=== PATIENT | female | born 1945 | race Caucasian/White ===

== ENCOUNTER → 2017-09-07 15:25 | Outpatient (CLI) | payer MEDICARE, OTHER, SELFPAY ==
[2017-09-07 17:42] LABS: Hematocrit 37.6 % (37-47); Hemoglobin 12.5 g/dl (12.0-15.0); Mean Corp Hgb Conc 33.2 g/gl (32-36); Mean Corpuscular Hgb 29.2 pg (27.0-32.0); Mean Corpuscular Volume 87.9 fL (81-99); Mean Platelet Vol. 9.9 fl (6.2-12.0); Platelet Count 280 K/mm3 (150-450); RBC Distribution Width CV 12.7 % (11.6-14.6); RBC Distribution Width SD 39.9 fl (35.1-43.9); Red Blood Count 4.28 M/mm3 (4.2-5.4); White Blood Count 5.9 K/mm3 (4.4-11.0)
[2017-09-07 17:51] LABS: Scan Indicated on CBC? Y/N NO
[2017-09-07 18:05] LABS: Erythrocyte Sedimentation Rate 20 mm/hr (0-30)
[2017-09-07 18:13] LABS: CRP 6.06 mg/L (0.0-3.0)
== END ==
PROVIDERS: Family Provider Preventive Medicine Occupational Medicine; PCP Preventive Medicine Occupational Medicine; Visit Provider Internal Medicine Gastroenterology
DX: K50.90 Crohn's disease, unspecified, without complications (principal)
CPT/HCPCS: 36415; 85027; 85652; 86140

== ENCOUNTER → 2017-10-15 09:56 | Outpatient (CLI) | payer MEDICARE, OTHER, SELFPAY ==
[2017-10-15 12:20] LABS: Microalbumin,Random Urine 32.4 mg/L (NO RANGE EST.)
[2017-10-15 12:30] LABS: Vitamin B12 741 pg/mL (211-911)
[2017-10-15 12:34] LABS: Hemoglobin A1c 7.4 % (4.2-6.3)
[2017-10-15 13:15] LABS: AST(SGOT) 18 U/L (15-37); Alanine Aminotransfer ALT/SGPT 24 U/L (13-56); Albumin, Serum 3.9 g/dL (3.2-5.0); Alkaline Phosphatase 57 U/L (45-117); Anion Gap 7 (5-15); BUN 16 mg/dL (7-18); BUN/Creat Ratio 20.7 RATIO (10-20); Calcium,Total 8.6 mg/dL (8.5-10.1); Chloride 110 mmol/L (98-107); Cholesterol 133 mg/dL (200); Creatinine, Serum 0.77 mg/dL (0.55-1.02); EST Glomerular Filtration Rate 78 mL/min (>60); Est Glom Filt Rate - Afr Amer 94 mL/min (>60); Globulin 3.9 g/dL (2.2-4.2); Glucose 129 mg/dL (74-106); High Density Lipoprotein 36 mg/dL; Potassium 3.7 mmol/L (3.5-5.1); Protein, Total 7.8 g/dL (6.4-8.2); Sodium Level 144 mmol/L (136-145); Triglycerides 138 mg/dL; Very Low Density Lipoprotein 28 mg/dL (5-40)
== END ==
PROVIDERS: Family Provider Preventive Medicine Occupational Medicine; PCP Preventive Medicine Occupational Medicine; Visit Provider Preventive Medicine Occupational Medicine
DX: E11.9 Type 2 diabetes mellitus without complications (principal); E78.5 Hyperlipidemia, unspecified; E53.8 Deficiency of other specified B group vitamins
CPT/HCPCS: 36415; 80053; 80061; 82043; 82570; 82607; 82746; 83036

== ENCOUNTER → 2018-03-22 15:16 | Outpatient (CLI) | payer MEDICARE, OTHER, SELFPAY ==
--- NOTE | 2018-03-22 15:19 | BI_ITS ---
MAMMOGRAPHY - BILATERAL SCREENING REASON FOR EXAM: Female, 72 years old. Routine annual screening examination. PERTINENT HISTORY: Sister with breast cancer. TECHNIQUE: Digital bilateral breast titus (3D mammographic acquisition) in the CC and MLO projections. 2-D mediolateral oblique (MLO) and craniocaudad (CC) views of both breasts were obtained. CAD: Full Field Digital Mammography with Computer Added Detection was performed. COMPARISON: Comparison is made with prior examination dated February 09, 2017 and February 09, 2016. FINDINGS: Breast Composition: There are scattered areas of fibroglandular density. There are no dominant masses or suspicious calcifications. Stable appearance of the bilateral axillary lymph nodes. No other significant abnormalities are identified. There has been no significant change since the prior study. BI/SCREENING MAMM (CAD), BILAT IMPRESSION: Stable bilateral screening mammogram. Yearly follow-up mammogram recommended. (A) ASSESSMENT CATEGORY: BIRADS Category 2: Benign. A letter regarding these results will be sent to the patient by the facility within 30 days. Approximately 10% of breast cancers are not detected by mammography. A normal mammogram should not delay biopsy of a clinically suspicious abnormality. [id number] Electronically Signed: Marcelino Gomes MD at 8:21 EDT Tel [phone], Service support ,
== END ==
PROVIDERS: Family Provider Preventive Medicine Occupational Medicine; PCP Preventive Medicine Occupational Medicine; Visit Provider Preventive Medicine Occupational Medicine
DX: Z12.31 Encounter for screening mammogram for malignant neoplasm of breast (principal)
CPT/HCPCS: 77063; 77067

== ENCOUNTER 2018-06-10 06:00 | Emergency (ER) | payer MEDICARE, OTHER, SELFPAY ==
[2018-06-10 06:02] VITALS: BP 159/76; PULSE 71; RESP 16; TEMP 36.7; O2SAT 96; BMI 36.1
--- NOTE | 2018-06-10 06:40 | ED.VIS.GEN ---
History of Present Illness Chief Complaint: Dizziness Informant: Patient, Family Onset: Today, Hours - 4 Context: Sudden Onset - woke me up around 2-3AM Timing: Continuous Quality: spinning/vertigo, and off balance when walking Location: head Current Severity: Moderate Maximum Severity: Severe Worsened by: certain movements or positions Relieved by: remaining still, or walking with assistance Associated Symptoms: nausea. mild headache bifrontal. Narrative: Patient states she has had vertigo off and on for years but never this bad. No recent head injury or illness, including upper respiratory infections over the past month. She states she has been in contact with a family member with a cold lately but she has had no symptoms of 1. No ringing in her ears or earache. No focal neurologic symptoms or confusion or neck stiffness/pain. She has been able to manage vertigo in the past with Claritin, and has never taken other medicines or been seen for her vertigo although her doctor is aware of it, she states. Prior similar symptoms: Yes - Past Medical History (1) Crohn's disease Status: Chronic (2) Diabetes mellitus Status: Chronic (3) Hypertension Status: Chronic Past Medical History - Allergies and Home Meds Allergies/Adverse Reactions: Allergies ciprofloxacin [From Cipro] Allergy (Verified 10/30/14 21:37) Anaphylaxis ciprofloxacin HCl [From Cipro] Allergy (Verified 10/30/14 21:37) Anaphylaxis aspirin Adverse Reaction (Verified 05/27/15 16:01) Other cetirizine HCl [From Zyrtec] Adverse Reaction (Verified 10/30/14 21:37) Rash nitroglycerin Adverse Reaction (Verified 05/27/15 15:59) Anaphylaxis propoxyphene HCl [From Darvon] Adverse Reaction (Verified 10/30/14 21:37) Other sitagliptin phosphate [From Januvia] Adverse Reaction (Verified 10/30/14 21:37) Rash tioconazole [From Monistat 1 (tioconazole)] Adverse Reaction (Verified 10/30/14 21:37) Rash tramadol Adverse Reaction (Verified 06/10/18 06:06) Unknown Primary Care Physician: Ortega Sebastian DO [Primary Care Provider] - Surgical History: hysterectomy, total knee arthroplasty Lives: Spouse/ Significant Other Smoking Status: Former smoker - Family History Maternal Family History: Reports: Hypertension, Stroke - age 94 Paternal Family History: Reports: Diabetes, Heart Disease - age 59 Sibling Family History: Reports: Diabetes Offspring Family History: Reports: - - 2 children, 3 grandchildren Review of Systems General: Denies: Chills, Fever, Sweats Eyes: Reports: Visual changes - bilaterally - only when vertiginous - difficult to see. Denies: Diplopia ENT: Denies: Bilateral ear pain, Rhinorrhea, Sore throat Cardiovascular: Denies: Chest pain, Palpitations Respiratory: Denies: Dyspnea, Cough, Dyspnea on exertion Gastrointestinal: Reports: Nausea, Diarrhea - x 3d, improving. Denies: Abdominal pain, Vomiting, Melena, Hematochezia Genitourinary: Denies: Dysuria, Hematuria, Frequency Musculoskeletal: Denies: Neck pain, Back pain Skin: Denies: Rash Neurological: Denies: Headache, Weakness, Numbness Physical Exam Vital Signs/Narrative: Vital Signs Temp Pulse Resp BP Pulse Ox 06/10/18 06:02 98.0 F 71 16 159/76 H 96 Inital Vital Signs reviewed: Yes General: Well nourished, Well developed Head: Normocephalic, Atraumatic Eyes: Perrl, EOMI ENT: Moist mucous membranes, No rhinorrhea, TM's clear - and nml EAC bilat Neck: Supple, Nontender Back: Nontender, Normal Inspection Extremities: Nontender, No edema Skin: Normal color, No rash Neurological: Alert, Oriented x3, Cranial nerves II-XII grossly intact, Normal Strength, Normal Sensation, - - With Interior-Hallpike maneuver, significant symptoms going to the left, mild to the right. Both sides reproduce her vertigo.. Negative for: Normal Gait - walks well w/ assistant housekeeping manager holding her hand. normal FTN and HTS bilat. Psychological: Normal affect Diagnostic/Tx/Re-eval - Medical Decision Making Vital signs are stable, suspect peripheral vertigo here, I am not concerned about her having an acute stroke. Given Zofran and meclizine and will reevaluate. If improved, I will give her prescriptions for both and she can follow-up with her PCP or ENT if she has continuous significant symptoms. ED Disposition - Plan for ED Patient: Disposition: Home or Assisted Living Chief Complaint: Dizziness Diagnosis: Peripheral vertigo, unspecified Instructions: ED BPV Vertigo, ED Vertigo Unspecified Prescriptions: Ondansetron [Zofran Odt] 8 mg PO Q8H PRN PRN #12 tab PRN Reason: Nausea Meclizine HCl 25 mg PO Q8H PRN #16 tab PRN Reason: Vertigo Referrals: Ortega Sebastian DO [Primary Care Provider] - 3-5 Days if not improving Franki Jurado MD [STAFF PHYSICIAN] - (may call for follow up appt or see your primary doctor first)
--- NOTE | 2018-06-10 06:47 | ED.DCSUM_ITS ---
History of Present Illness Chief Complaint: Dizziness Informant: Patient, Family Onset: Today, Hours - 4 Context: Sudden Onset - woke me up around 2-3AM Timing: Continuous Quality: spinning/vertigo, and off balance when walking Location: head Current Severity: Moderate Maximum Severity: Severe Worsened by: certain movements or positions Relieved by: remaining still, or walking with assistance Associated Symptoms: nausea. mild headache bifrontal. Narrative: Patient states she has had vertigo off and on for years but never this bad. No recent head injury or illness, including upper respiratory infections over the past month. She states she has been in contact with a family member with a cold lately but she has had no symptoms of 1. No ringing in her ears or earache. No focal neurologic symptoms or confusion or neck stiffness/pain. She has been able to manage vertigo in the past with Claritin, and has never taken other medicines or been seen for her vertigo although her doctor is aware of it, she states. Prior similar symptoms: Yes - Past Medical History (1) Crohn's disease Status: Chronic (2) Diabetes mellitus Status: Chronic (3) Hypertension Status: Chronic Past Medical History - Allergies and Home Meds Allergies/Adverse Reactions: Allergies ciprofloxacin [From Cipro] Allergy (Verified 10/30/14 21:37) Anaphylaxis ciprofloxacin HCl [From Cipro] Allergy (Verified 10/30/14 21:37) Anaphylaxis aspirin Adverse Reaction (Verified 05/27/15 16:01) Other cetirizine HCl [From Zyrtec] Adverse Reaction (Verified 10/30/14 21:37) Rash nitroglycerin Adverse Reaction (Verified 05/27/15 15:59) Anaphylaxis propoxyphene HCl [From Darvon] Adverse Reaction (Verified 10/30/14 21:37) Other sitagliptin phosphate [From Januvia] Adverse Reaction (Verified 10/30/14 21:37) Rash tioconazole [From Monistat 1 (tioconazole)] Adverse Reaction (Verified 10/30/14 21:37) Rash tramadol Adverse Reaction (Verified 06/10/18 06:06) Unknown Primary Care Physician: Ortega Sebastian DO [Primary Care Provider] - Surgical History: hysterectomy, total knee arthroplasty Lives: Spouse/ Significant Other Smoking Status: Former smoker - Family History Maternal Family History: Reports: Hypertension, Stroke - age 94 Paternal Family History: Reports: Diabetes, Heart Disease - age 59 Sibling Family History: Reports: Diabetes Offspring Family History: Reports: - - 2 children, 3 grandchildren Review of Systems General: Denies: Chills, Fever, Sweats Eyes: Reports: Visual changes - bilaterally - only when vertiginous - difficult to see. Denies: Diplopia ENT: Denies: Bilateral ear pain, Rhinorrhea, Sore throat Cardiovascular: Denies: Chest pain, Palpitations Respiratory: Denies: Dyspnea, Cough, Dyspnea on exertion Gastrointestinal: Reports: Nausea, Diarrhea - x 3d, improving. Denies: Abdominal pain, Vomiting, Melena, Hematochezia Genitourinary: Denies: Dysuria, Hematuria, Frequency Musculoskeletal: Denies: Neck pain, Back pain Skin: Denies: Rash Neurological: Denies: Headache, Weakness, Numbness Physical Exam Vital Signs/Narrative: Vital Signs Temp Pulse Resp BP Pulse Ox 06/10/18 06:02 98.0 F 71 16 159/76 H 96 Inital Vital Signs reviewed: Yes General: Well nourished, Well developed Head: Normocephalic, Atraumatic Eyes: Perrl, EOMI ENT: Moist mucous membranes, No rhinorrhea, TM's clear - and nml EAC bilat Neck: Supple, Nontender Back: Nontender, Normal Inspection Extremities: Nontender, No edema Skin: Normal color, No rash Neurological: Alert, Oriented x3, Cranial nerves II-XII grossly intact, Normal Strength, Normal Sensation, - - With John Day-Hallpike maneuver, significant symptoms going to the left, mild to the right. Both sides reproduce her vertigo.. Negative for: Normal Gait - walks well w/ operations administrative assistant holding her hand. normal FTN and HTS bilat. Psychological: Normal affect Diagnostic/Tx/Re-eval - Medical Decision Making Vital signs are stable, suspect peripheral vertigo here, I am not concerned about her having an acute stroke. Given Zofran and meclizine and will reevaluate. If improved, I will give her prescriptions for both and she can f ollow-up with her PCP or ENT if she has continuous significant symptoms. ED Disposition - Plan for ED Patient: Disposition: Home or Assisted Living Chief Complaint: Dizziness Diagnosis: Peripheral vertigo, unspecified Instructions: ED BPV Vertigo, ED Vertigo Unspecified Prescriptions: Ondansetron [Zofran Odt] 8 mg PO Q8H PRN PRN #12 tab PRN Reason: Nausea Meclizine HCl 25 mg PO Q8H PRN #16 tab PRN Reason: Vertigo Referrals: Ortega Sebastian DO [Primary Care Provider] - 3-5 Days if not improving Franki Jurado MD [STAFF PHYSICIAN] - (may call for follow up appt or see your primary doctor first)
[2018-06-10] MEDS: Meclizine HCl 25 MG Tablet PO (06:51)
[2018-06-10] MEDS: Ondansetron ODT 4 MG Tablet 8 MG PO (06:51)
== END 2018-06-10 07:54 | disposition home or self-care (01) ==
PROVIDERS: Emergency Provider Emergency Medicine; Family Provider Preventive Medicine Occupational Medicine; PCP Preventive Medicine Occupational Medicine
DX: H81.399 Other peripheral vertigo, unspecified ear (principal); K50.90 Crohn's disease, unspecified, without complications; E11.9 Type 2 diabetes mellitus without complications; I10 Essential (primary) hypertension; Z79.899 Other long term (current) drug therapy; Z87.891 Personal history of nicotine dependence; Z96.659 Presence of unspecified artificial knee joint; Z90.710 Acquired absence of both cervix and uterus
CPT/HCPCS: 99283

== ENCOUNTER → 2018-09-26 12:28 | Outpatient (CLI) | payer MEDICARE, OTHER, SELFPAY ==
--- NOTE | 2018-09-26 12:34 | BD_ITS ---
STUDY: DUAL ENERGY X-RAY ABSORPTIOMETRY / DXA REASON FOR EXAM: Female, 73 years old. The patient is postmenopausal. Loss of height. TECHNIQUE: Bone Mineral Density (BMD) measurements of lumbar spine and bilateral hips were obtained. COMPARISON: Comparison is made with prior study dated August 18, 2010. FINDINGS: Lumbar Spine (L1-L4): g/cm2 (1.118) / T-score (-0.7) / Z-score (1.0) Findings are suggestive of normal bone density with a low fracture risk. Left Femur Total: g/cm2 (0.941) / T-score (-0.5) / Z-score (1.0) Left Femoral Neck: g/cm2 (0.901) / T-score (-1.0) / Z-score (0.8) Right Femur Total: g/cm2 (0.927) / T-score (0.6) / Z-score (0.9) Right Femoral Neck: g/cm2 (0.951) / T-score (-0.6) / Z-score (1.2) The T-Scores on the most recent prior examination were: Lumbar Spine (L1-L4): There has been improvement of bone density since the previous examination. Left Femur Total: which represents a worsening of 8.7%. Right Femur Total: which represents a worsening of 6.5%. BD/Dexa Bone Density Study IMPRESSION: The patient is considered normal as outlined below according to World Dmitri Organization (WHO) criteria with a low fracture risk. There has been worsening of bone density since the previous examination. Reference Information: The T-score is the number of standard deviations above or below the standard which is normal for young adults at their peak bone mineral density. The World Health Organization (WHO) interprets the T-scores as follows: Above -1 Normal bone density Between -1 and -2.5 Osteopenia Equal to / or below -2.5 Osteoporosis As a practical clinical guideline, osteopenia may be graded as follows: Mild -1 through -1.5 Moderate -1.6 through -2.0 Severe -2.1 through -2.4 The Z-score is the number of standard deviations above or below age-matched controls. A Z-score of less than -1.5 would be considered abnormal. References: 1. NIH Osteoporosis and Related Bone Diseases http://www.osteo.org 2. International Society for Clinical Densitometry http://www.iscd.org 3. National Osteoporosis Foundation http://www.nof.org Electronically Signed: Marcelino Gomes, at 13:14 EDT , Service support ,
== END ==
PROVIDERS: Family Provider Preventive Medicine Occupational Medicine; PCP Preventive Medicine Occupational Medicine; Referring Provider Preventive Medicine Occupational Medicine; Visit Provider Preventive Medicine Occupational Medicine
DX: Z78.0 Asymptomatic menopausal state (principal)
CPT/HCPCS: 77080

== ENCOUNTER → 2019-02-06 10:25 | Outpatient (CLI) | payer MEDICARE, OTHER, SELFPAY ==
[2019-02-06 13:04] LABS: Vitamin B12 484 pg/mL (211-911)
[2019-02-06 13:11] LABS: ALB/GLOB Ratio 0.9 RATIO (0.9-2.4); AST(SGOT) 11 U/L (15-37); Alanine Aminotransfer ALT/SGPT 19 U/L (13-56); Albumin, Serum 3.7 g/dL (3.2-5.0); Alkaline Phosphatase 49 U/L (45-117); Anion Gap 5 (5-15); BUN 17 mg/dL (7-18); BUN/Creat Ratio 21.4 RATIO (10-20); Calcium,Total 8.9 mg/dL (8.5-10.1); Chloride 108 mmol/L (98-107); Cholesterol 139 mg/dL (200); EST Glomerular Filtration Rate 75 mL/min (>60); Est Glom Filt Rate - Afr Amer 91 mL/min (>60); Globulin 3.9 g/dL (2.2-4.2); Glucose 134 mg/dL (74-106); High Density Lipoprotein 37 mg/dL; Potassium 3.8 mmol/L (3.5-5.1); Protein, Total 7.6 g/dL (6.4-8.2); Sodium Level 140 mmol/L (136-145); Triglycerides 141 mg/dL; Very Low Density Lipoprotein 28 mg/dL (5-40)
[2019-02-06 13:21] LABS: Hemoglobin A1c 6.4 % (4.2-6.3)
== END ==
PROVIDERS: Family Provider Preventive Medicine Occupational Medicine; PCP Preventive Medicine Occupational Medicine; Referring Provider Preventive Medicine Occupational Medicine; Visit Provider Preventive Medicine Occupational Medicine
DX: E11.9 Type 2 diabetes mellitus without complications (principal); E78.5 Hyperlipidemia, unspecified; I10 Essential (primary) hypertension; E53.8 Deficiency of other specified B group vitamins
CPT/HCPCS: 36415; 80053; 80061; 82607; 83036

== ENCOUNTER 2019-02-13 13:00 | Outpatient (RCR) | payer MEDICARE, OTHER, SELFPAY ==
--- NOTE | 2019-01-08 14:34 | HP.PTEVAL ---
Patient's Visit Information WHITNEY HILLS is a 73 year old F referred to Physical Therapy by Murali Dean DO with a diagnosis of . Date of Evaluation: Physical Therapist: Danuta Atkinson PT, Cert MDT - Anticipated Interventions Thank you for the opportunity to evaluate your patient. For Medicare and Medicare HMO plans, please review the plan of care and approve it. It will need to be FAXED BACK to us at [phone] for Medicare purposes. For Medicare only, by signing this I certify the plan of care. Please let me know if there are questions or concerns regarding this plan of care. Physician Signature: Date:
--- NOTE | 2019-02-13 13:58 | HP.PTREVAL ---
Murali Dean, DO, It has been my pleasure to treat WHITNEY HILLS over the last 9 visits for LUMBAR DDD AND NECK PAIN.. Please see the progress note below for an update on the physical therapy plan of care! Subjective: I THINK ITS BETTER THAN WHAT IT WAS. PATIENT REPORTS SHE LOVE'S THE WATER BUT THE DOCTOR THAT MADE HER BRACE RECOMMENDED TRANSITIONING TO LAND AND PATIENT AGREES. SHE REPORTS THE WATER WAS HELPING IN SOME WAYS BUT CAUSING OTHER PROBLEMS. WANTS TO TRY LAND PT WITH LEFT BRACE AND RIGHT ORTHOTIC IN PLACE. CORTES'T WITH ARTHRITIS TOMORROW. ONLY HAVING LOW BACK DISCOMFORT RIGHT NOW. NO PAIN. PAIN IN RIGHT LEG THIS MORNING BUT STRETCHED HER AND THAT HELPS. FLEETING PAINS RIGHT PROX LATERAL LEG PAIN. PATIENT REPORTS SHE CAN'T RECOGNIZE WHAT IS CAUSING THIS PAIN OR SHE WOULD STOP IT. HAD SOME GROIN PAIN TOO BUT IT IS GONE. Objective/Function: UPON EXAM TODAY THERE ARE NO SIGNIFICANT CHANGES SINCE INITAL EVAL EXCEPT LEFT KNEE ROM HAS IMPROVED TO -20 DEG EXT TO 113 DEG FLEX AND CAROLE LUMBAR SG ROM IMPROVED FROM MICHAELA LOSS TO MODERATE. LEFT ANKLE BRACE NOT REMOVED DURING TESTING TODAY. SHE IS A GOOD CANDIDATE TO TRY LAND BASED THERAPY. Plan Plan: POSTURE CORRECTION/STRENGTHENING, INSTRUCTION IN APPROPRIATE BODY MECHANICS AND ACTIVITY MODIFICATIONS. DLS STARTING WITH A NEUTRAL SPINE PROGRESSING ROM TOLERATED. CAROLE LE ROM, STRETCHING AND STRENGTHENING. HEP INSTRUCTION. Goals Goal 1:: DECREASE C/O CAROLE LEG PAIN Goal Time Frame: 4-6 Weeks Goal Progress: Progressing Goal 2:: IMPROVE LIFTING, WALKING, STANDING, SOCIAL LIFE AND HOMEMAKING FUNCTION Goal Time Frame: 4-6 Weeks Goal Progress: Progressing Goal 3:: INSTRUCT IN PROPHYLAXIS Goal Time Frame: 4-6 Weeks Goal Progress: Progressing Anticipated Interventions Patient/Client Instruction: Educate patient on: Condition, Plan of Care, Risk Factors, Benefits of Fitness Program For the Purpose of:: To improve self management Therapeutic Exercise to Include: Strength training, Body mechanics, Postural training, In an aquatic setting, Dynamic Lumbar Stabilization, Scapular Strength/Stabilization For the Purpose of:: To decrease pain, To increase ROM, To improve muscle performance and motor function, To increase tolerance to activity/condition/position, To improve ability of physical actions for home/community/work/leisure, To improve gait and locomotor functions Please do not hesitate to contact me at [phone] by phone or if you have questions or concerns regarding this new plan of care! Sincerely, Danuta Atkinson, PT, Cert MDT
--- NOTE | 2019-03-04 12:44 | HP.PTDCNRP_ITS ---
HP - Discharge Summary (1) - Patient Information WHITNEY HILLS was seen in my office for initial evaluation on 01/08/19. The following Plan of Care was established for this patient: Initial Frequency: 2-3x /Week Initial Duration: 4-6 Weeks - Anticipated Interventions Patient/Client Instruction: Educate patient on: Condition, Plan of Care, Risk Factors, Benefits of Fitness Program For the Purpose of:: To improve self management Therapeutic Exercise to Include: Strength training, Body mechanics, Postural training, In an aquatic setting, Dynamic Lumbar Stabilization, Scapular Strength/Stabilization For the Purpose of:: To decrease pain, To increase ROM, To improve muscle performance and motor function, To increase tolerance to activity/condition/position, To improve ability of physical actions for home/community/work/leisure, To improve gait and locomotor functions This patient was last seen in our office 02/13/19. Pertinent comments regarding their Physical therapy will appear below: PATIENT CALLED TO REPORT THAT SHE IS GOING TO TRY A MEDICATION FOR HER ARTHRITIS AND HAS NOT BEEN RELEASED BY HER DOCTOR TO RESUME PT AT THIS TIME. I AM GOING TO GO AHEAD AND DISCHARGE HER CHART AT THIS TIME. WE WOULD BE HAPPY TO RE- EVALUATE HER WHEN APPROPRIATE. SHE IS TO CONTACT US WHEN/IF FURTHER PT IS ORDERED. At this point I will be discontinuing this patient from physical therapy. I would be happy to see this patient again in the future if found appropriate by the physician. Thank you! Danuta Atkinson, PT, Cert MDT
== END 2019-02-13 19:00 | disposition home or self-care (01) ==
LOC: PT 13:00
PROVIDERS: Family Provider Preventive Medicine Occupational Medicine; PCP Preventive Medicine Occupational Medicine; Referring Provider Orthopaedic Surgery; Visit Provider Orthopaedic Surgery
DX: M51.36 Other intervertebral disc degeneration, lumbar region (principal); M54.2 Cervicalgia
CPT/HCPCS: 97113; 97162; 97530

== ENCOUNTER → 2019-02-19 11:52 | Outpatient (CLI) | payer MEDICARE, OTHER, SELFPAY ==
[2019-02-19 14:13] LABS: Erythrocyte Sedimentation Rate 43 mm/hr (0-30)
[2019-02-19 14:16] LABS: Absolute Lymphocyte Count 1.29 X10^3/uL (0.83-4.51); Absolute Neutrophil Count 4.8 X10^3/uL (2.0-7.7); Basophil# 0.03 X10^3/uL; Basophil% 0.5 % (0-1); Eosinophil# 0.09 X10^3/uL; Eosinophils% 1.4 % (0-5); Hematocrit 38.5 % (37-47); Hemoglobin 12.8 g/dL (12.0-15.0); Lymphocyte # 1.29 X10^3/ul (4.0); Lymphocyte % 19.5 % (19-41); Mean Corp Hgb Conc 33.2 g/dL (32-36); Mean Corpuscular Hgb 28.9 pg (27.0-32.0); Mean Corpuscular Volume 86.9 fL (81-99); Mean Platelet Vol. 10.4 fl (6.2-12.0); Monocyte% 6.1 % (0-10); NRBC Flagged by Analyzer 0 % (0-5); Neutrophil # 4.76 X10^3/uL (2.7-7.7); Platelet Count 292 K/mm3 (150-450); RBC Distribution Width CV 13.1 % (11.6-14.6); RBC Distribution Width SD 41.3 fl (35.1-43.9); Red Blood Count 4.43 M/mm3 (4.2-5.4); White Blood Count 6.6 K/mm3 (4.4-11.0)
[2019-02-19 14:18] LABS: CRP 4.82 mg/L (0.0-3.0); Rheumatoid Factor < 10.0 IU/mL (<15)
[2019-02-19 15:07] LABS: Hepatitis B Surface Antibody Non-Reactive; Hepatitis B Surface Antigen Non-Reactive (Nonreactive); Hepatitis C Antibody Non-Reactive (Nonreactive)
[2019-02-21 12:34] LABS: ANTINUCLEAR ANTIBODIES DIRECT Negative (Negative)
[2019-02-25 08:42] LABS: CCP IgG Antibodies 4 units (0-19); HLA B27 Negative (.); Hepatitis B Core AB IgM Negative (Negative)
== END ==
PROVIDERS: Family Provider Preventive Medicine Occupational Medicine; PCP Preventive Medicine Occupational Medicine; Referring Provider Internal Medicine Rheumatology; Visit Provider Internal Medicine Rheumatology
DX: M06.4 Inflammatory polyarthropathy (principal); M17.0 Bilateral primary osteoarthritis of knee; K50.90 Crohn's disease, unspecified, without complications
CPT/HCPCS: 36415; 81374; 85025; 85652; 86038; 86140; 86200; 86431; 86705; 86706; 86803; 87340

== ENCOUNTER → 2019-05-09 15:17 | Outpatient (CLI) | payer MEDICARE, OTHER, SELFPAY ==
--- NOTE | 2019-05-09 15:19 | BI_ITS ---
MAMMOGRAPHY - BILATERAL SCREENING REASON FOR EXAM: Female, 73 years old. Routine annual screening examination. PERTINENT HISTORY: Sister with breast cancer. TECHNIQUE: Digital bilateral breast apoorva (3D mammographic acquisition) in the CC and MLO projections. 2-D mediolateral oblique (MLO) and craniocaudad (CC) views of both breasts were obtained. CAD: Full Field Digital Mammography with Computer Added Detection was performed. COMPARISON: Comparison is made with prior study dated March 22, 2018 and February 09, 2017. FINDINGS: Breast Composition: There are scattered areas of fibroglandular density. There are no dominant masses or suspicious calcifications. Stable benign-appearing bilateral axillary lymph nodes. No other significant abnormalities are identified. There has been no significant change since the prior study. BI/SCREEN MAMM (CAD) W/APOORVA BILAT IMPRESSION: Stable bilateral screening mammogram. Yearly follow-up mammogram recommended. (A) ASSESSMENT CATEGORY: BIRADS Category 2: Benign. A letter regarding these results will be sent to the patient by the facility within 30 days. Approximately 10% of breast cancers are not detected by mammography. A normal mammogram should not delay biopsy of a clinically suspicious abnormality. [id number] Electronically Signed: Marcelino Gomes, at 8:42 EST , Service support ,
== END ==
PROVIDERS: Family Provider Preventive Medicine Occupational Medicine; PCP Preventive Medicine Occupational Medicine; Referring Provider Preventive Medicine Occupational Medicine; Visit Provider Preventive Medicine Occupational Medicine
DX: Z12.31 Encounter for screening mammogram for malignant neoplasm of breast (principal); Z80.3 Family history of malignant neoplasm of breast
CPT/HCPCS: 77063; 77067

== ENCOUNTER → 2019-05-26 10:43 | Outpatient (CLI) | payer MEDICARE, OTHER, SELFPAY ==
[2019-05-26 12:49] LABS: Absolute Lymphocyte Count 1.36 X10^3/uL (0.83-4.51); Basophil# 0.03 X10^3/uL; Basophil% 0.5 % (0-1); Eosinophil# 0.09 X10^3/uL; Eosinophils% 1.5 % (0-5); Hematocrit 38.2 % (37-47); Hemoglobin 12.3 g/dL (12.0-15.0); Lymphocyte # 1.36 X10^3/ul (4.0); Mean Corp Hgb Conc 32.2 g/dL (32-36); Mean Corpuscular Hgb 28.3 pg (27.0-32.0); Mean Platelet Vol. 9.9 fl (6.2-12.0); Monocyte% 6.8 % (0-10); NRBC Flagged by Analyzer 0 % (0-5); Neutrophil # 4.02 X10^3/uL (2.7-7.7); Neutrophil % 67.9 % (47-70); Platelet Count 282 K/mm3 (150-450); RBC Distribution Width CV 12.9 % (11.6-14.6); RBC Distribution Width SD 41.1 fl (35.1-43.9); Red Blood Count 4.34 M/mm3 (4.2-5.4); White Blood Count 5.9 K/mm3 (4.4-11.0)
[2019-05-26 13:02] LABS: AST(SGOT) 13 U/L (15-37); Alanine Aminotransfer ALT/SGPT 19 U/L (13-56); Albumin, Serum 3.8 g/dL (3.2-5.0); Alkaline Phosphatase 45 U/L (45-117); Anion Gap 6 (5-15); BUN 12 mg/dL (7-18); BUN/Creat Ratio 15.3 RATIO (10-20); Calcium,Total 8.9 mg/dL (8.5-10.1); Chloride 109 mmol/L (98-107); Creatinine, Serum 0.78 mg/dL (0.55-1.02); EST Glomerular Filtration Rate 76 mL/min (>60); Est Glom Filt Rate - Afr Amer 93 mL/min (>60); Globulin 3.9 g/dL (2.2-4.2); Glucose 144 mg/dL (74-106); Potassium 3.8 mmol/L (3.5-5.1); Protein, Total 7.7 g/dL (6.4-8.2); Sodium Level 140 mmol/L (136-145)
== END ==
PROVIDERS: Family Provider Preventive Medicine Occupational Medicine; PCP Preventive Medicine Occupational Medicine; Referring Provider Internal Medicine Rheumatology; Visit Provider Internal Medicine Rheumatology
DX: M06.4 Inflammatory polyarthropathy (principal); M17.0 Bilateral primary osteoarthritis of knee; Z79.899 Other long term (current) drug therapy
CPT/HCPCS: 36415; 80053; 85025

== ENCOUNTER → 2020-03-19 09:35 | Outpatient (CLI) | payer MEDICARE, OTHER, SELFPAY ==
[2020-03-19 13:26] LABS: Hemoglobin A1c 6.8 % (3.8-5.6)
[2020-03-19 13:41] LABS: ALB/GLOB Ratio 0.9 RATIO (0.9-2.4); AST(SGOT) 12 U/L (15-37); Alanine Aminotransfer ALT/SGPT 17 U/L (13-56); Albumin, Serum 3.6 g/dL (3.2-5.0); Alkaline Phosphatase 46 U/L (45-117); Anion Gap 5 (5-15); BUN 12 mg/dL (7-18); BUN/Creat Ratio 14.6 RATIO (10-20); Calcium,Total 8.8 mg/dL (8.5-10.1); Chloride 107 mmol/L (98-107); Cholesterol 146 mg/dL (200); Creatinine, Serum 0.82 mg/dL (0.55-1.02); EST Glomerular Filtration Rate 72 mL/min (>60); Est Glom Filt Rate - Afr Amer 88 mL/min (>60); Glucose 131 mg/dL (74-106); High Density Lipoprotein 34 mg/dL; Potassium 3.7 mmol/L (3.5-5.1); Protein, Total 7.6 g/dL (6.4-8.2); Sodium Level 141 mmol/L (136-145); Triglycerides 121 mg/dL; Very Low Density Lipoprotein 24 mg/dL (5-40)
== END ==
PROVIDERS: PCP Preventive Medicine Occupational Medicine; Referring Provider Preventive Medicine Occupational Medicine; Visit Provider Preventive Medicine Occupational Medicine
DX: E11.9 Type 2 diabetes mellitus without complications (principal); E78.5 Hyperlipidemia, unspecified; E53.8 Deficiency of other specified B group vitamins; Z79.899 Other long term (current) drug therapy
CPT/HCPCS: 36415; 80053; 80061; 83036

== ENCOUNTER → 2021-02-02 10:25 | Outpatient (CLI) | payer MEDICARE, OTHER, SELFPAY ==
[2021-02-02 12:27] LABS: AST(SGOT) 11 U/L (15-37); Alanine Aminotransfer ALT/SGPT 21 U/L (13-56); Albumin, Serum 3.8 g/dL (3.2-5.0); Alkaline Phosphatase 44 U/L (45-117); Anion Gap 6 (5-15); BUN 12 mg/dL (7-18); BUN/Creat Ratio 13.9 RATIO (10-20); Calcium,Total 8.5 mg/dL (8.5-10.1); Chloride 106 mmol/L (98-107); Cholesterol 144 mg/dL (200); Creatinine, Serum 0.87 mg/dL (0.55-1.02); EST Glomerular Filtration Rate 68 mL/min (>60); Est Glom Filt Rate - Afr Amer 82 mL/min (>60); Globulin 3.9 g/dL (2.2-4.2); Glucose 150 mg/dL (74-106); High Density Lipoprotein 41 mg/dL; Potassium 3.9 mmol/L (3.5-5.1); Protein, Total 7.7 g/dL (6.4-8.2); Sodium Level 139 mmol/L (136-145); Triglycerides 105 mg/dL; Very Low Density Lipoprotein 21 mg/dL (5-40)
[2021-02-02 12:32] LABS: Vitamin B12 586 pg/mL (211-911)
[2021-02-02 12:35] LABS: Microalbumin,Random Urine 17.1 mg/L (NO RANGE EST.)
== END ==
PROVIDERS: PCP Preventive Medicine Occupational Medicine; Referring Provider Preventive Medicine Occupational Medicine; Visit Provider Preventive Medicine Occupational Medicine
DX: E11.9 Type 2 diabetes mellitus without complications (principal); E78.5 Hyperlipidemia, unspecified; E53.8 Deficiency of other specified B group vitamins
CPT/HCPCS: 36415; 80053; 80061; 82043; 82607; 83036

== ENCOUNTER → 2021-02-17 16:40 | Outpatient (CLI) | payer MEDICARE, OTHER, SELFPAY ==
--- NOTE | 2021-02-17 16:32 | BI_ITS ---
MAMMOGRAPHY - BILATERAL SCREENING REASON FOR EXAM: Female, 75 years old. Routine annual screening examination. PERTINENT HISTORY: Sister with breast cancer. TECHNIQUE: Digital bilateral breast apoorva (3D mammographic acquisition) in the CC and MLO projections. 2-D mediolateral oblique (MLO) and craniocaudad (CC) views of both breasts were obtained. CAD: Full Field Digital Mammography with Computer Added Detection was performed. COMPARISON: Comparison is made with prior study dated 05/09/2019 and 03/22/2018. FINDINGS: Breast Composition: There are scattered areas of fibroglandular density. There are no dominant masses or suspicious calcifications. Stable small benign-appearing bilateral axillary lymph nodes. No other significant abnormalities are identified. There has been no significant change since the prior study. BI/SCRN MAMM (CAD)W/APOORVA BILAT IMPRESSION: Stable bilateral screening mammogram. Yearly follow-up mammogram recommended. (A) ASSESSMENT CATEGORY: BIRADS Category 2: Benign. A letter regarding these results will be sent to the patient by the facility within 30 days. Approximately 10% of breast cancers are not detected by mammography. A normal mammogram should not delay biopsy of a clinically suspicious abnormality. [id number] Electronically Signed: Marcelino Gomes MD at 9:09 EDT , Service support ,
== END ==
PROVIDERS: PCP Preventive Medicine Occupational Medicine; Referring Provider Preventive Medicine Occupational Medicine; Visit Provider Preventive Medicine Occupational Medicine
DX: Z12.31 Encounter for screening mammogram for malignant neoplasm of breast (principal); Z80.3 Family history of malignant neoplasm of breast
CPT/HCPCS: 77063; 77067

== ENCOUNTER → 2021-05-10 15:00 | Outpatient (CLI) | payer MEDICARE, OTHER, SELFPAY ==
[2021-05-10 17:48] LABS: Hematocrit 39.4 % (37-47); Hemoglobin 12.5 g/dL (12.0-15.0); Mean Corp Hgb Conc 31.7 g/dL (32-36); Mean Corpuscular Hgb 28.2 pg (27.0-32.0); Mean Corpuscular Volume 88.9 fL (81-99); Mean Platelet Vol. 9.9 fl (6.2-12.0); Platelet Count 313 K/mm3 (150-450); RBC Distribution Width SD 45.6 fl (35.1-43.9); Red Blood Count 4.43 M/mm3 (4.2-5.4); White Blood Count 7.1 K/mm3 (4.4-11.0)
[2021-05-10 17:59] LABS: Erythrocyte Sedimentation Rate 32 mm/hr (0-30)
[2021-05-10 18:03] LABS: CRP 6.04 mg/L (0.0-3.0)
== END ==
PROVIDERS: PCP Preventive Medicine Occupational Medicine; Referring Provider Internal Medicine Gastroenterology; Visit Provider Internal Medicine Gastroenterology
DX: K50.90 Crohn's disease, unspecified, without complications (principal)
CPT/HCPCS: 36415; 85027; 85652; 86140

== ENCOUNTER 2022-01-18 14:00 | Outpatient (RCR) | payer MEDICARE, OTHER, SELFPAY ==
--- NOTE | 2021-12-20 11:45 | HP.PTEVAL_ITS ---
Patient's Visit Information WHITNEY HILLS is a 76 year old F referred to Physical Therapy by [facility] with a diagnosis of ACUTE MIDELINE LOW BACK PAIN ,UNSCPECIFIED SCIATICA. Date of Evaluation: 12/19/21 Physical Therapist: Jeffrey Nair, PT, Cert MDT, OCS - Visit Plan Frequency: 2x /Week Duration: 4 Weeks Plan: PT INTERVETIONS DLS ,POSTURAL EX'S, LE FLEXABILITY ,AND FUNCTIONAL STRENGTHENING - Subjective This 76 y/o female presents to physical therapy to physical therapy with lumbar pain with radicular right leg. Patient has had symptoms ~ 2months .Patient has had intermittent lumbar pain and occasionally symptoms. Seen biological science aide initially. Patient seen neurologist and recommended PT. Also ,in past patient uses orthotics in past . Patient also seen Orthopedic back specialist thought in was pain from back. Location of pain LS groin to thigh to lateral tibia to foot. No MEDS ,just teylonal . Denies paresthesia/tingling. Occasional sharp pain otherwise throbbing ache. Aggravating sitting, standing , bending ,lifting ,driving. Alleviating factors walking. Patient symptoms affects sleeping. Coughing/sneezing-. Bowel/bladder-. Patient symptoms affects QOL and housework tasks. SOCAIL: . VOCATION: retired - Pain Bilateral Back Pain Intensity (Out of 10): 6 Right Lower Extremity Pain Intensity (Out of 10): 5 Pain Intensity Range: 10 - Objective POSTURE: mild forward posture knees /hips flexed. SYMMETRIES: right leg is shorter. NEURO: denies paresthesia/tingling ,reflexes L3-4,L4-5,L5-S1 1/3. MMT: quads/hams/4/5,hip 4/5 ankle 4/5. AROM: knee flexion 10 -130 degrees. FLEXABLITY : HAMSTRINGS WFL. LUMBAR ROM: flexion min loss extension ,mod/severe loss, side glides min loss - Special Tests L/S Slump test left side: Negative L/S Slump test right side: Negative L/S Left Straight Leg Raise: Negative L/S Right Straight Leg Raise: Negative - Balance/Special Test Scores Oswestry Low Back Score: 16 - Goals Goal 1:: Patient to be I with HEP for back Goal Time Frame: 4-6 Weeks Goal 2:: Patient improve posture/body mechanics 80% of the time Goal Time Frame: 4-6 Weeks Goal 3:: Patient to demonstrate 50% improvement with improved function and decrease pain. Goal Time Frame: 4-6 Weeks Goal 4:: Patient improve lumbar ROM for function of recovery Goal Time Frame: 4-6 Weeks Goal 5:: Patient to improve back oswestry by 5 points to improve QOL Goal Time Frame: 4-6 Weeks - Rehabilitation Potential Physical Therapy Diagnosis: This patient has lumbar pain with symptoms in leg worse with positioning and movement testing thus benefit cont skilled PT thus benefit from skilled PT Rehabilitation Potential: Good - Anticipated Interventions Patient/Client Instruction: Educate patient on: Condition, Plan of Care For the Purpose of:: To decrease pain, To increase ROM, To improve muscle performance and motor function, To improve ability to perform ADL's, To improve ability of physical actions for home/community/work/leisure, To improve health of tissue, To decrease soft tissue restriction, To increase flexibility/ROM, To prevent re-injury Therapeutic Exercise to Include: Strength training, Endurance training, Balance training, Postural training, Flexibilty training, Dynamic Lumbar Stabilization For the Purpose of:: To decrease pain, To increase ROM, To improve muscle performance and motor function, To improve ability to perform ADL's, To increase tolerance to activity/condition/position, To decrease level of supervision to perform tasks, To decrease soft tissue restriction, To increase flexibility/ROM, To prevent re-injury Thank you for the opportunity to evaluate your patient. For Medicare and Medicare HMO plans, please review the plan of care and approve it. It will need to be FAXED BACK to us at [phone] for Medicare purposes. For Medicare only, by signing this I certify the plan of care. Please let me know if there are questions or concerns regarding this plan of care. Physician Signature: Date:
== END 2022-01-18 19:00 | disposition home or self-care (01) ==
LOC: PT 14:00
PROVIDERS: PCP Preventive Medicine Occupational Medicine
DX: M54.50 Low back pain, unspecified (principal)
CPT/HCPCS: 97110; 97162; 97530

== ENCOUNTER → 2022-09-08 | Outpatient (CLI) | payer MEDICARE, OTHER, SELFPAY ==
[2022-09-08 15:03] LABS: Hematocrit 41.4 % (37-47); Hemoglobin 13.7 g/dL (12.0-15.0); Mean Corp Hgb Conc 33.1 g/dL (32-36); Mean Corpuscular Hgb 29.3 pg (27.0-32.0); Mean Corpuscular Volume 88.7 fL (81-99); Mean Platelet Vol. 9.9 fl (6.2-12.0); Platelet Count 274 K/mm3 (150-450); RBC Distribution Width CV 12.6 % (11.6-14.6); RBC Distribution Width SD 40.6 fl (35.1-43.9); Red Blood Count 4.67 M/mm3 (4.2-5.4); White Blood Count 6.6 K/mm3 (4.4-11.0)
[2022-09-08 15:37] LABS: Microalbumin,Random Urine 17.1 mg/L (NO RANGE EST.)
[2022-09-08 15:51] LABS: Hemoglobin A1c 6.5 % (3.8-5.6); Progesterone Level < 0.21 ng/mL (See Comment)
[2022-09-08 16:03] LABS: ALB/GLOB Ratio 0.9 RATIO (0.9-2.4); AST(SGOT) 14 U/L (15-37); Alanine Aminotransfer ALT/SGPT 19 U/L (13-56); Albumin, Serum 3.6 g/dL (3.2-5.0); Alkaline Phosphatase 38 U/L (45-117); Anion Gap 5 (5-15); BUN 14 mg/dL (7-18); BUN/Creat Ratio 16.4 RATIO (10-20); Calcium,Total 9.3 mg/dL (8.5-10.1); Chloride 104 mmol/L (98-107); Cholesterol 132 mg/dL (200); Creatinine, Serum 0.86 mg/dL (0.55-1.02); EST Glomerular Filtration Rate 69 mL/min (>60); Est Glom Filt Rate - Afr Amer 83 mL/min (>60); Globulin 3.9 g/dL (2.2-4.2); Glucose 117 mg/dL (74-106); High Density Lipoprotein 35 mg/dL; Potassium 4.2 mmol/L (3.5-5.1); Protein, Total 7.5 g/dL (6.4-8.2); Sodium Level 138 mmol/L (136-145); Thyroid Stim Hormone (TSH) 1.77 uIU/mL (0.358-3.74); Triglycerides 187 mg/dL; Very Low Density Lipoprotein 37 mg/dL (5-40)
== END | disposition home or self-care (01) ==
LOC: MTLAB 13:30
PROVIDERS: PCP Preventive Medicine Occupational Medicine; Referring Provider Preventive Medicine Occupational Medicine; Visit Provider Preventive Medicine Occupational Medicine
DX: E78.5 Hyperlipidemia, unspecified (principal); E11.9 Type 2 diabetes mellitus without complications; L68.0 Hirsutism
CPT/HCPCS: 36415; 80053; 80061; 82043; 83036; 84144; 84403; 84443; 85027

== ENCOUNTER → 2022-09-21 | Outpatient (CLI) | payer MEDICARE, OTHER, SELFPAY ==
--- NOTE | 2022-09-21 12:44 | BI_ITS ---
MAMMOGRAPHY - BILATERAL SCREENING 3-D TOMOSYNTHESIS REASON FOR EXAM: Female, 77 years old. SCREENING PERTINENT HISTORY: Sister with breast cancer.. TECHNIQUE: 2-D mammograms and 3-D Tomosynthesis of the breast (s) were performed. CAD was performed. COMPARISON: None. FINDINGS: The breast composition is composed of scattered fibroglandular density. Scattered benign calcifications are seen. No dense spiculated masses or suspicious microcalcifications are identified. No architectural distortion is identified. There is no skin thickening or retraction. There has been no significant change since the prior study. BI/SCRN MAMM (CAD)W/APOORVA BILAT IMPRESSION: No mammographic signs of malignancy. Routine yearly mammograms recommended. ASSESSMENT CATEGORY: BIRADS Category 1: Negative. A letter regarding these results will be sent to the patient by the facility within 30 days. FOLLOW UP RECOMMENDATION: Yearly follow up mammogram recommended. (A) Approximately 10% of breast cancers are not detected by mammography. A normal mammogram should not delay biopsy of a clinically suspicious abnormality. Electronically Signed: Jaime Petersen MD at 14:16 EDT ,
--- NOTE | 2022-09-21 12:55 | BD_ITS ---
STUDY: DUAL ENERGY X-RAY ABSORPTIOMETRY / DXA REASON FOR EXAM: Female, 77 years old. [id number] TECHNIQUE: Bone Mineral Density (BMD) measurements of lumbar spine and bilateral hips were obtained. COMPARISON: Comparison is made with prior study September 26, 2018. FINDINGS: Lumbar Spine (L1-L4): g/cm2 (1.048) / T-score (0.0) / Z-score (2.5) Findings are suggestive of normal bone density with a low fracture risk. Left Femur Total: g/cm2 (0.870) / T-score (-0.6) / Z-score (1.3) Left Femoral Neck: g/cm2 (0.750) / T-score (-0.9) / Z-score (1.2) Right Femur Total: g/cm2 (0.883) / T-score (-0.5) / Z-score (1.4) Right Femoral Neck: g/cm2 (0.850) / T-score (0.0) / Z-score (2.1) The T-Scores on the most recent prior examination were: Lumbar Spine (L1-L4): There has been improvement of bone density since the previous examination. Left Femur Total: which represents a worsening of 0.8%. Right Femur Total: which represents an improvement of 0.3%. BD/Dexa Bone Density Study IMPRESSION: The patient is considered normal as outlined below according to World Dmitri Organization (WHO) criteria with a low fracture risk. There has been improvement of bone density since the previous examination. Reference Information: The T-score is the number of standard deviations above or below the standard which is normal for young adults at their peak bone mineral density. The World Health Organization (WHO) interprets the T-scores as follows: Above -1 Normal bone density Between -1 and -2.5 Osteopenia Equal to / or below -2.5 Osteoporosis As a practical clinical guideline, osteopenia may be graded as follows: Mild -1 through -1.5 Moderate -1.6 through -2.0 Severe -2.1 through -2.4 The Z-score is the number of standard deviations above or below age-matched controls. A Z-score of less than -1.5 would be considered abnormal. References: 1. NIH Osteoporosis and Related Bone Diseases www osteo.org 2. International Society for Clinical Densitometry www iscd.org 3. National Osteoporosis Foundation www nof.org Electronically Signed: Marcelino Gomes MD at 9:28 EDT ,
== END | disposition home or self-care (01) ==
LOC: OPBD 12:42
PROVIDERS: PCP Preventive Medicine Occupational Medicine; Visit Provider Preventive Medicine Occupational Medicine
DX: Z12.31 Encounter for screening mammogram for malignant neoplasm of breast (principal); Z78.0 Asymptomatic menopausal state
CPT/HCPCS: 77063; 77067; 77080

== ENCOUNTER → 2023-01-08 | Outpatient (CLI) | payer MEDICARE, OTHER, SELFPAY ==
[2023-01-08 18:49] LABS: Follicle Stimulating Hormone 39.8 mIU/mL; Luteinizing Hormone 16.6 mIU/mL
[2023-01-12 05:07] LABS: 17-Hydroxyprogesterone 25 ng/dL (.)
[2023-01-12 11:08] LABS: Androstenedione 90 ng/dL (17-99); DHEA Sulfate 22.4 ug/dL (13.9-142.8); Testosterone, % Free 2.01 % (0.50-2.80); Testosterone, Total 373 ng/dL (3-67)
== END | disposition home or self-care (01) ==
LOC: MTLAB 14:14
PROVIDERS: PCP Preventive Medicine Occupational Medicine; Referring Provider Internal Medicine Endocrinology, Diabetes & Metabolism; Visit Provider Internal Medicine Endocrinology, Diabetes & Metabolism
DX: E28.1 Androgen excess (principal)
CPT/HCPCS: 36415; 82024; 82157; 82533; 82627; 83001; 83002; 83498; 84402; 84403; 82626

== ENCOUNTER → 2023-01-24 | Outpatient (CLI) | payer MEDICARE, OTHER, SELFPAY ==
--- NOTE | 2023-01-24 16:48 | CT_ITS ---
EXAM: CT ABDOMEN AND PELVIS WITHOUT AND WITH INTRAVENOUS CONTRAST CLINICAL INDICATION: Testosterone level 373, ATTN adrenal and ovaries, HYPERANDROGENISM. PRIOR HYSTERECTOMY BUT STILL HAS OVARIES, APPENDECTOMY. ADRENAL PROTOCOL TECHNIQUE: Helically acquired images were obtained of the abdomen and pelvis without and with intravenous contrast. This CT exam was performed using one or more of the following dose reduction techniques: automated exposure control, adjustment of the mA and/or kV according to patient size, and/or use of iterative reconstruction technique. CONTRAST: Oral and amp; IV Readi-CAT and amp; 100mL Isovue-300 COMPARISON: No relevant prior studies available. FINDINGS: LOWER THORAX: Unremarkable. Lung bases are clear. No cardiomegaly. No significant pericardial effusion. ABDOMEN: LIVER: Unremarkable. Homogeneous. No focal mass. GALLBLADDER AND BILE DUCTS: Unremarkable. No calcified gallstones. No gallbladder distention or wall edema. No intra- or extrahepatic biliary ductal dilation. PANCREAS: Unremarkable. No focal cystic or solid mass. SPLEEN: Unremarkable. Normal size without focal cystic or solid mass. ADRENALS: Unremarkable. No nodules. KIDNEYS AND URETERS: There are low-density masses in both kidneys compatible with simple cysts. No follow-up imaging is necessary. Delayed images show normal excretion of contrast from both kidneys. No hydronephrosis. STOMACH AND BOWEL: There is sigmoid diverticulosis with no evidence diverticulitis. No stomach or bowel distention. PELVIS: APPENDIX: No evidence of acute appendicitis. BLADDER: Unremarkable. REPRODUCTIVE: Patient is status post hysterectomy. ABDOMEN and PELVIS: INTRAPERITONEAL SPACE: Unremarkable. No ascites or other fluid collection. No free air. BONES/JOINTS: Unremarkable. No suspicious lytic or blastic abnormality. SOFT TISSUES: Unremarkable. No discrete abdominal or pelvic wall hernia. VASCULATURE: Unremarkable. Abdominal aorta is non-dilated. LYMPH NODES: Unremarkable. No enlarged lymph nodes. CT/CT Abd/Pelvis W/WO Contrast IMPRESSION: No acute findings in the abdomen or pelvis. Electronically Signed: Keith Cruz MD at 23:02 EDT ,
== END | disposition home or self-care (01) ==
LOC: CT 16:47
PROVIDERS: PCP Preventive Medicine Occupational Medicine; Referring Provider Internal Medicine Endocrinology, Diabetes & Metabolism; Visit Provider Internal Medicine Endocrinology, Diabetes & Metabolism
DX: E28.1 Androgen excess (principal); E28.8 Other ovarian dysfunction
CPT/HCPCS: 74178; Q9967

== ENCOUNTER → 2023-02-01 | Outpatient (CLI) | payer MEDICARE, OTHER, SELFPAY ==
--- NOTE | 2023-02-01 13:18 | US_ITS ---
STUDY: ULTRASOUND OF THE FEMALE PELVIS - COMPLETE REASON FOR EXAM: Female, 77 years old. Need visualization of ovaries bilaterally . Androgen excess. LMP: Patient is status post hysterectomy. TECHNIQUE: Transabdominal and Transvaginal TECHNICAL QUALITY: Adequate. COMPARISON: None. FINDINGS: The patient is status post hysterectomy. The right ovary is non-visualized. The left ovary is non-visualized. There is no fluid in the cul-de-sac. The pre void volume of the bladder was 210 ml. US/Pelvic w/ Transvaginal IMPRESSION: Status post hysterectomy. The ovaries were not visualized. Electronically Signed: Marcelino Gomes MD at 15:37 EDT ,
== END | disposition home or self-care (01) ==
LOC: OPUS 13:17
PROVIDERS: PCP Preventive Medicine Occupational Medicine; Referring Provider Internal Medicine Endocrinology, Diabetes & Metabolism; Visit Provider Internal Medicine Endocrinology, Diabetes & Metabolism
DX: E28.1 Androgen excess (principal)
CPT/HCPCS: 76830; 76856

== ENCOUNTER 2023-05-07 23:02 | Emergency (ER) | payer MEDICARE, OTHER, SELFPAY ==
[2023-05-07 23:02] VITALS: BP 170/76; BP 182/78; PULSE 61; PULSE 66; RESP 15; RESP 18; TEMP 36.3; O2SAT 94; O2SAT 95; BMI 36.1
--- NOTE | 2023-05-07 23:16 | EKG12_ITS ---
Test Reason : VERTIGO Blood Pressure : / mmHG Vent. Rate : 059 BPM Atrial Rate : 059 BPM P-R Int : 218 ms QRS Dur : 088 ms QT Int : 410 ms P-R-T Axes : 059 007 064 degrees QTc Int : 405 ms Sinus bradycardia with 1st degree A-V block Otherwise normal ECG Confirmed by LISETH LOYOLA, LAURO ([id number]), editor city HERI CARLSON ([id number]) on 05/09/2023 6:53:53 AM Referred By: Confirmed By:LAURO CHILDERS MD
--- NOTE | 2023-05-07 23:16 | CT_ITS ---
EXAMINATION: CT BRAIN WITHOUT CONTRAST, CTA HEAD, AND CTA NECK INDICATION: Vertigo TECHNIQUE: Noncontrast axial images were obtained of the brain. Subsequently, routine carotid CT angiogram protocol was performed without and with IV contrast. In addition, images were obtained of the [place] of [place]. NASCET criteria using the distal ICAs for comparison were used for evaluation of stenoses. 3D reconstructions were reviewed. A radiation dose optimization technique was used for this scan. IV Contrast dosage and agent: COMPARISON: FINDINGS: CT BRAIN WITHOUT CONTRAST: BRAIN PARENCHYMA: Normal soft tissue structures. Normal calvarium. There is mild cerebral atrophy with widening of the extra-axial spaces and ventricular dilatation. There is mild bilateral periventricular and subcortical white matter hypoattenuation which is symmetric in distribution. Calcified extra-axial mass in the left vertex. Normal basal ganglia and thalami. Normal brainstem. Normal cerebellum. There is no intracranial hemorrhage. There are no findings of an acute ischemic infarction. Normal visualized paranasal sinuses CTA NECK: AORTIC ARCH AND BRANCHES: Normal anatomy, patent. RIGHT CCA: No occlusion, significant stenosis or dissection. RIGHT ICA: No occlusion, significant stenosis or dissection. LEFT CCA: No occlusion, significant stenosis or dissection. LEFT ICA: No occlusion, significant stenosis or dissection. RIGHT VERTEBRAL ARTERY: No occlusion, significant stenosis or dissection. Dominant. LEFT VERTEBRAL ARTERY: No occlusion, significant stenosis or dissection. NECK SOFT TISSUES: Unremarkable. CTA HEAD: Anterior circulation: ICAs: No significant stenosis at the intracranial/visualized segments. ACAs: No significant stenosis at the visualized segments. ACOM: Present. MCAs: No significant stenosis at the visualized segments. Posterior circulation: PCOMs: Present pulp screen operator: No significant stenosis at the visualized segments. BASILAR ARTERY: No significant stenosis. VERTEBRAL ARTERIES: No significant stenosis at the intradural/visualized segments. No evidence of intracranial aneurysm or vascular malformation. CT/CTA Head AND Neck W/ Contrast IMPRESSION: 1. No acute intracranial abnormality. 2. Mild bilateral periventricular and subcortical white matter chronic small vessel disease with age appropriate cerebral atrophy. 3. Extra-axial calcified mass at the left vertex, most consistent with a meningioma. 4. Normal CTA of the neck and head Electronically Signed: Saurabh Desai MD at 0:38 EDT ,
--- NOTE | 2023-05-07 23:17 | EX.ED.DYSGE1 ---
HPI History of Present Illness Chief Complaint: Dizziness Narrative Narrative: With vertigo. This started just a few hours ago. She has paroxysms of vertigo that last a few seconds every time she turns her head a certain way after which she seems to improve as long as she does not move. She has a history of ago, she has been seen by Dr. Lynne in the past. She has no vision changes, no weakness or paresthesias she has no gait abnormalities. No chest pain or shortness of breath. [facility] Medical History (Updated 05/08/23 @ 00:[address] Jay Hood MD) Diabetes mellitus Hyperandrogenemia Hyperlipidemia Hypertension Home Medications esomeprazole magnesium 40 mg capsule,delayed release (Nexium) 44.6 mg PO QHS 06/18/14 [History Last Taken 10/03/14] simvastatin 20 mg tablet 20 mg PO QHS 06/18/14 [History Last Taken 10/02/14] lisinopril 5 mg tablet 5 mg PO DAILY ##30 10/08/14 [Rx Last Taken Unknown] cholecalciferol (vitamin D3) 25 mcg (1,000 unit) tablet (Vitamin D3) 2,000 unit PO DAILY 05/26/15 [History Last Taken Unknown] coenzyme Q10 200 mg capsule (Co Q-10) 200 mg PO DAILY 06/10/18 [History Last Taken Unknown] Lactobacillus paracasei and rhamnosus 11 billion cell capsule (Culturelle Advanced Regularity) cap PO DAILY 01/02/23 [History Last Taken Unknown] sitagliptin phosphate 50 mg tablet (Januvia) 50 mg PO DAILY 01/02/23 [History Last Taken Unknown] meclizine 50 mg tablet 50 mg PO BID #10 tabs 05/08/23 [Rx Last Taken Unknown] Allergy/AdvReac Type Severity Reaction Status Date / Time bee venom protein (honey bee) Allergy Severe Anaphylaxis Verified 02/22/23 14:34 ciprofloxacin [From Cipro] Allergy Anaphylaxis Verified 01/02/23 15:01 ciprofloxacin HCl Allergy Anaphylaxis Verified 01/02/23 15:01 [From Cipro] aspirin AdvReac Other Verified 01/02/23 15:01 cetirizine HCl [From Zyrtec] AdvReac Rash Verified 01/02/23 15:01 nitroglycerin AdvReac Anaphylaxis Verified 01/02/23 15:01 propoxyphene HCl AdvReac Other Verified 01/02/23 15:01 [From Darvon] sitagliptin phosphate AdvReac Rash Verified 01/02/23 15:01 [From Januvia] tioconazole AdvReac Rash Verified 01/02/23 15:01 [From Monistat 1 (tioconazole)] tramadol AdvReac Unknown Verified 01/02/23 15:01 Social History Smoking Status: Former smoker ROS ROS ED ROS Narrative General: No fever Eyes: No visual changes ENT: No upper airway congestion, normal voice Neck: No neck pain Cardiovascular: No chest pain Respiratory: No shortness of breath or cough Gastrointestinal: No abdominal pain, some nausea is present. Genitourinary: No dysuria Musculoskeletal: Denies myalgias no difficulty with ambulation Skin: No rash Neurological: No memory loss, confusion or any focal weakness. Vertigo as in HPI Psych: No recent behavioral changes Hematologic: No easy bleeding or easy bruising EXAM Physical Exam Narrative Exam Narrative: Physical exam General: Well nourished, Well developed, No Acute Distress Head: Normocephalic, Atraumatic Eyes: Conjunctiva not pale. Pupils are 3 mm equal and reactive. No nystagmus is present. There is some slight rightward saccade. ENT: Moist mucous membranes Neck: Supple, Nontender, No lymphadenopathy Cardiovascular: Regular rate, Regular rhythm Respiratory: No distress, CTA bilaterally Abdomen: Soft, Nontender, Nondistended Back: Nontender, Normal Inspection. Negative for: CVA tenderness Extremities: Nontender, No edema Skin: Normal color, No rash Neurological: Alert, Normal Strength, Normal Sensation. Normal cerebellar. Const Vital Signs: 05/07/23 23:02 05/07/23 23:02 05/07/23 23:27 Temperature 97.3 F L Temperature Source Temporal Pulse Rate 66 61 Respiratory Rate 18 15 Respiratory Effort Normal Respiratory Pattern Normal Blood Pressure 182/78 H 170/76 H Blood Pressure Mean 112 107 Pulse Ox 95 94 Oxygen Delivery Method Room Air Room Air 05/08/23 00:36 Temperature Temperature Source Pulse Rate 80 Respiratory Rate 12 Respiratory Effort Respiratory Pattern Blood Pressure 142/73 H Blood Pressure Mean 96 Pulse Ox 99 Oxygen Delivery Method Room Air MDM MDM MDM Narrative Medical decision making narrative: Is an unremarkable work-up. She is given meclizine and Ativan her symptoms are significantly improved she is now able to ambulate with only minimal vertigo. I do believe she likely has peripheral vertigo, she has had this in the past and has seen ENT for it. CT angiograms normal I do not believe she needs to be admitted for an MRI I do not believe this is central. There is no evidence of infection, there is no evidence of stroke. I talked to her and also given the history and they are okay with the plan of discharge. Lab Data Labs: Laboratory Results - last 24 hr 05/07/23 23:25 WBC 8.9 RBC 4.84 Hgb 14.0 Hct 42.5 MCV 87.8 MCH 28.9 MCHC 32.9 RDW Std Deviation 41.3 RDW Coeff of Ho 12.9 Plt Count 280 MPV 9.7 Immature Gran % (Auto) 0.300 Neut % (Auto) 67.1 Lymph % (Auto) 22.9 Rich % (Auto) 7.8 Eos % (Auto) 1.4 Baso % (Auto) 0.5 Absolute Neuts (auto) 6.0 Absolute Lymphs (auto) 2.03 Nucleated RBC % 0 Sodium 140 Potassium 3.8 Chloride 110 H Carbon Dioxide 27.0 Anion Gap 3 L BUN 15 Creatinine 0.86 Estim Creat Clear Calc 48.06 Est GFR (MDRD) Af Amer 82 Est GFR (MDRD) Non-Af 68 BUN/Creatinine Ratio 17.4 Glucose 113 H Calcium 9.2 Total Bilirubin 0.20 AST 10 L ALT 21 Alkaline Phosphatase 39 L Total Protein 7.7 Albumin 3.7 Globulin 4.0 Albumin/Globulin Ratio 0.9 Radiography Diagnostic Testing: Clinical Impression(s) from Imaging Studies Head/Neck CTA 05/07/23 23:16 IMPRESSION: 1. No acute intracranial abnormality. 2. Mild bilateral periventricular and subcortical white matter chronic small vessel disease with age appropriate cerebral atrophy. 3. Extra-axial calcified mass at the left vertex, most consistent with a meningioma. 4. Normal CTA of the neck and head Electronically Signed: Saurabh Desai MD at 0:38 EDT , EKG shows sinus rhythm with a rate of 59. Normal SC and QTc intervals. No ischemic changes interpreted by emergency doctor Discharge Plan Triage Chief Complaint: Dizziness ED Provider: Jay Hood Dx/Rx/DC Orders Clinical Impression: Vertigo, Nausea Instructions: Vertigo Inner Ear Problems, ED Vertigo, Unspecified Prescriptions: New meclizine 50 mg tablet 50 mg PO BID Qty: 10 0RF No Action Januvia 50 mg tablet 50 mg PO DAILY Culturelle Advanced Regularity 11 billion cell capsule PO DAILY simvastatin 20 MG tablet 20 mg PO QHS Patient Comments: lowers cholesterol esomeprazole magnesium [Nexium] 40 MG capsule 44.6 mg PO QHS Patient Comments: GERD lisinopril 5 MG tablet 5 mg PO DAILY Qty: 30 0RF Patient Comments: blood pressure cholecalciferol (vitamin D3) [Vitamin D3] 1,000 UNIT tablet 2,000 unit PO DAILY Patient Comments: Vitamin -supplement coenzyme Q10 [Co Q-10] 200 MG capsule 200 mg PO DAILY Primary Care Provider: Ortega Sebastian Referrals: Ortega Sebastian DO [Primary Care Provider] - 3-5 Days Disposition Disposition: Home, Self Care
[2023-05-07] MEDS: Meclizine HCl 25 MG Tablet PO (23:24)
[2023-05-07] MEDS: LORazepam 2 MG/ML Syringe 1 MG IV (23:25)
[2023-05-07 23:29] LABS: Absolute Lymphocyte Count 2.03 X10^3/uL (0.83-4.51); Basophil# 0.04 X10^3/uL; Basophil% 0.5 % (0-1); Eosinophil# 0.12 X10^3/uL; Eosinophils% 1.4 % (0-5); Hematocrit 42.5 % (37-47); Lymphocyte # 2.03 X10^3/ul (0.83-4.51); Lymphocyte % 22.9 % (19-41); Mean Corp Hgb Conc 32.9 g/dL (32-36); Mean Corpuscular Hgb 28.9 pg (27.0-32.0); Mean Corpuscular Volume 87.8 fL (81-99); Mean Platelet Vol. 9.7 fl (6.2-12.0); Monocyte# 0.69 X10^3/uL; Monocyte% 7.8 % (0-10); NRBC Flagged by Analyzer 0 % (0-5); Neutrophil # 5.96 X10^3/uL (2.7-7.7); Neutrophil % 67.1 % (47-70); Platelet Count 280 K/mm3 (150-450); RBC Distribution Width CV 12.9 % (11.6-14.6); RBC Distribution Width SD 41.3 fl (35.1-43.9); Red Blood Count 4.84 M/mm3 (4.2-5.4); White Blood Count 8.9 K/mm3 (4.4-11.0)
[2023-05-07 23:53] LABS: ALB/GLOB Ratio 0.9 RATIO (0.9-2.4); AST(SGOT) 10 U/L (15-37); Alanine Aminotransfer ALT/SGPT 21 U/L (13-56); Albumin, Serum 3.7 g/dL (3.2-5.0); Alkaline Phosphatase 39 U/L (45-117); Anion Gap 3 (5-15); BUN 15 mg/dL (7-18); BUN/Creat Ratio 17.4 RATIO (10-20); Calcium,Total 9.2 mg/dL (8.5-10.1); Chloride 110 mmol/L (98-107); Creatinine, Serum 0.86 mg/dL (0.55-1.02); EST Glomerular Filtration Rate 68 mL/min (>60); Est Glom Filt Rate - Afr Amer 82 mL/min (>60); Estimated Creatinine Clearance 48.06 ml/min; Glucose 113 mg/dL (74-106); Potassium 3.8 mmol/L (3.5-5.1); Protein, Total 7.7 g/dL (6.4-8.2); Sodium Level 140 mmol/L (136-145)
[2023-05-08 00:36] VITALS: BP 142/73; PULSE 80; RESP 12; O2SAT 99
[2023-05-08 01:06] VITALS: BP 142/87; PULSE 65; RESP 15; O2SAT 99
== END 2023-05-08 01:07 | disposition home or self-care (01) ==
PROVIDERS: Emergency Provider Emergency Medicine; PCP Preventive Medicine Occupational Medicine; Visit Provider Emergency Medicine
DX: R42 Dizziness and giddiness (principal); R11.0 Nausea; Z87.891 Personal history of nicotine dependence
CPT/HCPCS: 70496; 70498; 80053; 85025; 93005; 96374; 99284; Q9967; A4216

== ENCOUNTER → 2023-05-23 | Outpatient (CLI) | payer MEDICARE, OTHER, SELFPAY ==
[2023-05-27 09:07] LABS: Testosterone, % Free 2.53 % (0.50-2.80); Testosterone, Free 11.26 ng/dL (0.10-0.85); Testosterone, Total 445 ng/dL (3-67)
== END | disposition home or self-care (01) ==
LOC: MTLAB 10:21
PROVIDERS: PCP Preventive Medicine Occupational Medicine; Referring Provider Preventive Medicine Occupational Medicine; Visit Provider Preventive Medicine Occupational Medicine
DX: L68.0 Hirsutism (principal)
CPT/HCPCS: 36415; 84402; 84403

== ENCOUNTER → 2023-09-10 | Outpatient (CLI) | payer MEDICARE, OTHER, SELFPAY ==
--- OUTSIDE RECORDS SUMMARY | 2023-09-10 09:00 | XMS RPT_ITS | CCD ---
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 Name Role Phone LYSSA SEBASTIAN DO Primary Care Physician [phone] Lyssa Sebastian Primary Care Provider [id number] LYSSA SEBASTIAN DO Primary Care Physician [phone] Lyssa Sebastian DO Primary Care Provider [phone] HENRY MILLAN Referring Unavailable JAZ, LYSSA F Primary Care Unavailable RL, RAYMOND F Attending Unavailable JAZ, LYSSA F Primary Care Unavailable PARVEEN ROCHA Attending Unavailable RL, RAYMOND F Referring Unavailable JAZ, LYSSA F Primary Care Unavailable PARVEEN ROCHA Referring Unavailable JAZ, LYSSA F Primary Care Unavailable PARVEEN ROCHA Attending Unavailable JAZ, LYSSA F Primary Care Unavailable JAZ DAVIS LYSSA Primary Care Unavailable LISA IZQUIERDO Attending JAY Mckee Referring Unavailable JAZ, LYSSA F Primary Care Unavailable JAY ROMERO Attending Unavailable JAZ, LYSSA F Primary Care Unavailable JAZ, LYSSA F Primary Care Unavailable JAZ, LYSSA F Primary Care Unavailable JAZ, LYSSA F Primary Care Unavailable VIOLETTA GONZALEZN Referring Unavailable JAZ, LYSSA F Primary Care Unavailable KAUSHIK, MARNIE Referring Unavailable JAZ, LYSSA F Primary Care Unavailable KAUSHIK, MARNIE Referring Unavailable JAZ, LYSSA F Primary Care Unavailable MARNIE GONZALEZ Attending Unavailable Allergies Allergy Classification Reported Allergen(s) Allergy Type Date of Onset Reaction(s) Facility (18 sources) Aspirin; Translations: [aspirin] Drug Allergy 0 Rash [facility] (6 sources) Cetirizine; Translations: [cetirizine] Drug Allergy Unknown [facility] (18 sources) Ciprofloxacin; Translations: [ciprofloxacin] Drug Allergy 8 Anaphylaxis [facility] (9 sources) metFORMIN / sAXagliptin; Translations: [metformin-saxa gliptin] Drug Allergy 3 Itching [facility] (6 sources) Miconazole; Translations: [miconazole topical] Drug Allergy Unknown [facility] (18 sources) Nitroglycerin; Translations: [nitroglycerin] Drug Allergy 3 Anaphylaxis [facility] (10 sources) Promethazine; Translations: [promethazine] Drug Allergy 3 Itching [facility] (6 sources) Propoxyphene; Translations: [propoxyphene] Drug Allergy Unknown [facility] (10 sources) traMADol; Translations: [tramadol] Drug Allergy 8 Itching [facility] (14 sources) valACYclovir; Translations: [valacyclovir] Drug Allergy 3 Mental Status Change, Rash [facility] (6 sources) Insect stings Allergy to substance 1 Anaphylactic shock [facility] (12 sources) Cetirizine; Translations: [CETIRIZINE HCL] Drug Allergy 9 Intolerance [facility] Work Phone: (13 sources) Lemon extract; Translations: [LEMON] Drug Allergy 0 Dyspnea (finding) [facility] Work Phone: (12 sources) metroNIDAZOLE; Translations: [METRONIDAZOLE] Drug Allergy 7 Anaphylaxis [facility] (4 sources) Penicillins; Translations: [PENICILLINS] Propensity to adverse reactions 8 Rash [facility] Work Phone: (12 sources) Propoxyphene; Translations: [PROPOXYPHENE HCL] Drug Allergy 8 Intolerance [facility] Work Phone: [phone] (5 sources) Salicylic Acid; Translations: [SALICYLATES] Drug Allergy 8 [facility] Work Phone: (12 sources) SITagliptin; Translations: [SITAGLIPTIN] Drug Allergy 0 Other: See Comments [facility] (12 sources) tioconazole; Translations: [TIOCONAZOLE] Drug Allergy 8 [facility] Work Phone: (12 sources) Bees; Translations: [BEES] Propensity to adverse reactions 8 Anaphylaxis [facility] Work Phone: (8 sources) Penicillins Propensity to adverse reactions 8 Rash [facility] Work Phone: [phone] (8 sources) Salicylate product Propensity to adverse reactions 8 [facility] Work Phone: (3 sources) Salicylic Acid Drug Allergy 3 Itching [facility] (4 sources) Seasonal allergy; Translations: [SEASONAL ALLERGIES] Allergy to substance 3 Rash [facility] (4 sources) Bee Venom Protein (Honey Bee); Translations: [BEE VENOM PROTEIN (HONEY BEE)] Drug Allergy 3 Anaphylaxis [facility] (1 source) SAXAGLIPTIN-MET FORMIN; Translations: [SAXAGLIPTIN-ME TFORMIN] Propensity to adverse reactions to drug (disorder) 3 [facility] [place] Rep[facility] Medications Current Medications Medication Drug Class(es) Dates Sig (Normalized) Sig (Original) Tylenol (11 sources) Start: 07-05-2022 Tylenol Oral, as needed, 0 Refill(s) Start Date: 07/05/22 Status: Ordered Completed/Discontinued Medications Medication Drug Class(es) Dates Sig (Normalized) Sig (Original) azelastine hydrochloride 0.137 mg/actuat metered dose nasal spray (1 source) Histamine-1 Receptor Antagonist Start: 09-12-2022 End: 10-11-2022 take 2 spray(s) nasal route twice daily azelastine 0.1% nasal spray Use 2 Sprays in each nostril twice daily. 0 09/12/2022 10/11/2022 Discontinued Problems Active Problems Problem Classification Problem Date Documented Date Episodic/Chronic Allergic reactions (6 sources) Allergy to insect venom 08-02-2020 Episodic Anxiety disorders (9 sources) Anxiety; Translations: [Anxiety disorder, unspecified] Onset: 06-12-2023 01-24-2019 Chronic Calculus of urinary tract (3 sources) Kidney stone; Translations: [Calculus of kidney] Onset: 06-12-2023 06-12-2023 Episodic Chronic kidney disease (3 sources) Chronic kidney disease stage 2; Translations: [Chronic kidney disease, stage 2 (mild)] Onset: 06-12-2023 06-12-2023 Chronic Conditions associated with dizziness or vertigo (1 source) Dizziness and giddiness; Translations: [Dizziness and giddiness] Episodic Diabetes mellitus without complication (13 sources) Diabetes mellitus; Translations: [Type 2 diabetes mellitus without complication] Onset: 06-12-2023 01-30-2020 Chronic Disorders of lipid metabolism (9 sources) Hyperlipidemia; Translations: [Hyperlipidemia, unspecified] Onset: 06-12-2023 08-01-2019 Chronic Esophageal disorders (9 sources) Gastroesophageal reflux disease; Translations: [Gastro-esophageal reflux disease without esophagitis] Onset: 06-12-2023 01-24-2019 Chronic Essential hypertension (1 source) Essential hypertension 03-08-2023 Chronic Infective arthritis and osteomyelitis (except that caused by tuberculosis or sexually transmitted disease) (6 sources) 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 Neoplasms of unspecified nature or uncertain behavior (12 sources) Immunosecretory disorder; Translations: [Monoclonal gammopathy] Onset: 06-11-2008 06-11-2008 Chronic Nutritional deficiencies (9 sources) Cobalamin deficiency; Translations: [Deficiency of other specified B group vitamins] Onset: 06-12-2023 01-30-2020 Episodic Osteoarthritis (6 sources) Osteoarthritis 01-24-2019 Chronic Other and unspecified benign neoplasm (6 sources) Benign neoplasm of brain 01-30-2020 Chronic Other and unspecified benign neoplasm (12 sources) Benign neoplasm of meninges; Translations: [Benign neoplasm of meninges, unspecified] Onset: 09-11-2019 09-11-2019 Chronic Other and unspecified benign neoplasm (11 sources) Intracranial meningioma; Translations: [Benign neoplasm of cerebral meninges] Onset: 07-12-2021 07-12-2021 Chronic Other and unspecified benign neoplasm (1 source) Benign neoplasm of cerebral meninges; Translations: [Intracranial meningioma (HCC)] Onset: 07-12-2021 Chronic Other and unspecified benign neoplasm (1 source) Benign neoplasm of meninges, unspecified; Translations: [Benign neoplasm of meninges (HCC)] Onset: 09-11-2019 Chronic Other connective tissue disease (3 sources) History of total knee arthroplasty; Translations: [Presence of unspecified artificial knee joint] Onset: 06-12-2023 06-12-2023 Chronic Other endocrine disorders (4 sources) Increased androgen level; Translations: [Androgen excess] Onset: 01-13-2023 06-12-2023 Chronic Other endocrine disorders (1 source) Increased testosterone level 09-12-2022 Chronic Other endocrine disorders (1 source) Androgen excess; Translations: [Elevated androgen levels] Onset: 06-12-2023 Chronic Other nervous system disorders (1 source) Other chronic pain; Translations: [Chronic midline low back pain, unspecified whether sciatica present] Onset: 01-23-2022 Chronic Other nervous system disorders (9 sources) Abnormal gait; Translations: [Unspecified abnormalities of gait and mobility] Onset: 06-12-2023 01-30-2020 Episodic Other nervous system disorders (1 source) Paresthesia of foot ; Translations: [Anesthesia of skin] Episodic Other nutritional; endocrine; and metabolic disorders (1 source) Obese class II; Translations: [Obesity, unspecified] 06-13-2023 Chronic Other nutritional; endocrine; and metabolic disorders (1 source) Obesity, unspecified; Translations: [Class 2 obesity] Onset: 06-12-2023 Chronic Other skin disorders (1 source) Hirsutism 09-07-2022 Episodic Other upper respiratory disease (1 source) Vasomotor rhinitis 09-07-2022 Chronic Regional enteritis and ulcerative colitis (9 sources) Crohn's disease of small intestine; Translations: [Crohn's disease of small intestine without complications] Onset: 06-12-2023 01-30-2020 Chronic Residual codes; unclassified (1 source) Postmenopausal state 09-07-2022 Episodic Spondylosis; intervertebral disc disorders; other back problems (2 sources) Lumbar spondylosis; Translations: [Spondylosis without myelopathy or radiculopathy, lumbar region] Onset: 01-23-2022 Chronic Spondylosis; intervertebral disc disorders; other back problems (3 sources) Acute low back pain; Translations: [Acute midline low back pain, unspecified whether sciatica present] Episodic Systemic lupus erythematosus and connective tissue disorders (10 sources) Dermatomyositis; 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, unspecified, organ involvement unspecified] Onset: 12-30-2013 12-30-2013 Chronic Unclassified (6 sources) Patient encounter status 01-31-2021 Unclassified (10 sources) Reflux; Translations: [Reflux] Onset: 12-30-2013 12-30-2013 Unclassified (1 source) Chronic midline low back pain, unspecified whether sciatica present; Translations: [Chronic midline low back pain, unspecified whether sciatica present] Onset: 01-23-2022 Unclassified (1 source) Acute midline low back pain, unspecified whether sciatica present; Translations: [Acute midline low back pain, unspecified whether sciatica present] Onset: 12-12-2021 Unclassified (1 source) Adverse reaction to COVID-19 vaccine 06-08-2023 Past or Other Problems Problem Classification Problem Date Documented Da te Episodic/Chronic Other nervous system disorders (1 source) Anesthesia of skin; Translations: [Numbness and tingling of foot] Onset: 01-23-2022 Episodic Other nervous system disorders (1 source) Paresthesia of skin; Translations: [Numbness and tingling of foot] Onset: 01-23-2022 Episodic Sprains and strains (10 sources) Tendon injury - lower limb; Translations: [Strain of unspecified muscle and tendon at ankle and foot level, left foot, initial encounter] Onset: 07-12-2021 07-12-2021 Episodic Results Test Name Value Interpretation Reference Range Facil ity Vital Signs Date Time Vital Sign Value Performing Clinician Gauri perez 06-12-2023 15:24-0500 Body weight 94.94 kg Marnie Gonzalez MD Work Phone: [facility] 06-12-2023 15:24-0500 Diastolic blood pressure 64 mm[Hg] Marnie Gonzalez MD Work Phone: [facility] 06-12-2023 15:24-0500 Heart rate 59 /min Marnie Gonzalez MD Work Phone: [facility] 06-12-2023 15:24-0500 Systolic blood pressure 146 mm[Hg] Marnie Gonzalez MD Work Phone: [facility] 10-11-2022 10:59-0400 Body height 162.6 cm Raymond Chin MD Work Phone: [facility] 10-11-2022 10:59-0400 Body weight 96.3 kg Raymond Chin MD Work Phone: [facility] 10-11-2022 10:59-0400 Diastolic blood pressure 74 mm[Hg] Raymond Chin MD Work Phone: [facility] 10-11-2022 10:59-0400 Heart rate 58 /min Raymond Chin MD Work Phone: [facility] 10-11-2022 10:59-0400 Respiratory rate 18 /min Raymond Chin MD Work Phone: [facility] 10-11-2022 10:59-0400 SaO2% (BldA) [Mass fraction] 95 % Raymond Chin MD Work Phone: [facility] 10-11-2022 10:59-0400 Systolic blood pressure 134 mm[Hg] Raymond Chin MD Work Phone: [facility] 01-23-2022 13:05-0400 Body height 162.6 cm Parveen Rocha PA-C Work Phone: [facility] 01-23-2022 13:05-0400 Body temperature 98.1 [degF] Parveen Rocha PA-C Work Phone: [facility] 01-23-2022 13:05-0400 Body weight 91.1 kg Parveen Rocha PA-C Work Phone: [facility] 01-23-2022 13:05-0400 Diastolic blood pressure 71 mm[Hg] Parveen Rocha PA-C Work Phone: [facility] 01-23-2022 13:05-0400 Heart rate 59 /min Parveen Rocha PA-C Work Phone: [facility] 01-23-2022 13:05-0400 SaO2% (BldA) [Mass fraction] 98 % Parveen Rocha PA-C Work Phone: [facility] 01-23-2022 13:05-0400 Systolic blood pressure 142 mm[Hg] Parveen Rocha PA-C Work Phone: [facility] 12-12-2021 10:11-0400 Body height 162.6 cm Parveen Rocha PA-C Work Phone: [facility] 12-12-2021 10:11-0400 Body weight 87.54 kg Parveen Rocha PA-C Work Phone: [facility] 12-12-2021 10:11-0400 Diastolic blood pressure 84 mm[Hg] Parveen Rocha PA-C Work Phone: [facility] 12-12-2021 10:11-0400 Heart rate 74 /min Parveen Rocha PA-C Work Phone: [facility] 12-12-2021 10:11-0400 SaO2% (BldA) [Mass fraction] 97 % Parveen Rocha PA-C Work Phone: [facility] 12-12-2021 10:11-0400 Systolic blood pressure 150 mm[Hg] Parveen Rocha PA-C Work Phone: [facility] Encounters Encounter Date Encounter Type Care Provider Facility Start: 07-30-2023 Telephone encounter Marnie coreas MD Work Phone: Endocrinology Procedures Date Procedure Procedure Detail Performing Clinician Start: 12-12-2021 Radex spine lumbosac ral minimum 4 views Parveen Rocha PA-C Work Phone: Start: 09-03-2019 Adult depression scr eening assessment Parveen Rocha PA-C Work Phone: Start: 09-06-2014 Arthroplasty of knee 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 Plan of Treatment Date Care Activity Detail Author Start: 01-11-2026 DIABETES SCREEN DIABETES SCREEN [facility] Start: 10-14-2025 Urine microalbumin profile [facility] Start: 07-11-2024 Creatinine measurement Serum Creatinine [facility] Start: 01-12-2024 Serum Creatinine Serum Creatinine [facility] Start: 07-09-2023 Advance Directive Discussion Advance Directive Discussion [facility] Start: 07-09-2023 Depression Assessment Depression Assessment [facility] Start: 03-09-2023 Influenza vaccination [facility] Start: 01-21-2023 End: 03-23-2023 [id number] [Mass/volume] in Serum or Plasma B2 MICROGLOBULIN B Lab Routine Monoclonal paraproteinemia Expected: 01/21/2023, Expires: 03/23/2023 [facility] Work Phone: Immunizations Immunization Date Immunization Notes Care Provider Ike lama 06-06-2023 COVID-19 vaccine, ag e 12+ yr, 2022- season (MODERNA) Marnie Gonzalez MD Work Phone: [facility] Work Phone: 04-27-2022 COVID-19 booster vaccine, age 12+ yr, bivalent (MODERNA) Raymond Chin MD Work Phone: [facility] 04-27-2022 SARS-CoV-2 (CV19)mRNA-[id number] bivalent vac 1 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 [facility] Payers Date Payer Category Payer Private Health Insurance [facility] AARP SUPPLEMENT [id number] 2013-Present [phone] [address] [place] [address] Indemnity [id number] 2013 Private Health Insurance [facility] AARP SUPPLEMENT [id number] 2013-Present [phone] [address] [place] [address] Indemnity [id number] 2013 Unknown [id number] 2011 Medicare MEDICARE MEDICAR E A AND B [id number] 2011-Present [phone] [place] [address] Medicare [id number] 2011 Medicare MEDICARE MEDICAR E A AND B [id number] 2011-Present [phone] [place] [address] Medicare [id number] 2011 Medicare [id number] 1945 Unknown [id number] Social History Date Type Detail Facility Start: 01-31-2021 End: 10-11-2022 Ex-smoker (finding) [facility] Start: 1945 Sex Assigned At Female A [facility] End: 06-08-2014 History of tobacco use Current smoker [facility] End: 06-08-2014 History of tobacco use Cigarette Smoker [facility] Start: 12-30-2014 End: 01-18-2023 Cigarettes smoked current (pack per day) - Reported 1 [facility] Work Phone: Start: 12-30-2014 End: 10-11-2022 Tobacco use and exposure Smokeless tobacco non-user [facility] Start: 12-12-2021 End: 06-12-2023 Alcohol intake Current non-drinker of alcohol (finding) [facility] Start: 1945 Sex Assigned At Not on file [facility] Start: 12-02-2021 End: 01-23-2022 Exposure to SARS-CoV-2 (event) Not sure [facility] Start: 10-11-2022 End: 01-18-2023 Tobacco use panel [facility] Work Phone: Adult Depression Screening Assessment 0 [facility] Work Phone: Start: 07-19-2023 Gender identity Identifies as female gender (finding) [facility] Start: 07-19-2023 Sexual orientation Heterosexual (amanda licea) [facility] Medical Equipment Procedure Code Equipment Code Equipment Origin al Text Equipment Identifier Dates See Instructions , Dispense glucose test strips, #100, use 1 strip as directed daily to test blood sugar. Diagnosis: E 11.9, # 100 EA, 3 Refill(s), Pharmacy: [id number], Diabetes, 163, cm, 06/29/21 13:47:00 EST, Height, 88.4, kg, 06/29/21 1... Start: 09-05-2021 See Instructions , Dispense UltraFine lancets, #100, use 1 lancet as directed daily to test blood sugar. Diagnosis: E 11.9, # 100 EA, 3 Refill(s), Pharmacy: [facility], Diabetes, 163, cm, 06/29/21 13:47:00 EST, Height, 88.4, kg, 06/29/21 13... Start: 09-05-2021 See Instructions , Dispense glucose test strips, #100, use 1 strip as directed daily to test blood sugar. Diagnosis: E 11.9, # 100 EA, 3 Refill(s), Pharmacy: [facility], Diabetes, 163, cm, 06/29/21 13:47:00 EST, Height, 88.4, kg, 06/29/21 1... Start: 09-05-2021 See Instructions , Dispense UltraFine lancets, #100, use 1 lancet as directed daily to test blood sugar. Diagnosis: E 11.9, # 100 EA, 3 Refill(s), Pharmacy: [facility], Diabetes, 163, cm, 06/29/21 13:47:00 EST, Height, 88.4, kg, 06/29/21 13... Start: 09-05-2021 See Instructions , Dispense glucose test strips, #100, use 1 strip as directed daily to test blood sugar. Diagnosis: E 11.9, # 100 EA, 3 Refill(s), Pharmacy: [facility], Diabetes, 164, cm, 03/08/23 14:10:00 EDT, Height, 94.1, kg, 03/08/23 14:10:00 EDT, Dosing Weight Start: 03-21-2023 See Instructions , Dispense UltraFine lancets, #100, use 1 lancet as directed daily to test blood sugar. Diagnosis: E 11.9, # 100 EA, 3 Refill(s), Pharmacy: [place] [id number], Diabetes, 163, cm, 06/29/21 13:47:00 EST, Height, 88.4, kg, 06/29/21 13:47:00 EST, Dosing Weight Start: 09-05-2021 Clinical Notes 12-12-2021 to 07-30-2023 Telephone Encounter - Bell Murrell MA - 07/30/2023 11:03 AM ESTTelephone Encounter - Mary Correa - 06/13/2023 2:12 PM Marnie Del Castillo MD - 06/12/2023 3:32 PM EST Note Date & Type Note Facility 07-30-2023 Miscellaneous Notes Patient would like to know if you could give her the names of the OBGYN that lived closer to her. Bell Murrell Countersinker [employer] [place] [place] [facility] Met[facility] [place] [id number]-X documented in this encounter [facility] 07-11-2023 Note HNO ID: [id number] Author: Tiera Deshpande RT(R) Service: ? Author Type: Right Of Way Clearer Type: Progress Notes Filed: 07/11/2023 3:51 PM Note Text: Radiology Service Progress Note DATE OF SERVICE: July 11, 2023 TIME: 3:51 PM PATIENT IDENTITY VERIFICATION COMPLETED USING TWO (2) STANDARD IDENTIFIERS: Name and Date of confirmed by patient verbally. FALL SCREENING: Has the patient had 2 falls in the last year or 1 fall with injury or currently using an Ambulatory Assistive Device (Walker, Cane, Wheelchair, Crutches, etc.)? No PATIENT GENDER DATA: Female. status: : No status: NO. PATIENT RELEVANT IMPLANT DATA REVIEWED: Yes ALLERGIES: Reviewed and unchanged CONTRAST ALLERGY: NO. EXAM: CT -CONTRAST INDUCED NEPHROPATHY RISK FACTORS: Patient age > 60 years CREATININE: Creatinine Date Value Ref Range Status 07/11/2023 0.84 0.58 - 0.96 mg/dL Final 01/11/2023 0.82 0.58 - 0.96 mg/dL Final 01/22/2020 0.79 0.58 - 0.96 mg/dL Final Estimated Glomerular Filtration Rate Date Value Ref Range Status 07/11/2023 72 >=60 mL/min/1.73m? Final Comment: Estimated Glomerular Filtration Rate (eGFR) is calculated using the 2020 CKD-EPI creatinine equation. This equation utilizes serum creatinine, sex, and age as parameters. The creatinine assay has traceable calibration to isotope dilution-mass spectrometry. Refer to KDIGO guidelines for clinical interpretation. In patients with unstable renal function, e.g. those with acute kidney injury, the eGFR may not accurately reflect actual GFR. eGFR- Date Value Ref Range Status 01/22/2020 >60 Final P.O.C.T. RESULTS: POC done: Yes, See Lab Tab July 11, 2023 TREATMENT: N/A PERIPHERAL IV DATA: Ambulatory: A peripheral IV was started in the Left antecubital site with a Angio cath: 22 gauge. RADIOLOGY DEPARTMENT: CT; Exam(s) Completed: Abdomen/Pelvis SIGNATURE: RT Shabnam(R) PATIENT NAME: [place] DATE: July 11, 2023 TIME: 3:51 PM [facility] 06-13-2023 Miscellaneous Notes Faxed most recent office notes to Dr. Lyssa Sebastian. Successfully transmitted to [phone] Mary Anaya [employer] [place] [id number] documented in this encounter [facility] 06-12-2023 Note HNO ID: [id number] Author: Marnie Gonzalez MD Service: ? Author Type: Physician Type: Progress Notes Filed: 06/13/2023 5:46 AM Note Text: Initial Endocrine Patient Assessment Form Whitney Hills is a 77 year old female here today for an initial endocrine assessment Referred by: Name: Lyssa Sebastian DO Current Outpatient Medications Medication Sig meclizine (ANTIVERT) 25 mg tab pyridoxine, vitamin B6, (VITAMIN B6) 100 mg tablet Take 1 tablet by mouth once daily. Coenzyme Q10 200 mg cap Take 200 mg by mouth once daily. loratadine (CLARITIN) 10 mg tablet Take 10 mg by mouth once daily. iv contrast (will be provided with radiology test) MRI Brain Inject, intravenously, once for 1 dose.No IV access, insert saline lock prior to beginning of sedation, infusion, injection of imaging exam.Discontinue saline lock post exam. If Pt. has a central line or IVAD, may access for administration according to line specific nursing protocol.Once exam is complete flush line and de-access according to line specific nursing protocol in the MR contrast administration guidelines link JANUVIA 100 mg tablet Take 100 mg by mouth once daily. acetaminophen (TYLENOL) 500 mg tablet Take 1,000 mg by mouth as needed. lisinopril 5 mg tablet Take 5 mg by mouth once daily. NEXIUM 40 mg capsule Take 40 mg by mouth once daily. Chromium Picolinate 500 mcg Cap Take 1 capsule by mouth once daily. simvastatin 20 mg ORAL tablet Take 20 mg by mouth daily at bedtime. cholecalciferol (VITAMIN D3) 50 mcg (2,000 unit) tablet Take 1 tablet by mouth as needed. No current facility-administered medications for this visit. PAST MEDICAL HISTORY Diagnosis Date Crohn's DM (diabetes mellitus) (HCC) Hiatal hernia Kidney stone Monoclonal paraproteinemia PAST SURGICAL HISTORY Procedure Laterality Date ARTHROSCOPY KNEE DIAGNOSTIC W/WO SYNOVIAL BX SPX Arthroscopy, knee ARTHRP KNE CONDYLEANDPLATU MEDIALANDLAT COMPARTMENTS 10/01/2014 Left knee TONSILLECTOMY PRIMARY/SECONDARY Tonsillectomy TOTAL ABDOMINAL HYSTERECT W/WO RMVL TUBE OVARY Hysterectomy, PHONG FAMILY HISTORY Problem Relation Age of Onset other (chf) Mother Ischemic Heart Disease Father Excess unwanted body/facial hair Sister Excess unwanted body/facial hair Sister Excess unwanted body/facial hair Maternal Aunt Excess unwanted body/facial hair Daughter Crohn's Disease Daughter History of Present Illness: Noted facial and body hair in the past 5-8 years Review of Systems: GENERAL: Fatigue yes since this summer Weight gained 50 Lb in past 2 years HEAD AND NECK: Headaches No, Visual Complaints No, and Dizziness Yes, vertigo CVS: Negative PULMONARY: Cough first thing in am GI: Diarrhea, Constipation, and Crohn's system: Nocturia Yes. 1-2 times per night Sex / Menstruation / OB Hx: Menstrual History S/P hysterectomy MUSCULOSKEL: arthritis OTHER: Mood changes: yes, Depressed and Anxiety Diaphoresis: Yes, night, Heat intolerance Easy Bruising No FAMILY HISTORY Problem Relation Age of Onset other (chf) Mother Ischemic Heart Disease Father Excess unwanted body/facial hair Sister Excess unwanted body/facial hair Sister Excess unwanted body/facial hair Maternal Aunt Excess unwanted body/facial hair Daughter Crohn's Disease Daughter Social History: Social History Tobacco Use Smoking status: Former Packs/day: 1.00 Years: 50.00 Additional pack years: 0.00 Total pack years: 50.00 Types: Cigarettes Quit date: 06/08/2014 Years since quittin.0 Smokeless tobacco: Never Vaping Use Vaping Use: Never used Substance Use Topics Alcohol use: No Drug use: No Lab Value Units Date High Low TSH No results within date range. T4 No results within date range. FTI No results within date range. T3 No results within date range. FREET3 No results within date range. FREET4 No results within date range. FSH No results within date range. LH No results within date range. TESTFREE No results within date range. TESTOST No results within date range. PROL No results within date range. ALPSUB No results within date range. ILGF1 No results within date range. GH No results within date range. DHEAS No results within date range. ACTH No results within date range. COR0 No results within date range. COR30 No results within date range. COR60 No results within date range. Lab Value Units Date High Low ALT 11 U/L 01/11/2023 38 7 PHYSICAL EXAM BP 146/64 Pulse 59 Wt 209 lb 4.8 oz (94.9kg) Ht 5'4 , BMI 36.42 APPEARANCE: Fairly well appearing, alert, in no acute distress, Obese EYES RONALD, extra occular movements normal NECK Supple, no adenopathy; thyroid symmetric, normal size, no bruits HEART RRR with normal S1 and S2, no murmurs, no gallops, no JVD appreciated LUNGS clear to auscultation ABD bowel sounds normoactive, no bruits, soft, non-tender, non-distended, without or (more content not included)... [facility] 06-12-2023 History of Presen t illness Narrative Initial Endocrine Patient Assessment Form Whitney Hills is a 77 year old female here today for an initial endocrine assessment Referred by: Name: Lyssa CamposDO john Current Outpatient Medications Medication Sig meclizine (ANTIVERT) 25 mg tab pyridoxine, vitamin B6, (VITAMIN B6) 100 mg tablet Take 1 tablet by mouth once daily. Coenzyme Q10 200 mg cap Take 200 mg by mouth once daily. loratadine (CLARITIN) 10 mg tablet Take 10 mg by mouth once daily. iv contrast (will be provided with radiology test) MRI Brain Inject, intravenously, once for 1 dose.No IV access, insert saline lock prior to beginning of sedation, infusion, injection of imaging exam.Discontinue saline lock post exam. If Pt. has a central line or IVAD, may access for administration according to line specific nursing protocol.Once exam is complete flush line and de-access according to line specific nursing protocol in the MR contrast administration guidelines link JANUVIA 100 mg tablet Take 100 mg by mouth once daily. acetaminophen (TYLENOL) 500 mg tablet Take 1,000 mg by mouth as needed. lisinopril 5 mg tablet Take 5 mg by mouth once daily. NEXIUM 40 mg capsule Take 40 mg by mouth once daily. Chromium Picolinate 500 mcg Cap Take 1 capsule by mouth once daily. simvastatin 20 mg ORAL tablet Take 20 mg by mouth daily at bedtime. cholecalciferol (VITAMIN D3) 50 mcg (2,000 unit) tablet Take 1 tablet by mouth as needed. No current facility-administered medications for this visit. PAST MEDICAL HISTORY Diagnosis Date Crohn's DM (diabetes mellitus) (HCC) Hiatal hernia Kidney stone Monoclonal paraproteinemia PAST SURGICAL HISTORY Procedure Laterality Date ARTHROSCOPY KNEE DIAGNOSTIC W/WO SYNOVIAL BX SPX Arthroscopy, knee ARTHRP KNE CONDYLE&PLATU MEDIAL&LAT COMPARTMENTS 10/01/2014 Left knee TONSILLECTOMY PRIMARY/SECONDARY <AGE 13 Tonsillectomy TOTAL ABDOMINAL HYSTERECT W/WO RMVL TUBE OVARY Hysterectomy, PHONG FAMILY HISTORY Problem Relation Age of Onset other (chf) Mother Ischemic Heart Disease Father Excess unwanted body/facial hair Sister Excess unwanted body/facial hair Sister Excess unwanted body/facial hair Maternal Aunt Excess unwanted body/facial hair Daughter Crohn's Disease Daughter History of Present Illness: Noted facial and body hair in the past 5-8 years Review of Systems: GENERAL: Fatigue yes since this summer Weight gained 50 Lb in past 2 years HEAD & NECK: Headaches No, Visual Complaints No, and Dizziness Yes, vertigo CVS: Negative PULMONARY: Cough first thing in am GI: Diarrhea, Constipation, and Crohn's system: Nocturia Yes. 1-2 times per night Sex / Menstruation / OB Hx: Menstrual History S/P hysterectomy MUSCULOSKEL: arthritis OTHER: Mood changes: yes, Depressed and Anxiety Diaphoresis: Yes, night, Heat intolerance Easy Bruising No FAMILY HISTORY Problem Relation Age of Onset other (chf) Mother Ischemic Heart Disease Father Excess unwanted body/facial hair Sister Excess unwanted body/facial hair Sister Excess unwanted body/facial hair Maternal Aunt Excess unwanted body/facial hair Daughter Crohn's Disease Daughter Social History: Social History Tobacco Use Smoking status: Former Packs/day: 1.00 Years: 50.00 Additional pack years: 0.00 Total pack years: 50.00 Types: Cigarettes Quit date: 06/08/2014 Years since quittin.0 Smokeless tobacco: Never Vaping Use Vaping Use: Never used Substance Use Topics Alcohol use: No Drug use: No Lab Value Units Date High Low TSH No results within date range. T4 No results within date range. FTI No results within date range. T3 No results within date range. FREET3 No results within date range. FREET4 No results within date range. FSH No results within date range. LH No results within date range. TESTFREE No results within date range. TESTOST No results within date range. PROL No results within date range. ALPSUB No results within date range. ILGF1 No results within date range. GH No results within date range. DHEAS No results within date range. ACTH No results within date range. COR0 No results within date range. COR30 No results within date range. COR60 No results within date range. Lab Value Units Date High Low ALT 11 U/L 01/11/2023 38 7 PHYSICAL EXAM BP 146/64 Pulse 59 Wt 209 lb 4.8 oz (94.9kg) Ht 5'4 , BMI 36.42 APPEARANCE: Fairly well appearing, alert, in no acute distress, Obese EYES RONALD, extra occular movements normal NECK Supple, no adenopathy; thyroid symmetric, normal size, no bruits HEART RRR with normal S1 and S2, no murmurs, no gallops, no JVD appreciated LUNGS clear to auscultation ABD bowel sounds normoactive, no bruits, soft, non-tender, non-distended, without organomegaly or palpable masses, central adiposity, no tenderness to palpation EXTREMITIES DJD deformities, No skin discoloration, Trace to 1+ edema NEURO Awake, alert and oriented x 3, Reflexes unable to elicit Cranial nerves II-XII grossly intact SKIN Skin color, texture, turgor normal, no suspicious rashes or lesions. Hirsutism male- like on face- celeste white area, chest and abdomen. RELEVENT OUTSIDE LABS: Testosterone 373 (ref 3-67 ng/dL) 01-08-2023 445 05/23/2023 Consult Patient is sent at the request of Lyssa Sebastian DO for my opinion regarding elevated testosterone in a postmenopausal woman. My final recommendations will be communicated back to the requesting physician by way of a copy of today's office notes. ASSESSMENT/PLAN: This 77 yo woman reports a 5-8 year history of hirsutism. She reports having a transvaginal US that was unrevealing but also reports a hysterectomy without oophorectomy at about age 41. Most likely testosterone is of ovarian origin but could be of adrenal origin. This is best addressed with abdominal and pelvic imaging. Recommend Abdominal and Pelvic CT. If no mass identified, pelvic exploration vs selective ovarian and adrenal venous craterization to localize the source of testosterone production. Referral letter for imaging given to the patient which she will get locally. RTN based on findings. Marnie Gonzalez MD Endocrinology Staff CC: Lyssa Sebastian DO documented in this encounter [facility] 01-23-2023 Miscellaneous Notes Left detailed message on identified VM. Leidy Mitchell LPN Can let her know her bone survey was good. No evidence of lytic lesions. Follow-up next year as scheduled. Jay Romero DO documented in this encounter [facility] 01-18-2023 Note HNO ID: [id number] Author: RT Paul(Emeli) Service: ? Author Type: Technologist Type: Progress Notes Filed: 01/18/2023 1:19 PM Note Text: Radiology Service Progress Note PATIENT NAME: Whitney Hills DATE OF SERVICE: January 18, 2023 TIME: 1:18 PM PATIENT IDENTITY VERIFICATION COMPLETED USING TWO (2) IDENTIFIERS: Name and Date of confirmed by patient verbally. FALL SCREENING: Has the patient had 2 falls in the last year or 1 fall with injury or currently using an Ambulatory Assistive Device (Walker, Cane, Wheelchair, Crutches, etc.)? No PATIENT GENDER DATA: Female. status: : No status: NO. PATIENT RELEVANT IMPLANT DATA REVIEWED: Not Applicable RADIOLOGY DEPARTMENT: General X-ray: Exam(s) Completed: Bone Survey PERIPHERAL IV DATA: Not applicable SIGNED BY: RT Paul(R) January 18, 2023 1:18 PM [facility] 01-18-2023 Note HNO ID: [id number] Author: Jay Romero, DO Service: ? Author Type: Physician Type: Progress Notes Filed: 01/18/2023 12:10 PM Note Text: Diagnosis: 1) IgG kappa MGUS. HPI: The patient is a 77 year-old female who has a past medical history significant for Crohn's disease and kidney stones. Her urologist obtained a protein of her urine in order to work up her kidney stones. Because there was a small amount of protein in the urine, a serum protein electrophoresis was performed and it revealed an IgG kappa monoclonal protein. The quantitative immunoglobulins G, A, and M were all within the normal range. The monoclonal protein itself was not quantified. Protein urine electrophoresis showed a total urine protein at 6.2 mg/dl. This was within the normal range of 0 to 15 mg/dl. There was no M-spike noticed in the urine. Did not have bone marrow biopsy. Has had stable low level MP. Presents for annual follow up. Interim history: Endorses today arthritis pain limited to the hands only. Was told from Crohn's. Occasional Crohn's flare. Not on any specific therapy. Denies symptoms of sensory neuropathy. PMH, medications and allergies as below personally reviewed by me today. Any changes documented in appropriate section. ROS: Constitutional: Denies episodes of fever and night sweats. Not significantly fatigued. Normal appetite. Neuro: Denies PHELAN, vertigo and imbalance. HEENT: No recent change in voice, vision or hearing. Resp: Denies cough, wheeze and hemoptysis. No shortness of breath at rest. No JUNIOR. CVS: Denies exertional chest pain and LE edema. GI: No heartburn (takes PPI regularly). : No dysuria or gross hematuria. Endo: No hot flashes. Musculoskeletal: See above. Derm: No rash. Heme: No unusual bleeding or bruising. Psych: Normal mood. PHYSICAL EXAM: Vitals: Blood pressure 153/67, pulse 96, temperature 36.7 ?C (98 ?F), weight 93.9 kg (207 lb). Well-appearing and in no acute distress. EYES: Sclerae are anicteric bilaterally. NECK: Supple. LYMPHATIC: There is no palpable cervical, supraclavicular or axillary adenopathy. RESPIRATORY: Inspiratory breath sounds are of normal intensity in all diaz. No rales, wheezes or rhonchi. CARDIOVASCULAR: Rhythm is regular. Normal intensity S1/S2. There is no gallop or murmur. ABDOMEN: The abdomen is nondistended. Extremities: Free of edema. SKIN: No jaundice or rash. No petechiae. NEUROLOGIC: process chemist II-XII are grossly intact. No focal motor weakness. LABS: Component Latest Ref Rng AND Units 01/11/2023 WBC 3.70 - 11.00 k/uL 7.43 RBC 3.90 - 5.20 m/uL 4.72 Hemoglobin 11.5 - 15.5 g/dL 13.5 Hematocrit 36.0 - 46.0 % 40.5 MCV 80.0 - 100.0 fL 85.8 MCH 26.0 - 34.0 pg 28.6 MCHC 30.5 - 36.0 g/dL 33.3 RDW-CV 11.5 - 15.0 % 12.7 Platelet Count 150 - 400 k/uL 277 MPV 9.0 - 12.7 fL 9.6 Neut% % 76.3 Abs Neut (ANC) 1.45 - 7.50 k/uL 5.67 Lymph% % 14.5 Abs Lymph 1.00 - 4.00 k/uL 1.08 [place]% % 7.3 Abs [place] <0.87 k/uL 0.54 Eosin% % 1.1 Abs Eosin <0.46 k/uL 0.08 Baso% % 0.5 Abs Baso <0.11 k/uL 0.04 Immature Gran % % 0.3 IMMATURE GRANS (ABS) <0.10 k/uL <0.03 NRBC /100 WBC 0.0 Absolute nRBC <0.01 k/uL <0.01 DTYPE Auto Protein, Total 6.3 - 8.0 g/dL 7.4 Albumin 3.9 - 4.9 g/dL 4.3 Calcium 8.5 - 10.2 mg/dL 9.5 Bilirubin, Total 0.2 - 1.3 mg/dL 0.4 Alkaline Phosphatase 34 - 123 U/L 43 AST 13 - 35 U/L 11 (L) ALT 7 - 38 U/L 11 Glucose 74 - 99 mg/dL 133 (H) BUN 7 - 21 mg/dL 11 Creatinine 0.58 - 0.96 mg/dL 0.82 Sodium 136 - 144 mmol/L 138 Potassium 3.7 - 5.1 mmol/L 4.1 Chloride 97 - 105 mmol/L 104 CO2 22 - 30 mmol/L 23 Anion Gap 9 - 18 mmol/L 11 eGFR >=60 mL/min/1.73mA? 74 B2 Microglobulin <3.1 mg/L 2.3 LD 135 - 214 U/L 166 Component Latest Ref Rng AND Units 01/11/2023 Albumin 3.43 - 5.41 g/dL 3.89 Alpha 1 Globulin 0.18 - 0.43 g/dL 0.30 Alpha 2 Globulin 0.42 - 0.98 g/dL 0.77 Beta Globulin 0.61 - 1.17 g/dL 0.78 Gamma Globulin 0.53 - 1.51 g/dL 1.06 Interpretation (Prot Electro) No definitive M protein is identified on protein electrophoresis. An M protein is identified on protein electrophoresis. (A) M-Protein Location Gamma Fraction 1 M-Protein Concentration <=0.00 g/dL 0.39 (H) SPE Staff Review Reviewed by Elliott Wagner MD, Ph.D ([id number]) [place] Free, Serum 3.3 - 19.4 mg/L 40.3 (H) Lambda Free, Serum 5.7 - 26.3 mg/L 28.1 (H) K/L Ratio, Serum 0.26 - 1.65 1.43 IgG 700 - 1,600 mg/dL 1,179 IgA 70 - 400 mg/dL 319 IgM 40 - 230 mg/dL 89 Component Latest Ref Rng AND Units 01/11/2023 MPA Result No M protein is identified. M protein is present. (A) Interpretation (MPA) Atypical restricted bands are present in the IgG and kappa regions. Consistent with IgG kappa monoclonal gammopathy. . . . Staff Review (MPA) Reviewed by Elliott Wagner MD, Ph.D ([id number]) Component Latest Ref Rng AND Units 01/15/2023 Albumin %, 24 Hr Urine % 33.09 Alpha 1 Globulin %, 24 Hr Ur % 3.54 Alpha 2 Gl (more content not included)... [facility] 12-22-2022 Miscellaneous Notes Bone Survey scheduled as patient requested Orders filed. Jay Romero DO Please note appt desk labs 01/11 OV 01/18 Awaiting order for xray for scheduling. Message did not specify type of xray. Please schedule xray right after labs on 01/11 when order entered per patient request. Dr. Romero please sign pending orders. PSS please schedule labs 1 week prior to OV. And can be scheduled anytime in the future. Brittney Pillai LPN Patient called and scheduled appts Please schedule Xray right after lab appt on 01/11 once orders have been entered. Patient aware. 1st attempt. Message left for patient to contact office to schedule - -lab -CBC/CMP/Myeloma labs/24 hr urine M-spike -x-rays -OV w/Dr. Romero 1 week later Please enter xray and lab orders According to last OV AVS CBC/CMP/Myeloma labs/24 hr urine M-spike/x-rays and OV in 1 year. Please schedule. Brittney Pillai LPN Patient called stating she has not been in the office since 01/28/20 due to pandemic. She is asking if a follow up is needed. She states she is not having any issues/concerns at this time. documented in this encounter [facility] 10-11-2022 Note HNO ID: [id number] Author: Raymond Chin MD Service: ? Author Type: Physician Type: Progress Notes Filed: 10/11/2022 11:24 AM Note Text: NEUROSURGERY FOLLOW UP OFFICE NOTE Dr. Raymond Chin MD, FACS Date of visit: October 11, 2022 Patient Name: Ms.Jeanette Hills Date of : 1945 Current Age: [age] year old Sex: female MRN/E# [id number] Last Office Visit: September 06, 2021 Chief Complaint: Patient presents with: Established Patient SUBJECTIVE: The patient presents as a follow-up with imaging (MRI B) for evaluation. This is a 77-year-old female with a PMHx of Crohn's disease, DM, hiatal hernia, monoclonal paraproteinemia and intracranial meningioma. History includes the diagnosis of a left frontoparietal meningioma in the early . This has been nonsurgical in nature since diagnosis. Over the years she has been seen and evaluated with imaging and has overall done well. She was last seen in September 2021 and denied any concerning issues or complaints since her prior visit. Neurologically she was intact on exam without focal deficit. MRI was reviewed and showed no change in the configuration or size of the high parietal parasagittal meningioma. Recommendation was to follow-up in 1 year with repeat imaging prompting her visit today. Since last visit she states she is overall doing well. She denies any new or concerning issues since last visit. She presents for image review, evaluation and plan of care. Symptoms: None PREVIOUS CONSERVATIVE TREATMENTS: None PREVIOUS SURGERY: None PAIN EVALUATION No data found in the last 1 encounters. PAST MEDICAL HISTORY Diagnosis Date Crohn's DM (diabetes mellitus) (HCC) Hiatal hernia Kidney stone Monoclonal paraproteinemia PAST SURGICAL HISTORY Procedure Laterality Date ARTHROSCOPY KNEE DIAGNOSTIC W/WO SYNOVIAL BX SPX Arthroscopy, knee ARTHRP KNE CONDYLEANDPLATU MEDIALANDLAT COMPARTMENTS 10/01/2014 Left knee TONSILLECTOMY PRIMARY/SECONDARY Tonsillectomy TOTAL ABDOMINAL HYSTERECT W/WO RMVL TUBE OVARY Hysterectomy, PHONG No family history on file. ALLERGIES Allergen Reactions Bees Anaphylaxis Ciprofloxacin Anaphylaxis Flagyl [Metronidazo* Anaphylaxis Nitroglycerin Anaphylaxis Salicylates causes her to hyper Zyrtec [Cetirizine * Intolerance unable to sleep,,jittery,felt like would crawl out of skin Aspirin Rash Difficulty sleeping(Reaction happened as a child) Januvia [Sitaglipti* Other: See Comments Taking currently with no problem Lemon Penicillins Rash Propoxyphene Hcl Intolerance Tioconazole Valacyclovir Mental Status Change, Rash Current Outpatient Medications Medication Sig Dispense Refill pyridoxine, vitamin B6, (VITAMIN B6) 100 mg tablet Take 1 tablet by mouth once daily. Coenzyme Q10 200 mg cap Take 200 mg by mouth once daily. loratadine (CLARITIN) 10 mg tablet Take 10 mg by mouth once daily. JANUVIA 100 mg tablet Take 100 mg by mouth once daily. 3 acetaminophen (TYLENOL) 500 mg tablet Take 1,000 mg by mouth as needed. lisinopril 5 mg tablet Take 5 mg by mouth once daily. NEXIUM 40 mg capsule Take 40 mg by mouth once daily. Chromium Picolinate 500 mcg Cap Take 1 capsule by mouth once daily. simvastatin 20 mg ORAL tablet Take 20 mg by mouth daily at bedtime. cholecalciferol (VITAMIN D3) 50 mcg (2,000 unit) tablet Take 1 tablet by mouth as needed. iv contrast (will be provided with radiology test) MRI Brain Inject, intravenously, once for 1 dose.No IV access, insert saline lock prior to beginning of sedation, infusion, injection of imaging exam.Discontinue saline lock post exam. If Pt. has a central line or IVAD, may access for administration according to line specific nursing protocol.Once exam is complete flush line and de-access according to line specific nursing protocol in the MR contrast administration guidelines link 1 Each 0 No current facility-administered medications for this visit. REVIEW OF SYSTEMS Review of Systems Constitutional: Negative for chills, diaphoresis (Negative for night sweats.) and fever. HENT: Negative for ear discharge and rhinorrhea. Eyes: Negative for discharge. Respiratory: Negative for cough, shortness of breath and wheezing. Cardiovascular: Negative for chest pain, palpitations and leg swelling. Gastrointestinal: Negative for constipation, diarrhea, nausea and vomiting. Endocrine: Negative for cold intolerance and heat intolerance. Genitourinary: Negative for frequency. Negative for urinary incontinence and urinary retention. Musculoskeletal: Negative for back pain, joint swelling, myalgias and neck pain. Skin: Negative for rash (Negative for hives and skin lesions.). Allergic/Immunologic: Negative for environmental allergies and food allergies. Negative for contact allergy, seasonal allergies. Neurological: Negative for dizziness, seizures, syncope, weakness, light-headedness, numbness (Negative for n (more content not included)... [facility] 10-11-2022 History of Presen t illness Narrative NEUROSURGERY FOLLOW UP OFFICE NOTE Dr. Raymond Chin MD, FACS Date of visit: October 11, 2022 Patient Name: Ms.Jeanette Hills Date of : 1945 Current Age: [age] year old Sex: female MRN/E# [id number] Last Office Visit: September 06, 2021 Chief Complaint: Patient presents with: Established Patient SUBJECTIVE: The patient presents as a follow-up with imaging (MRI B) for evaluation. This is a 77-year-old female with a PMHx of Crohn's disease, DM, hiatal hernia, monoclonal paraproteinemia and intracranial meningioma. History includes the diagnosis of a left frontoparietal meningioma in the early . This has been nonsurgical in nature since diagnosis. Over the years she has been seen and evaluated with imaging and has overall done well. She was last seen in September 2021 and denied any concerning issues or complaints since her prior visit. Neurologically she was intact on exam without focal deficit. MRI was reviewed and showed no change in the configuration or size of the high parietal parasagittal meningioma. Recommendation was to follow-up in 1 year with repeat imaging prompting her visit today. Since last visit she states she is overall doing well. She denies any new or concerning issues since last visit. She presents for image review, evaluation and plan of care. Symptoms: None PREVIOUS CONSERVATIVE TREATMENTS: None PREVIOUS SURGERY: None PAIN EVALUATION No data found in the last 1 encounters. PAST MEDICAL HISTORY Diagnosis Date Crohn's DM (diabetes mellitus) (HCC) Hiatal hernia Kidney stone Monoclonal paraproteinemia PAST SURGICAL HISTORY Procedure Laterality Date ARTHROSCOPY KNEE DIAGNOSTIC W/WO SYNOVIAL BX SPX Arthroscopy, knee ARTHRP KNE CONDYLE&PLATU MEDIAL&LAT COMPARTMENTS 10/01/2014 Left knee TONSILLECTOMY PRIMARY/SECONDARY <AGE 13 Tonsillectomy TOTAL ABDOMINAL HYSTERECT W/WO RMVL TUBE OVARY Hysterectomy, PHONG No family history on file. ALLERGIES Allergen Reactions Bees Anaphylaxis Ciprofloxacin Anaphylaxis Flagyl [Metronidazo* Anaphylaxis Nitroglycerin Anaphylaxis Salicylates causes her to hyper Zyrtec [Cetirizine * Intolerance unable to sleep,,jittery,felt like would crawl out of skin Aspirin Rash Difficulty sleeping(Reaction happened as a child) Januvia [Sitaglipti* Other: See Comments Taking currently with no problem Lemon Penicillins Rash Propoxyphene Hcl Intolerance Tioconazole Valacyclovir Mental Status Change, Rash Current Outpatient Medications Medication Sig Dispense Refill pyridoxine, vitamin B6, (VITAMIN B6) 100 mg tablet Take 1 tablet by mouth once daily. Coenzyme Q10 200 mg cap Take 200 mg by mouth once daily. loratadine (CLARITIN) 10 mg tablet Take 10 mg by mouth once daily. JANUVIA 100 mg tablet Take 100 mg by mouth once daily. 3 acetaminophen (TYLENOL) 500 mg tablet Take 1,000 mg by mouth as needed. lisinopril 5 mg tablet Take 5 mg by mouth once daily. NEXIUM 40 mg capsule Take 40 mg by mouth once daily. Chromium Picolinate 500 mcg Cap Take 1 capsule by mouth once daily. simvastatin 20 mg ORAL tablet Take 20 mg by mouth daily at bedtime. cholecalciferol (VITAMIN D3) 50 mcg (2,000 unit) tablet Take 1 tablet by mouth as needed. iv contrast (will be provided with radiology test) MRI Brain Inject, intravenously, once for 1 dose.No IV access, insert saline lock prior to beginning of sedation, infusion, injection of imaging exam.Discontinue saline lock post exam. If Pt. has a central line or IVAD, may access for administration according to line specific nursing protocol.Once exam is complete flush line and de-access according to line specific nursing protocol in the MR contrast administration guidelines link 1 Each 0 No current facility-administered medications for this visit. REVIEW OF SYSTEMS Review of Systems Constitutional: Negative for chills, diaphoresis (Negative for night sweats.) and fever. HENT: Negative for ear discharge and rhinorrhea. Eyes: Negative for discharge. Respiratory: Negative for cough, shortness of breath and wheezing. Cardiovascular: Negative for chest pain, palpitations and leg swelling. Gastrointestinal: Negative for constipation, diarrhea, nausea and vomiting. Endocrine: Negative for cold intolerance and heat intolerance. Genitourinary: Negative for frequency. Negative for urinary incontinence and urinary retention. Musculoskeletal: Negative for back pain, joint swelling, myalgias and neck pain. Skin: Negative for rash (Negative for hives and skin lesions.). Allergic/Immunologic: Negative for environmental allergies and food allergies. Negative for contact allergy, seasonal allergies. Neurological: Negative for dizziness, seizures, syncope, weakness, light-headedness, numbness (Negative for numbness in extremities.) and headaches. Hematological: Does not bruise/bleed easily. Psychiatric/Behavioral: The patient is not nervous/anxious. Negative for depression. OBJECTIVE: BP 134/74 Pulse 58 Resp 18 Ht 5' 4 (1.63m) Wt 212 lb 4.9 oz (96.3kg) SpO2 95% BMI 36.42 kg/(m^2). PHYSICAL EXAM: Mental State : Alert, memory function unremarkable. Attention span and concentration normal for patient's age. Speech normal, no receptive or expressive speech deficit. Recent and remote memory normal. Orientation : Oriented to person, place and time. Higher Cortical Function : Intact speech and language. Spontaneous speech and comprehension normal. Fund of knowledge intact for pt level of education. Cranial Nerves : II: No visual field cut no blurring, Makes and sustains eye contact III, IV, : Normal, no double vision or drooping. Pupils equal and reactive to light. Extraocular muscles intact. No nystagmus V: Normal sensation on the face, normal jaw movements VII: No paresis on either side VIII: No gross hearing deficit IX: Good and equal shoulder shrugs XII: Tongue midline, no fasciculations Sensory: Normal Sensation in upper and lower extremities and trunk to touch and noxious stimuli. Motor: Normal muscle tone and bulk. No tremor or uncontrollable movements. No spasticity or tremor. Strength: Upper Extremities : R L Deltoid 5/5 5/5 Biceps 5/5 5/5 Triceps 5/5 5/5 Wrist Ext 5/5 5/5 Wrist Flx 5/5 5/5 Hand Int 5/5 5/5 Lower Extremities : Hip Flexors 5/5 5/5 Hip Extensors 5/5 5/5 Hip Abductors 5/5 5/5 Straight leg Neg Neg Ankle dorsiflex 5/5 5/5 Ankle Plantar 5/5 5/5 Heel Walking intact intact Toe Walking intact intact Reflexes : Biceps 2+ 2+ Triceps 2+ 2+ Wrist 2+ 2+ Patellar 2+ 2+ Achilles 2+ 2+ Marshall's Neg Neg Tinel's Neg Neg Phalen's Neg Neg Cerebellar Function : Normal finger to nose. Normal rapid alternating movements. No ataxia. Negative Romberg. Gait and Station: Normal gait. No assistive device usage. Pulmonary: Lungs without cough, audible wheeze. Respirations unlabored. Cardiac: Regular rate and rhythm. No murmer, gallop or rub. IMAGING: MRI Brain WO/W IVCON performed on 10/02/22 demonstrates: IMPRESSION: Brain MRI shows stability of a 2.1 cm left-sided frontoparietal vertex extra-axial/dural-based enhancing lesion compatible with a meningioma, as well as its mild local mass effect. Mild chronic brain parenchymal changes and other details above. ASSESSMENT/PLAN: 1. Benign neoplasm of meninges (HCC) - ICD9: 225.2, ICD10: D32.9 Patient with a left posterior convexity meningioma that has not changed since the scan of last year. Patient is asymptomatic and has a normal neurological examination. I discussed with the patient and her the fact that there was no change and I did not recommend surgical intervention since we have demonstrated this lesion for several years now without a change so we will see her in 1 year with an MRI scan. Raymond Chin MD Follow Up: Return in about 1 year (around 10/12/2023) for review of MRI. This note was partially generated using [employer] voice recognition system, and there may be some incorrect words, spellings, and punctuation that were not noted in checking the note before saving. documented in this encounter [facility] 10-02-2022 Note HNO ID: [id number] Author: RT Moises(R) Service: ? Author Type: Technologist Type: Progress Notes Filed: 10/02/2022 10:36 AM Note Text: Radiology Service Progress Note DATE OF SERVICE: October 02, 2022 TIME: 10:35 AM PATIENT IDENTITY VERIFICATION COMPLETED USING TWO (2) STANDARD IDENTIFIERS: Name and Date of confirmed by patient verbally. FALL SCREENING: Has the patient had 2 falls in the last year or 1 fall with injury or currently using an Ambulatory Assistive Device (Walker, Cane, Wheelchair, Crutches, etc.)? No PATIENT GENDER DATA: Female. status: : No status: NO. PATIENT RELEVANT IMPLANT DATA REVIEWED: Not Applicable ALLERGIES: Reviewed and unchanged CONTRAST ALLERGY: NO. EXAM: MRI - CONTRAST TYPE: GROUP II PERIPHERAL IV DATA: Ambulatory: A peripheral IV was started in the Right antecubital site with a Butterfly: 25 gauge. RADIOLOGY DEPARTMENT: MR; Exam(s) Completed: Head: Routine Brain SIGNATURE: RT Moises(R) PATIENT NAME: Whitney Hills DATE: October 02, 2022 TIME: 10:35 AM [facility] 10-02-2022 History of Presen t illness Narrative Radiology Service Progress Note DATE OF SERVICE: October 02, 2022 TIME: 10:35 AM PATIENT IDENTITY VERIFICATION COMPLETED USING TWO (2) STANDARD IDENTIFIERS: Name and Date of confirmed by patient verbally. FALL SCREENING: Has the patient had 2 falls in the last year or 1 fall with injury or currently using an Ambulatory Assistive Device (Walker, Cane, Wheelchair, Crutches, etc.)? No PATIENT GENDER DATA: Female. status: : No status: NO. PATIENT RELEVANT IMPLANT DATA REVIEWED: Not Applicable ALLERGIES: Reviewed and unchanged CONTRAST ALLERGY: NO. EXAM: MRI - CONTRAST TYPE: GROUP II PERIPHERAL IV DATA: Ambulatory: A peripheral IV was started in the Right antecubital site with a Butterfly: 25 gauge. RADIOLOGY DEPARTMENT: MR; Exam(s) Completed: Head: Routine Brain SIGNATURE: RT Moises(R) PATIENT NAME: Whitney Hills DATE: October 02, 2022 TIME: 10:35 AM documented in this encounter [facility] 01-23-2022 Note HNO ID: [id number] Author: Parveen Rocha PA-C Service: ? Author Type: Physician [employer] Forming Machine Tender Type: Progress Notes Filed: 01/23/2022 2:01 PM Note Text: NEUROSURGERY FOLLOW UP OFFICE NOTE Parveen Rocha PA-C Date of visit: January 23, 2022 Patient Name: Ms.Jeanette Hills Date of : 1945 Current Age: [age] year old Sex: female MRN/E# [id number] Last Office Visit: 12/12/2021 Chief Complaint: Patient presents with: Established Patient LBP. Rt calf N/T SUBJECTIVE: HPI This is a very pleasant 76-year-old female who presents to the office in follow-up after physical therapy. I saw her in the office 12/12/2021 with main complaint of central low back pain as well as numbness and tingling to the lateral aspect of her right calf. She did therapy in [place] but was a little frustrated as she had a different therapist each time. Some of the exercises that they tried aggravated right hip pain but overall she feels like therapy helped with her right calf numbness and slight improvement of her low back pain. She does tell me that her main issue today is numbness and tingling to the middle 3 toes of her right foot and also feels like she has a ball on the bottom of her foot. She denies any falls or injuries. She does report occasional pain from her foot into her calf but does not have any radicular type pain for me in the office today. Her foot pain does not seem to be any worse with activity. She did get some compression stockings which seem to have helped with her foot pain about 50%. She also feels like rubbing her feet helps with her pain. She denies any numbness and tingling to her left leg or feet.. Symptoms: N/T to rt foot middle 3 toes. PREVIOUS CONSERVATIVE TREATMENTS: Physical therapy Tylenol Ice packs PREVIOUS SURGERY: No prior history of spine surgery PAIN EVALUATION 01/23/2022 1306 Pain Level: 5 Pain Location: Back-Lower Description: Aching;Shooting Duration Units: Months Frequency: Intermittent Intervention/Comfort measure: Medication;Therapeutic techniques-CPRP PAST MEDICAL HISTORY Diagnosis Date - Crohn's - DM (diabetes mellitus) (HCC) - Hiatal hernia - Kidney stone - Monoclonal paraproteinemia PAST SURGICAL HISTORY Procedure Laterality Date - ARTHROSCOPY KNEE DIAGNOSTIC W/WO SYNOVIAL BX SPX Arthroscopy, knee - ARTHRP KNE CONDYLEANDPLATU MEDIALANDLAT COMPARTMENTS 10/01/2014 Left knee - TONSILLECTOMY PRIMARY/SECONDARY Tonsillectomy - TOTAL ABDOMINAL HYSTERECT W/WO RMVL TUBE OVARY Hysterectomy, PHONG Social History Tobacco Use - Smoking status: Former Smoker Packs/day: 1.00 Years: 50.00 Pack years: 50.00 Types: Cigarettes Quit date: 06/08/2014 Years since quittin.6 - Smokeless tobacco: Never Used Vaping Use - Vaping Use: Never used Substance Use Topics - Alcohol use: No - Drug use: No History reviewed. No pertinent family history. ALLERGIES Allergen Reactions - Bees Anaphylaxis - Ciprofloxacin Anaphylaxis - Flagyl [Metronidazo* Anaphylaxis - Nitroglycerin Anaphylaxis - Salicylates causes her to hyper - Zyrtec [Cetirizine * Intolerance unable to sleep,,jittery,felt like would crawl out of skin - Aspirin Rash Difficulty sleeping(Reaction happened as a child) - Januvia [Sitaglipti* Other: See Comments Taking currently with no problem - Lemon - Penicillins Rash - Propoxyphene Hcl Intolerance - Tioconazole Current Outpatient Medications Medication Sig Dispense Refill - JANUVIA 100 mg tablet Take 100 mg by mouth once daily. 3 - acetaminophen (TYLENOL EXTRA STRENGTH) 500 mg tablet Take 1,000 mg by mouth as needed. - lisinopril 5 mg tablet Take 5 mg by mouth once daily. - NEXIUM 40 mg capsule Take 40 mg by mouth once daily. - Chromium Picolinate 500 mcg Cap Take 1 capsule by mouth once daily. - simvastatin 20 mg ORAL tablet Take 20 mg by mouth daily at bedtime. - Cholecalciferol, Vitamin D3, (VITAMIN D-3) 2,000 unit ORAL Tab Take 1 tablet by mouth as needed. - THERAPEUTIC MULTIVITAMIN TAB Take by mouth as needed. 0 - vitamin b complex(B COMPLEX CAP) Take 1 capsule by mouth as needed. 0 - iv contrast (will be provided with radiology test) MRI Brain Inject, intravenously, once for 1 dose.No IV access, insert saline lock prior to beginning of sedation, infusion, injection of imaging exam.Discontinue saline lock post exam. If Pt. has a central line or IVAD, may access for administration according to line specific nursing protocol.Once exam is complete flush line and de-access according to line specific nursing protocol in the MR contrast administration guidelines link (Patient not taking: Reported on 01/23/2022 ) 1 Each 0 No current facility-administered medications for this visit. REVIEW OF SYSTEMS Review of Systems Constitutional: Negative for diaphoresis and fever. Musculoskeletal: Positive for back pain ( Stable chronic central low back pain). Neurological: (more content not included)... [facility] 01-23-2022 History of Presen t illness Narrative NEUROSURGERY FOLLOW UP OFFICE NOTE Parveen Rocha PA-C Date of visit: January 23, 2022 Patient Name: Ms.Jeanette Hills Date of : 1945 Current Age: [age] year old Sex: female MRN/E# [id number] Last Office Visit: 12/12/2021 Chief Complaint: Patient presents with: Established Patient LBP. Rt calf N/T SUBJECTIVE: HPI This is a very pleasant 76-year-old female who presents to the office in follow-up after physical therapy. I saw her in the office 12/12/2021 with main complaint of central low back pain as well as numbness and tingling to the lateral aspect of her right calf. She did therapy in [place] but was a little frustrated as she had a different therapist each time. Some of the exercises that they tried aggravated right hip pain but overall she feels like therapy helped with her right calf numbness and slight improvement of her low back pain. She does tell me that her main issue today is numbness and tingling to the middle 3 toes of her right foot and also feels like she has a ball on the bottom of her foot. She denies any falls or injuries. She does report occasional pain from her foot into her calf but does not have any radicular type pain for me in the office today. Her foot pain does not seem to be any worse with activity. She did get some compression stockings which seem to have helped with her foot pain about 50%. She also feels like rubbing her feet helps with her pain. She denies any numbness and tingling to her left leg or feet.. Symptoms: N/T to rt foot middle 3 toes. PREVIOUS CONSERVATIVE TREATMENTS: Physical therapy Tylenol Ice packs PREVIOUS SURGERY: No prior history of spine surgery PAIN EVALUATION 01/23/2022 1306 Pain Level: 5 Pain Location: Back-Lower Description: Aching;Shooting Duration Units: Months Frequency: Intermittent Intervention/Comfort measure: Medication;Therapeutic techniques-CPRP PAST MEDICAL HISTORY Diagnosis Date Crohn's DM (diabetes mellitus) (HCC) Hiatal hernia Kidney stone Monoclonal paraproteinemia PAST SURGICAL HISTORY Procedure Laterality Date ARTHROSCOPY KNEE DIAGNOSTIC W/WO SYNOVIAL BX SPX Arthroscopy, knee ARTHRP KNE CONDYLE&PLATU MEDIAL&LAT COMPARTMENTS 10/01/2014 Left knee TONSILLECTOMY PRIMARY/SECONDARY <AGE 13 Tonsillectomy TOTAL ABDOMINAL HYSTERECT W/WO RMVL TUBE OVARY Hysterectomy, PHONG Social History Tobacco Use Smoking status: Former Smoker Packs/day: 1.00 Years: 50.00 Pack years: 50.00 Types: Cigarettes Quit date: 06/08/2014 Years since quittin.6 Smokeless tobacco: Never Used Vaping Use Vaping Use: Never used Substance Use Topics Alcohol use: No Drug use: No History reviewed. No pertinent family history. ALLERGIES Allergen Reactions Bees Anaphylaxis Ciprofloxacin Anaphylaxis Flagyl [Metronidazo* Anaphylaxis Nitroglycerin Anaphylaxis Salicylates causes her to hyper Zyrtec [Cetirizine * Intolerance unable to sleep,,jittery,felt like would crawl out of skin Aspirin Rash Difficulty sleeping(Reaction happened as a child) Januvia [Sitaglipti* Other: See Comments Taking currently with no problem Lemon Penicillins Rash Propoxyphene Hcl Intolerance Tioconazole Current Outpatient Medications Medication Sig Dispense Refill JANUVIA 100 mg tablet Take 100 mg by mouth once daily. 3 acetaminophen (TYLENOL EXTRA STRENGTH) 500 mg tablet Take 1,000 mg by mouth as needed. lisinopril 5 mg tablet Take 5 mg by mouth once daily. NEXIUM 40 mg capsule Take 40 mg by mouth once daily. Chromium Picolinate 500 mcg Cap Take 1 capsule by mouth once daily. simvastatin 20 mg ORAL tablet Take 20 mg by mouth daily at bedtime. Cholecalciferol, Vitamin D3, (VITAMIN D-3) 2,000 unit ORAL Tab Take 1 tablet by mouth as needed. THERAPEUTIC MULTIVITAMIN TAB Take by mouth as needed. 0 vitamin b complex(B COMPLEX CAP) Take 1 capsule by mouth as needed. 0 iv contrast (will be provided with radiology test) MRI Brain Inject, intravenously, once for 1 dose.No IV access, insert saline lock prior to beginning of sedation, infusion, injection of imaging exam.Discontinue saline lock post exam. If Pt. has a central line or IVAD, may access for administration according to line specific nursing protocol.Once exam is complete flush line and de-access according to line specific nursing protocol in the MR contrast administration guidelines link (Patient not taking: Reported on 01/23/2022 ) 1 Each 0 No current facility-administered medications for this visit. REVIEW OF SYSTEMS Review of Systems Constitutional: Negative for diaphoresis and fever. Musculoskeletal: Positive for back pain ( Stable chronic central low back pain). Neurological: Positive for numbness ( Numbness and tingling to middle 3 toes to the right foot). Negative for weakness. OBJECTIVE: BP 142/71 Pulse 59 Temp 98.1 Ht 5' 4 (1.63m) Wt 200 lb 13.4 oz (91.1kg) SpO2 98% BMI 34.46 kg/(m^2). Physical Exam Neurological Exam Mental State : Alert, memory function unremarkable. Attention span and concentration Normal for patient's age. Recent and remote memory normal Orientation : Oriented to time place and person Higher Cortical Function : Intact speech and language. Spontaneous speech and comprehension normal. Fund of knowledge intact for pt level of education. Motor : Normal muscle tone and bulk. No tremor or uncontrollable movements No spasticity . Strength: Upper Extremities : R L Deltoid 5 5 Biceps 5 5 Triceps 5 5 Wrist Ext 5 5 Wrist Flx 5 5 Hand Int. 5 5 Lower Extremities : Hip Flexors 5 5 Hip Extensors 5 5 Hip Abductors 5 5 Hip Adductors 5 5 Quads 5 5 Hamstrings 5 5 Ankle dorsiflex 5 5 Ankle plantars 5 5 Heel Walking 5 5 Toe Walking 5 5 Reflexes : Biceps 2 2 Triceps 2 2 Wrist 2 2 Patellar 2 2 Achilles 2 2 Marshall's Neg Neg Plantars Neg Neg Cerebellar Function : Normal finger to nose and rapid alternating movements. No ataxia Gait and Station: Normal Data Review IMAGING STUDIES: X-rays of the lumbar spine from 12/13/2021 show progression of degenerative disc disease at L2-3 and L4-5. No obvious dynamic instability. Personal review of medical records: I reviewed with the patient, history, physical exam, the images and the chart. ASSESSMENT/PLAN: 1. Lumbar spondylosis - ICD9: 721.3, ICD10: M47.816 (primary diagnosis) 2. Numbness and tingling of foot - ICD9: 782.0, ICD10: R20.0, R20.2 3. Chronic midline low back pain, unspecified whether sciatica present - ICD9: 724.2, 338.29, ICD10: M54.50, G89.29 This is a pleasant 76-year-old female comes in with longstanding central low back pain. I previously saw her in the office with central low back pain and numbness and tingling to her right calf. Treated her conservatively with physical therapy. She has noticed improvement in right calf numbness but comes in today with complaint of numbness and tingling to the middle 3 toes of her right foot and a sensation of a ball in the middle of her foot. This has been ongoing for the past couple of months without progression or noticeable weakness. She obtained some compression socks which seems to help and massage seems to help as well. Her symptoms at this point do not sound radicular. She did seem frustrated at lack of answers. I offered her a lumbar spine MRI as well as a right lower extremity EMG study which she was originally agreeable to but then later changed her mind and wanted to hold off for now. I think either approach is reasonable although she does not sound like she requires any surgical intervention. She will follow-up with her family physician to see if they have any input as well. Parveen Rocha PA-C documented in this encounter [facility] 12-12-2021 Note HNO ID: [id number] Author: Parveen Rocha PA-C Service: ? Author Type: Physician [employer] Forming Machine Tender Type: Progress Notes Filed: 12/12/2021 10:52 AM Note Text: NEUROSURGERY FOLLOW UP OFFICE NOTE Parveen Rocha PA-C Date of visit: December 12, 2021 Patient Name: Ms.Jeanette Hills Date of : 1945 Current Age: [age] year old Sex: female MRN/E# [id number] Last Office Visit: 09/06/2021 Chief Complaint: Patient presents with: Established Patient LBP N/T rt leg SUBJECTIVE: HPI This is a very pleasant 76-year-old female with known history of diabetes, Crohn's, GERD, remote tobacco abuse, hammertoe. She has followed in our office by Dr. Chin for ongoing surveillance of high right parietal meningioma without recent change. She comes into the office today with a complaint of central low back pain over the past 2 months and numbness and tingling to the lateral aspect of her right calf into the bottom of her foot. She denies any shooting pain down her legs. She does occasionally have shooting pain from the medial aspect of her right leg into her groin but denies symptoms consistent with this at this time. No sensory changes on the left. She denies any recent fall, injury, fever, chills or weight loss. She has been using ice packs and Tylenol which seemed to help a little. 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 She denies change in bowel or bladder function. She has prior x-rays of the lumbar spine which showed mild degenerative changes without obvious dynamic instability. Symptoms: Central low back pain x2 months Numbness and tingling to lateral right calf and bottom of foot x2 months PREVIOUS CONSERVATIVE TREATMENTS: Tylenol Ice packs PREVIOUS SURGERY: No prior history of spine surgery PAIN EVALUATION 12/12/2021 1009 Pain Level: 8 Pain Location: Back-Lower R leg Description: Tingling;Aching;Dull;Radiating Duration Units: Years Frequency: Intermittent Intervention/Comfort measure: Exercise;Other: See comment stretching PAST MEDICAL HISTORY Diagnosis Date - Crohn's - DM (diabetes mellitus) (HCC) - Hiatal hernia - Kidney stone - Monoclonal paraproteinemia PAST SURGICAL HISTORY Procedure Laterality Date - ARTHROSCOPY KNEE DIAGNOSTIC W/WO SYNOVIAL BX SPX Arthroscopy, knee - ARTHRP KNE CONDYLEANDPLATU MEDIALANDLAT COMPARTMENTS 10/01/2014 Left knee - TONSILLECTOMY PRIMARY/SECONDARY Tonsillectomy - TOTAL ABDOMINAL HYSTERECT W/WO RMVL TUBE OVARY Hysterectomy, PHONG Social History Tobacco Use - Smoking status: Former Smoker Packs/day: 1.00 Years: 50.00 Pack years: 50.00 Types: Cigarettes Quit date: 06/08/2014 Years since quittin.5 - Smokeless tobacco: Never Used Vaping Use - Vaping Use: Never used Substance Use Topics - Alcohol use: No - Drug use: No History reviewed. No pertinent family history. ALLERGIES Allergen Reactions - Bees Anaphylaxis - Ciprofloxacin Anaphylaxis - Flagyl [Metronidazo* Anaphylaxis - Nitroglycerin Anaphylaxis - Salicylates causes her to hyper - Zyrtec [Cetirizine * Intolerance unable to sleep,,jittery,felt like would crawl out of skin - Aspirin Rash Difficulty sleeping(Reaction happened as a child) - Januvia [Sitaglipti* Other: See Comments Taking currently with no problem - Lemon - Penicillins Rash - Propoxyphene Hcl Intolerance - Tioconazole Current Outpatient Medications Medication Sig Dispense Refill - iv contrast (will be provided with radiology test) MRI Brain Inject, intravenously, once for 1 dose.No IV access, insert saline lock prior to beginning of sedation, infusion, injection of imaging exam.Discontinue saline lock post exam. If Pt. has a central line or IVAD, may access for administration according to line specific nursing protocol.Once exam is complete flush line and de-access according to line specific nursing protocol in the MR contrast administration guidelines link 1 Each 0 - JANUVIA 100 mg tablet Take 100 mg by mouth once daily. 3 - acetaminophen (TYLENOL EXTRA STRENGTH) 500 mg tablet Take 1,000 mg by mouth as needed. - lisinopril 5 mg tablet Take 5 mg by mouth once daily. - NEXIUM 40 mg capsule Take 40 mg by mouth once daily. - Chromium Picolinate 500 mcg Cap Take 1 capsule by mouth once daily. - simvastatin 20 mg ORAL tablet Take 20 mg by mouth daily at bedtime. - Cholecalciferol, Vitamin D3, (VITAMIN D-3) 2,000 unit ORAL Tab Take 1 tablet by mouth as needed. - THERAPEUTIC MULTIVITAMIN TAB Take by mouth as needed. 0 - vitamin b complex(B COMPLEX CAP) Take 1 capsule by mouth as needed. 0 No current facility-administered medications for this visit. REVIEW OF SYSTEMS Review of Systems Constitutional: Negative for activity change, chills, diaphoresis, fever and unexpected weight change. HENT: Negative for congestion. Respiratory: Negative for apnea. Cardiovascular: Negative for chest pain (more content not included)... [facility] 12-12-2021 History of Presen t illness Narrative Images from the original note were not included. NEUROSURGERY FOLLOW UP OFFICE NOTE Parveen Rocha PA-C Date of visit: December 12, 2021 Patient Name: Ms.Jeanette Hills Date of : 1945 Current Age: [age] year old Sex: female MRN/E# [id number] Last Office Visit: 09/06/2021 Chief Complaint: Patient presents with: Established Patient LBP N/T rt leg SUBJECTIVE: HPI This is a very pleasant 76-year-old female with known history of diabetes, Crohn's, GERD, remote tobacco abuse, hammertoe. She has followed in our office by Dr. Chin for ongoing surveillance of high right parietal meningioma without recent change. She comes into the office today with a complaint of central low back pain over the past 2 months and numbness and tingling to the lateral aspect of her right calf into the bottom of her foot. She denies any shooting pain down her legs. She does occasionally have shooting pain from the medial aspect of her right leg into her groin but denies symptoms consistent with this at this time. No sensory changes on the left. She denies any recent fall, injury, fever, chills or weight loss. She has been using ice packs and Tylenol which seemed to help a little. 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 She denies change in bowel or bladder function. She has prior x-rays of the lumbar spine which showed mild degenerative changes without obvious dynamic instability. Symptoms: Central low back pain x2 months Numbness and tingling to lateral right calf and bottom of foot x2 months PREVIOUS CONSERVATIVE TREATMENTS: Tylenol Ice packs PREVIOUS SURGERY: No prior history of spine surgery PAIN EVALUATION 12/12/2021 1009 Pain Level: 8 Pain Location: Back-Lower R leg Description: Tingling;Aching;Dull;Radiating Duration Units: Years Frequency: Intermittent Intervention/Comfort measure: Exercise;Other: See comment stretching PAST MEDICAL HISTORY Diagnosis Date Crohn's DM (diabetes mellitus) (HCC) Hiatal hernia Kidney stone Monoclonal paraproteinemia PAST SURGICAL HISTORY Procedure Laterality Date ARTHROSCOPY KNEE DIAGNOSTIC W/WO SYNOVIAL BX SPX Arthroscopy, knee ARTHRP KNE CONDYLE&PLATU MEDIAL&LAT COMPARTMENTS 10/01/2014 Left knee TONSILLECTOMY PRIMARY/SECONDARY <AGE 13 Tonsillectomy TOTAL ABDOMINAL HYSTERECT W/WO RMVL TUBE OVARY Hysterectomy, PHONG Social History Tobacco Use Smoking status: Former Smoker Packs/day: 1.00 Years: 50.00 Pack years: 50.00 Types: Cigarettes Quit date: 06/08/2014 Years since quittin.5 Smokeless tobacco: Never Used Vaping Use Vaping Use: Never used Substance Use Topics Alcohol use: No Drug use: No History reviewed. No pertinent family history. ALLERGIES Allergen Reactions Bees Anaphylaxis Ciprofloxacin Anaphylaxis Flagyl [Metronidazo* Anaphylaxis Nitroglycerin Anaphylaxis Salicylates causes her to hyper Zyrtec [Cetirizine * Intolerance unable to sleep,,jittery,felt like would crawl out of skin Aspirin Rash Difficulty sleeping(Reaction happened as a child) Januvia [Sitaglipti* Other: See Comments Taking currently with no problem Lemon Penicillins Rash Propoxyphene Hcl Intolerance Tioconazole Current Outpatient Medications Medication Sig Dispense Refill iv contrast (will be provided with radiology test) MRI Brain Inject, intravenously, once for 1 dose.No IV access, insert saline lock prior to beginning of sedation, infusion, injection of imaging exam.Discontinue saline lock post exam. If Pt. has a central line or IVAD, may access for administration according to line specific nursing protocol.Once exam is complete flush line and de-access according to line specific nursing protocol in the MR contrast administration guidelines link 1 Each 0 JANUVIA 100 mg tablet Take 100 mg by mouth once daily. 3 acetaminophen (TYLENOL EXTRA STRENGTH) 500 mg tablet Take 1,000 mg by mouth as needed. lisinopril 5 mg tablet Take 5 mg by mouth once daily. NEXIUM 40 mg capsule Take 40 mg by mouth once daily. Chromium Picolinate 500 mcg Cap Take 1 capsule by mouth once daily. simvastatin 20 mg ORAL tablet Take 20 mg by mouth daily at bedtime. Cholecalciferol, Vitamin D3, (VITAMIN D-3) 2,000 unit ORAL Tab Take 1 tablet by mouth as needed. THERAPEUTIC MULTIVITAMIN TAB Take by mouth as needed. 0 vitamin b complex(B COMPLEX CAP) Take 1 capsule by mouth as needed. 0 No current facility-administered medications for this visit. REVIEW OF SYSTEMS Review of Systems Constitutional: Negative for activity change, chills, diaphoresis, fever and unexpected weight change. HENT: Negative for congestion. Respiratory: Negative for apnea. Cardiovascular: Negative for chest pain. Gastrointestinal: Negative for abdominal distention. Genitourinary: Negative for difficulty urinating. Musculoskeletal: Positive for back pain ( Central low back pain x2 months without inciting event). Neurological: Positive for numbness ( Paresthesias to right lateral calf and bottom of foot.). Negative for weakness. OBJECTIVE: BP 150/84 Pulse 74 Ht 5' 4 (1.63m) Wt 193 lb (87.5kg) SpO2 97% BMI 33.11 kg/(m^2). Physical Exam Neurological Exam Mental State : Alert, memory function unremarkable. Attention span and concentration Normal for patient's age. Recent and remote memory normal Orientation : Oriented to time place and person Higher Cortical Function : Intact speech and language. Spontaneous speech and comprehension normal. Fund of knowledge intact for pt level of education. Cranial Nerves : II: No visual field cut no blurring. Makes and sustains eye contact III, IV, normal, no double vision or drooping. Pupils equal and reactive to light. Extraocular muscles intact. No nystagmus V Normal sensation on the face, normal jaw movements VII No paresis on either side. VIII No gross hearing deficit IX Normal palatal movements XI Good and equal shoulder shrus XII Tongue midline, no fasciculation Sensory : Normal Sensation in upper and lower extremities and trunk to touch and Noxious stimuli. Motor : Normal muscle tone and bulk. No tremor or uncontrollable movements No spasticity . Strength: Upper Extremities : R L Deltoid 5 5 Biceps 5 5 Triceps 5 5 Wrist Ext 5 5 Wrist Flx 5 5 Hand Int. 5 5 Lower Extremities : Hip Flexors 5 5 Hip Extensors 5 5 Hip Abductors 5 5 Hip Adductors 5 5 Quads 5 5 Hamstrings 5 5 Ankle dorsiflex 5 5 Ankle plantars 5 5 Reflexes : Biceps 2 2 Triceps 2 2 Wrist 2 2 Patellar 2 2 Achilles 2 2 Marshall's Neg Neg Plantars Neg Neg Gait and Station: Normal Data Review IMAGING STUDIES: X-rays of the lumbar spine with flexion-extension from 09/11/2019 shows mild degenerative changes without dynamic instability. MRI of the lumbar spine from 2013 showed minimal degenerative changes from L4-S1. Personal review of medical records: I reviewed with the patient, history, physical exam, the images and the chart. ASSESSMENT/PLAN: 1. Acute midline low back pain, unspecified whether sciatica present - ICD9: 724.2, ICD10: M54.50 - CONSULT TO PHYSICAL THERAPY (AG) - XR LUMBAR MOTION 4V AP/LAT/ FLEX/EXT This is a very pleasant 76-year-old female comes in with a 2-month history of central low back pain and sensory changes to right lateral calf and bottom of her right foot. On exam she has full motor strength throughout. No sensory deficits on my exam. She has x-rays of the lumbar spine from 2 years ago with flexion-extension views that showed mild degenerative changes without instability. I have recommended repeating a lumbar spine x-rays with flexion-extension views which she is agreeable to. I have also recommended referral to physical therapy which she is in agreement with as well. I will see her back in the office 6 weeks after she starts therapy to evaluate her progress. I have asked her to call us with any new or worsening symptoms. She will continue to use Tylenol [id number] not to exceed 3000 mg daily and continue to use ice which seems to be helpful. Parveen Rocha PA-C documented in this encounter [facility] Evaluation + Plan note Future Appointments Appointment Date:06/01/2021 01:30:00 PM Scheduled Provider: [facility] Appointment Type:PC Nurse Injection Appointment Date:07/13/2021 01:30:00 PM Scheduled Provider:SHERITA TERAN [facility] Appointment Type:PC OV Appointment Date:08/02/2021 01:45:00 PM Scheduled Provider:LYSSA SEBASTIAN DO Location:[facility] Appointment Type:PC OV Follow Up [facility] Evaluation + Plan note Future Appointments Appointment Date:06/29/2021 01:45:00 PM Scheduled Provider:LYSSA SEBASTIAN DO Location:[facility] Appointment Type:PC OV Appointment Date:07/13/2021 01:30:00 PM Scheduled Provider:SHERITA TERAN [facility] Appointment Type:PC OV Appointment Date:07/20/2021 01:30:00 PM Scheduled Provider: [facility] Appointment Type:PC Nurse Injection Appointment Date:08/02/2021 01:45:00 PM Scheduled Provider:LYSSA SEBASTIAN DO Location:[facility] Appointment Type:PC OV Follow Up [facility] Evaluation + Plan note Future Appointments Appointment Date:08/31/2021 01:30:00 PM Scheduled Provider: Location:[facility] Appointment Type:PC Nurse Injection Appointment Date:10/04/2021 02:15:00 PM Scheduled Provider:LYSSA SEBASTIAN DO Location:[facility] Appointment Type:PC OV Follow Up Appointment Date:12/28/2021 01:00:00 PM Scheduled Provider: Location:[facility] Appointment Type:DB Diabetic Individual Visit [facility] Evaluation + Plan note Future Appointments Appointment Date:10/19/2021 01:30:00 PM Scheduled Provider: Location:[facility] Appointment Type:PC Nurse Injection Appointment Date:12/28/2021 01:00:00 PM Scheduled Provider: Location:[facility] Appointment Type:DB Diabetic Individual Visit Appointment Date:04/07/2022 02:15:00 PM Scheduled Provider:LYSSA SEBASTIAN DO Location:[facility] Appointment Type:PC OV Follow Up [facility] Evaluation + Plan note Future Appointments Appointment Date:05/04/2022 02:15:00 PM Scheduled Provider: Location:[facility] Appointment Type:PC Nurse Injection Appointment Date:05/25/2022 02:15:00 PM Scheduled Provider: Location:[facility] Appointment Type:PC Nurse Injection Appointment Date:10/05/2022 02:00:00 PM Scheduled Provider:LYSSA SEBASTIAN DO Location:[facility] Appointment Type:PC OV [facility] Evaluation + Plan note Future Appointments Appointment Date:08/30/2023 02:15:00 PM Scheduled Provider: Location:[facility] Appointment Type:PC Nurse Injection Appointment Date:09/06/2023 02:00:00 PM Scheduled Provider:LYSSA SEBASTIAN DO Location:[facility] Appointment Type:PC OV [facility] documented in this encounter [facility] note* Diagnosis Acute midline low back pain, unspecified whether sciatica present documented in this encounter [facility] note* Diagnosis Lumbar spondylosis- Primary Lumbosacral spondylosis without myelopathy Numbness and tingling of foot Disturbance of skin sensation Chronic midline low back pain, unspecified whether sciatica present [facility] Diagnosis Intracranial meningioma (HCC) Benign neoplasm of cerebral meninges Benign neoplasm of meninges (HCC) Benign neoplasm of cerebral meninges documented in this encounter [facility] note* Diagnosis Benign neoplasm of meninges (HCC)- Primary Benign neoplasm of cerebral meninges documented in this encounter [facility] note* Diagnosis Monoclonal paraproteinemia- Primary documented in this encounter [facility] note* Diagnosis Elevated androgen levels- Primary Other nonspecific finding on examination of urine Class 2 obesity Diabetes mellitus without complication (HCC) Type II or unspecified type diabetes mellitus without mention of complication, not stated as uncontrolled documented in this encounter [facility] course Narrative No data available for this section [facility] Hospital Discharge instructions No data available for this section [facility] Progress note No data available for this section [facility] Reason for referral (narrative)* Diagnostic Procedure Only (Routine) - Closed Specialty Diagnoses / Procedures Referred By Contac t Referred To Contact XR IMAGING Diagnoses Acute midline low back pain, unspecified whether sciatica present Procedures XR LUMBAR MOTION 4V AP/LAT/ FLEX/EXT RADEX SPINE LUMBOSACRAL MINIMUM 4 VIEWS Parveen Rocha PA-C [address] [facility] [address] [address] Xr Imaging Referral ID Status Reason Start Date Expiration Date V isits Requested Visits Authorized [id number] Closed Auto-Generate d Referral 12/12/2021 01/11/2023 1 1 * Transition of Care (Routine) - Ref Not Required Specialty Diagnoses / Procedures Referred By Contac t Referred To Contact Diagnoses Acute midline low back pain, unspecified whether sciatica present Procedures CONSULT TO PHYSICAL THERAPY (AG) Parveen Rocha PA-C [address] [facility] [address] Referral ID Status Reason Start Date Expiration Date Visits Requested Visits Authorized [id number] Ref Not Required PCP Requested Referral 12/12/2021 03/12/2022 1 1 [facility] for referral (narrative)* Diagnostic Procedure Only (Routine) - Closed Specialty Diagnoses / Procedures Referred By Contac t Referred To Contact XR IMAGING Diagnoses Acute midline low back pain, unspecified whether sciatica present Procedures XR LUMBAR MOTION 4V AP/LAT/ FLEX/EXT RADEX SPINE LUMBOSACRAL MINIMUM 4 VIEWS Parveen Rocha PA-C [address] [place] [address] Xr Imaging Referral ID Status Reason Start Date Expiration Date V isits Requested Visits Authorized [id number] Closed Auto-Generate d Referral 12/12/2021 01/11/2023 1 1 [facility] for referral (narrative)* Diagnostic Procedure Only (Routine) - Authorized Specialty Diagnoses / Procedures Referred By Contac t Referred To Contact XR IMAGING Diagnoses Monoclonal paraproteinemia Procedures XR BONE SURVEY ROUTINE RADIOLOGIC EXAMINATION OSSEOUS SURVEY COMPL Jay Romero DO [address] [place] [address] Xr Imaging Referral ID Status Reason Start Date Expiration Date Visits Requested Visits Authorized [id number] Authorized Auto-Generat ed Referral 12/22/2022 01/21/2024 1 1 [facility] for visit Narrative* Diagnostic Procedure Only (Routine) - Closed Specialty Diagnoses / Procedures Referred By Contac t Referred To Contact XR IMAGING Diagnoses Acute midline low back pain, unspecified whether sciatica present Procedures XR LUMBAR MOTION 4V AP/LAT/ FLEX/EXT RADEX SPINE LUMBOSACRAL MINIMUM 4 VIEWS Parveen Rocha PA-C [address] [place] [address] Xr Imaging Referral ID Status Reason Start Date Expiration Date V isits Requested Visits Authorized [id number] Closed Auto-Generate d Referral 12/12/2021 01/11/2023 1 1 [facility] Summary Purpose Family History No Family History Records FoundNo Family History Records Found No data available for this section No Family History Records FoundNo Family History Records Found Advance Directives No Advanced Directives Records FoundNo Advanced Directives Records FoundNo Advanced Directives Records FoundNo Advanced Directives Records Found Reason for Referral Specialty Diagnoses / Procedures Referred By Contac t Referred To Contact MR IMAGING Diagnoses Intracranial meningioma (HCC) Benign neoplasm of meninges (HCC) Procedures MRI BRAIN WO/W IVCON MRI BRAIN BRAIN STEM W/O W/CONTRAST MATERIAL Henry Millan, ULTRASONOGRAPHER.INVESTIGATIVE REPORTER [address] [place] [address] Mr Imaging Referral ID Status Reason Start Date Expiration Date V isits Requested Visits Authorized [id number] Closed Auto-Generate d Referral 09/06/2021 10/06/2022 1 1 Additional Source Comments INFORMATION SOURCE (unrecogn ized section and content) DATE CREATED AUTHOR AUTHOR'S ORGANIZ ATION 10/14/2022 [facility] DATE CREATED AUTHOR AUTHOR'S ORGANIZ ATION 07/20/2023 [facility] ([place]) DATE CREATED AUTHOR AUTHOR'S ORGANIZ ATION 08/17/2023 [facility] Care Team (unrecognized sect ion and content) 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 Relationship Specialty Start Date End Date Lyssa Sebastian PCP - General Family Practice 01/01/12 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 Relationship Specialty Start Date End Date Lyssa Sebastian PCP - General Family Practice 01/01/12 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 Relationship Specialty Start Date End Date Lyssa Sebastian DO PCP - General Family Medicine 01/01/12 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 Relationship Specialty Start Date End Date Lyssa Sebastian DO PCP - General Family Medicine 01/01/12 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 Relationship Specialty Start Date End Date Lyssa Sebastian DO PCP - General Family Medicine 01/01/12 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 Relationship Specialty Start Date End Date Lyssa Sebastian DO PCP - General Family Medicine 01/01/12 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 Relationship Specialty Start Date End Date Lyssa Sebastian DO PCP - General Family Medicine 01/01/12 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 Relationship Specialty Start Date End Date Lyssa Sebastian DO PCP - General Family Medicine 01/01/12 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 Relationship Specialty Start Date End Date Lyssa Sebastian DO PCP - General Family Medicine 01/01/12 Source Comments (unrecognize d section and content) In the event this informatio n is protected by the Federal Confidentiality of Alcohol and Drug Abuse Patient Records regulations: The Federal rules restrict any use of the information to criminally investigate or prosecute any alcohol or drug abuse patient.[facility] the event this information is protected by the Federal Confidentiality of Alcohol and Drug Abuse Patient Records regulations: The Federal rules restrict any use of the information to criminally investigate or prosecute any alcohol or drug abuse patient.[facility] the event this information is protected by the Federal Confidentiality of Alcohol and Drug Abuse Patient Records regulations: The Federal rules restrict any use of the information to criminally investigate or prosecute any alcohol or drug abuse patient.[facility] the event this information is protected by the Federal Confidentiality of Alcohol and Drug Abuse Patient Records regulations: The Federal rules restrict any use of the information to criminally investigate or prosecute any alcohol or drug abuse patient.[facility] the event this information is protected by the Federal Confidentiality of Alcohol and Drug Abuse Patient Records regulations: The Federal rules restrict any use of the information to criminally investigate or prosecute any alcohol or drug abuse patient.[facility] the event this information is protected by the Federal Confidentiality of Alcohol and Drug Abuse Patient Records regulations: The Federal rules restrict any use of the information to criminally investigate or prosecute any alcohol or drug abuse patient.[facility] the event this information is protected by the Federal Confidentiality of Alcohol and Drug Abuse Patient Records regulations: The Federal rules restrict any use of the information to criminally investigate or prosecute any alcohol or drug abuse patient.[facility] the event this information is protected by the Federal Confidentiality of Alcohol and Drug Abuse Patient Records regulations: The Federal rules restrict any use of the information to criminally investigate or prosecute any alcohol or drug abuse patient.[facility] the event this information is protected by the Federal Confidentiality of Alcohol and Drug Abuse Patient Records regulations: The Federal rules restrict any use of the information to criminally investigate or prosecute any alcohol or drug abuse patient.[facility] the event this information is protected by the Federal Confidentiality of Alcohol and Drug Abuse Patient Records regulations: The Federal rules restrict any use of the information to criminally investigate or prosecute any alcohol or drug abuse patient.[facility] Reason for Visit (unrecogniz ed section and content) Reason Comments Established Patient Specialty Diagnoses / Procedures Referred By Contac t Referred To Contact MR IMAGING Diagnoses Intracranial meningioma (HCC) Benign neoplasm of meninges (HCC) Procedures MRI BRAIN WO/W IVCON MRI BRAIN BRAIN STEM W/O W/CONTRAST MATERIAL Henry Millan APRN.INVESTIGATIVE REPORTER [address] [place] [address] Mr Imaging Referral ID Status Reason Start Date Expiration Date V isits Requested Visits Authorized [id number] Closed Auto-Generate d Referral 09/06/2021 10/06/2022 1 1 Reason Comments Patient Question Reason Comments Results Reason Comments Consult Reason Comments Office Notes Reason Comments Patient Update Care Team (unrecognized sect ion and content) Care Team Personnel Name: LYSSA SEBASTIAN DO Position: P4 Physician - Primary Care Med Service: Active Provider Member Role: Primary Care Physician Address: Address: [address] [place] [address] Care Team Related Persons Name: [employer] FOR RECORDS PERTAINING TO PATIENTS WHO ARE OR HAVE BEEN ENROLLED IN A CHEMICAL DEPENDENCY/SUBSTANCEABUSE PROGRAM, SOME INFORMATION MAY BE OMITTED. This clinical summary was aggregated from multiple sources. Caution should be exercised in using it in the provision of clinical care. This summary normalizes information from multiple sources, and as a consequence, information in this document may materially change the coding, format and clinical context of patient data. In addition, data may be omitted in some cases. CLINICAL DECISIONS SHOULD BE BASED ON THE PRIMARY CLINICAL RECORDS. [employer] [facility]. provides no warranty or guarantee of the accuracy or completeness of information in this document.
[2023-09-10 10:36] LABS: Hematocrit 43.5 % (37-47); Hemoglobin 14.2 g/dL (12.0-15.0); Mean Corp Hgb Conc 32.6 g/dL (32-36); Mean Corpuscular Hgb 28.9 pg (27.0-32.0); Mean Corpuscular Volume 88.6 fL (81-99); Mean Platelet Vol. 10.2 fl (6.2-12.0); Platelet Count 292 K/mm3 (150-450); RBC Distribution Width CV 12.8 % (11.6-14.6); RBC Distribution Width SD 41.5 fl (35.1-43.9); Red Blood Count 4.91 M/mm3 (4.2-5.4); White Blood Count 8.2 K/mm3 (4.4-11.0)
[2023-09-10 10:52] LABS: Vitamin B12 569 pg/mL (211-911)
[2023-09-10 10:59] LABS: ALB/GLOB Ratio 0.9 RATIO (0.9-2.4); AST(SGOT) 14 U/L (15-37); Alanine Aminotransfer ALT/SGPT 20 U/L (13-56); Albumin, Serum 3.6 g/dL (3.2-5.0); Alkaline Phosphatase 39 U/L (45-117); Anion Gap 5 (5-15); BUN 13 mg/dL (7-18); BUN/Creat Ratio 15.3 RATIO (10-20); Calcium,Total 9.1 mg/dL (8.5-10.1); Chloride 109 mmol/L (98-107); Cholesterol 121 mg/dL (200); Creatinine, Serum 0.85 mg/dL (0.55-1.02); EST Glomerular Filtration Rate 69 mL/min (>60); Est Glom Filt Rate - Afr Amer 84 mL/min (>60); Globulin 3.8 g/dL (2.2-4.2); Glucose 139 mg/dL (74-106); High Density Lipoprotein 36 mg/dL; Potassium 3.5 mmol/L (3.5-5.1); Protein, Total 7.4 g/dL (6.4-8.2); Sodium Level 141 mmol/L (136-145); Triglycerides 118 mg/dL; Very Low Density Lipoprotein 24 mg/dL (5-40)
[2023-09-10 11:09] LABS: Microalbumin,Random Urine 44.7 mg/L (NO RANGE EST.); Microalbumin:Creatinine Ratio 18.3 mg/g CRE (<30 mg/g CRE)
== END | disposition home or self-care (01) ==
PROVIDERS: PCP Preventive Medicine Occupational Medicine; Referring Provider Preventive Medicine Occupational Medicine; Visit Provider Preventive Medicine Occupational Medicine
DX: E78.5 Hyperlipidemia, unspecified (principal); E11.9 Type 2 diabetes mellitus without complications; I10 Essential (primary) hypertension; E53.8 Deficiency of other specified B group vitamins
CPT/HCPCS: 36415; 80053; 80061; 82043; 82570; 82607; 85027

== ENCOUNTER → 2023-09-24 | Outpatient (CLI) | payer MEDICARE, OTHER, SELFPAY ==
--- NOTE | 2023-09-24 14:18 | BI_ITS ---
MAMMOGRAPHY - BILATERAL SCREENING REASON FOR EXAM: Female, 78 years old. Routine annual screening examination. PERTINENT HISTORY: Sister with breast cancer. TECHNIQUE: Digital bilateral breast apoorva (3D mammographic acquisition) in the CC and MLO projections. 2-D mediolateral oblique (MLO) and craniocaudad (CC) views of both breasts were obtained. CAD: Full Field Digital Mammography with Computer Added Detection was performed. COMPARISON: Comparison is made with prior study September 21, 2022 and February 17, 2021. FINDINGS: Breast Composition: There are scattered areas of fibroglandular density. There are no dominant masses or suspicious calcifications. Stable small benign appearing bilateral axillary lymph nodes No other significant abnormalities are identified. There has been no significant change since the prior study. BI/SCRN MAMM (CAD)W/APOORVA BILAT IMPRESSION: Stable bilateral screening mammogram. Yearly follow-up mammogram recommended. (A) ASSESSMENT CATEGORY: BIRADS Category 2: Benign. A letter regarding these results will be sent to the patient by the facility within 30 days. Approximately 10% of breast cancers are not detected by mammography. A normal mammogram should not delay biopsy of a clinically suspicious abnormality. [id number] Electronically Signed: Marcelino Gomes MD at 15:20 EDT ,
== END | disposition home or self-care (01) ==
LOC: OPBI 14:17
PROVIDERS: PCP Preventive Medicine Occupational Medicine; Referring Provider Preventive Medicine Occupational Medicine; Visit Provider Preventive Medicine Occupational Medicine
DX: Z12.31 Encounter for screening mammogram for malignant neoplasm of breast (principal)
CPT/HCPCS: 77063; 77067

== ENCOUNTER → 2024-02-15 | Outpatient (CLI) | payer MEDICARE, OTHER, SELFPAY | END | disposition home or self-care (01) | LOC: MTLAB 15:12 | PROVIDERS: PCP Preventive Medicine Occupational Medicine; Referring Provider Student in an Organized Health Care Education/Training Program; Visit Provider Student in an Organized Health Care Education/Training Program | DX: E28.8 Other ovarian dysfunction (principal) | CPT/HCPCS: 36415; 84403 ==

== ENCOUNTER 2024-06-07 21:59 | Emergency (ER) | payer MEDICARE, OTHER, SELFPAY ==
[2024-06-07 21:59] VITALS: BP 171/86; PULSE 85; RESP 18; TEMP 37.1; O2SAT 98; BMI 34.9
--- NOTE | 2024-06-07 22:14 | EDS_ITS ---
HPI HPI - GI History of Present Illness Chief Complaint: GI Bleed Informant: patient and spouse/S.O. Narrative Narrative: 78-year-old female presents with bloody diarrhea that just started within the last hour, she has gone about 6 times, she states there is a lot of blood. She denies any pain but has intense feeling of needing to have a bowel movement. She denies any nausea, vomiting, presyncopal symptoms. She takes no antiplatelet or anticoagulant medications. She had seen some mucus in the diarrhea such as when she has Crohn's flareups, but she has never had bleeding with her Crohn's issues in the past. She has a very well-controlled Crohn's without being on any maintenance medication or having had any bowel surgery for this and follows with Dr. Hargrove. She does not recall being told having diverticulosis with colonoscopies or ever having episodes of diverticulitis in the past. No recent antibiotics in past couple months. No undercooked meats or raw fish ingestion or other suspicious food intake. No known sick contacts with similar. No travel out of the area recently. [facility] Medical History (Updated 06/08/24 @ 00:[address] Neal Maldonado MD) Crohn's disease Diabetes mellitus Hyperlipidemia Hypertension Hyperandrogenemia Home Medications ?Medication ?Instructions ?Recorded ?Last Taken ?Type simvastatin 20 mg tablet 20 mg PO QHS 06/18/14 10/02/14 History lisinopril 5 mg tablet 5 mg PO DAILY #30 TABLETS 10/08/14 Unknown Rx cholecalciferol (vitamin D3) 25 2,000 unit PO DAILY 05/26/15 Unknown History mcg (1,000 unit) tablet (Vitamin D3) coenzyme Q10 200 mg capsule (Co 200 mg PO DAILY 06/10/18 Unknown History Q-10) Lactobacillus paracasei and 1 cap PO DAILY 01/02/23 Unknown History rhamnosus 11 billion cell capsule (Culturelle Advanced Regularity) sitagliptin phosphate 50 mg tablet 50 mg PO DAILY 01/02/23 Unknown History (Januvia) estradiol 0.025 mg/24 hr 1 patch topical 06/08/24 Unknown History semiweekly transdermal patch prednisone 10 mg tablet 10 mg PO UD #30 tabs 06/08/24 Unknown Rx Allergy/AdvReac Type Severity Reaction Status Date / Time bee venom protein (honey bee) Allergy Severe Anaphylaxis Verified 06/07/24 21:59 ciprofloxacin (From Cipro) Allergy Anaphylaxis Verified 06/07/24 21:59 ciprofloxacin HCl (From Allergy Anaphylaxis Verified 06/07/24 21:59 Cipro) aspirin AdvReac Other Verified 06/07/24 21:59 cetirizine HCl (From Zyrtec) AdvReac Rash Verified 06/07/24 21:59 nitroglycerin AdvReac Anaphylaxis Verified 06/07/24 21:59 propoxyphene HCl (From AdvReac Other Verified 06/07/24 21:59 Darvon) tioconazole (From Monistat 1 AdvReac Rash Verified 06/07/24 21:59 (tioconazole)) tramadol AdvReac Unknown Verified 06/07/24 21:59 Family History (Updated 12/18/23 @ 15:58 by Zahraa Alvarado) Sister Asthma Diabetes Blind Sister Breast cancer Father Diabetes Myocardial infarction Mother CVA (cerebral vascular accident) Grandmother Diabetes Sister Thyroid disorder Other Crohn's disease Hypertension Surgical History H/O: hysterectomy History of tonsillectomy Social History number of children: 2 Smoking Status: Former smoker additional social history: Spouse - Ed ROS ROS ED Constitutional Constitutional ED: Denies chills or fever(s) Eyes Eyes: Denies change in vision or diplopia ENT ENT ED: Denies rhinorrhea or sore throat Cardiovascular Cardiovascular: Denies chest pain, lightheadedness, palpitations or syncope Respiratory/Chest Respiratory/Chest: Denies cough or dyspnea Gastrointestinal Gastrointestinal: Reports as per HPI, diarrhea, hematochezia, tenesmus and other Details: mucous in diarrhea ; Denies abdominal pain, melena, nausea or vomiting Genitourinary Genitourinary ED: Denies dysuria or hematuria Musculoskeletal Musculoskeletal: Denies back pain or neck pain Integumentary Denies abscess or rash Neurologic Neurologic: Denies headache(s), paresthesias or weakness Psychiatric Psychiatric: Denies anxiety or suicidal thoughts EXAM Physical Exam Const Vital Signs: 06/07/24 21:59 06/07/24 23:59 06/08/24 00:14 Temperature 98.8 F 98 F Temperature Source Temporal Oral Pulse Rate 85 59 L Pulse Rate [Lying] 65 Pulse Rate [Sitting (for 1 minute prior to obtaining)] 60 Pulse Rate [Standing (for 1 minute prior to obtaining)] 67 Respiratory Rate 18 16 Blood Pressure 171/86 H 155/73 H Blood Pressure [Lying] 151/67 H Blood Pressure [Sitting (for 1 minute prior to obtaining)] 163/74 H Blood Pressure [Standing (for 1 minute prior to obtaining)] 160/73 H Blood Pressure Mean 114 100 Blood Pressure Mean [Lying] 95 Blood Pressure Mean [Sitting (for 1 minute prior to obtaining)] 103 Blood Pressure Mean [Standing (for 1 minute prior to obtaining)] 102 Pulse Ox 98 98 Oxygen Delivery Method Room Air Room Air Positive well nourished and well developed General Appearance ED: well developed and NAD HEENT Reports moist mucous membranes normocephalic and atraumatic Eyes PERRL and EOMs intact bilaterally Neck full ROM and supple Resp normal respiratory effort and clear to auscultation bilaterally Cardio regular rate, regular rhythm and no murmurs GI non-tender and non-distended Auscultation: normoactive bowel sounds Palpation: soft Back/Spine no CVA tenderness General Back: other FROM Extremity normal to inspection General Extremety ED: Negative for edema, pulses abnormal or tenderness General Extremity: Negative for edema or pulses abnormal Neuro oriented x3, CN's II-XII intact bilaterally and no sensory deficits noted Sensorium / Orientation: awake and alert Motor Exam: strength 5/5 throughout Skin no rashes or lesions noted and no wounds MDM MDM MDM Narrative Medical decision making narrative: Obtained labs and observed the patient for little while. While I was evaluating her she was having symptoms of tenesmus and really felt the need to go but then tried and was unable to have any significant bowel movement. When she wiped there was a trace of blood only. She brought underwear containing a prior bowel movement with her, it contains a small amount of blood clot and nothing else. She is hemodynamically stable we did orthostatics and they were normal. She has a slight elevation of her BUN, but she is not anemic, and she does not have s ymptoms to suggest this is an acute upper GI bleed. Rather this sounds more like a lower. Differential includes diverticulosis, Crohn's-related bleeding, colonic angiodysplasia, colonic mass. With observation, her symptoms resolved and she states, I feel like it is done and I am fine now. No further diarrhea, no tenesmus, no abdominal discomfort. For these reasons I do not think she needs an emergent CT of the abdomen/pelvis right now to look for Crohn's complications, especially since she has had no pain or nausea/vomiting. However with further observation, she did have a bout of some bloody diarrhea and I was able to witness the sample; it looks like mostly diarrhea stool with some blood mixed in as opposed to straight lower GI bleeding. Therefore, with her labs being normal and without any anemia, I think reasonable to treat her as a Crohn's exacerbation with steroids. I think she should follow-up with her GI doctor and can safely be discharged, she is amenable to all that as well. I discussed with Dr. Sauer, he agrees with outpatient follow-up with her dental technician and we discussed with the patient reasons to return she is comfortable going home at this time. Lab Data Attestation: I reviewed the patient's lab results. Labs: Laboratory Results - last 24 hr 06/07/24 23:35 WBC 6.8 RBC 4.48 Hgb 13.6 Hct 40.1 MCV 89.5 MCH 30.4 MCHC 33.9 RDW Std Deviation 40.3 RDW Coeff of Ho 12.3 Plt Count 271 MPV 9.4 Immature Gran % (Auto) 0.300 Neut % (Auto) 73.7 H Lymph % (Auto) 16.5 L Marion % (Auto) 7.1 Eos % (Auto) 1.8 Baso % (Auto) 0.6 Absolute Neuts (auto) 5.0 Absolute Lymphs (auto) 1.12 Nucleated RBC % 0 Sodium 140 Potassium 3.6 Chloride 108 H Carbon Dioxide 25.0 Anion Gap 7 BUN 20 H Creatinine 0.82 Estim Creat Clear Calc 63.29 Est GFR (MDRD) Af Amer 87 Est GFR (MDRD) Non-Af 72 BUN/Creatinine Ratio 24.5 H Glucose 153 H Calcium 9.1 Total Bilirubin 0.30 AST 16 ALT 22 Alkaline Phosphatase 42 L Total Protein 7.8 Albumin 3.8 Globulin 4.0 Albumin/Globulin Ratio 1.0 Management Discussion w/another healthcare provider: Charge Account Clerk (Gastroenterology Dr. Shameka porter) Discharge Plan Triage Chief Complaint: GI Bleed ED Provider: Neal Maldonado Dx/Rx/DC Orders Clinical Impression: Acute lower gastrointestinal bleeding, Hx of Crohn's disease Instructions: ED Lower GI Bleeding (Stable) Prescriptions: New prednisone 10 mg tablet 10 mg PO UD Qty: 30 0RF Rx Instructions: Take 4 tablets daily for 3 days, then 3 daily for 3 days, then 2 daily for 3 days, then 1 a day for 3 days No Action Januvia 50 mg tablet 50 mg PO DAILY Culturelle Advanced Regularity 11 billion cell capsule 1 cap PO DAILY simvastatin 20 MG tablet 20 mg PO QHS Patient Comments: lowers cholesterol lisinopril 5 MG tablet 5 mg PO DAILY Qty: 30 0RF Patient Comments: blood pressure cholecalciferol (vitamin D3) [Vitamin D3] 1,000 UNIT tablet 2,000 unit PO DAILY Patient Comments: Vitamin -supplement coenzyme Q10 [Co Q-10] 200 MG capsule 200 mg PO DAILY estradiol 0.025 mg/24 hr patch semiweekly 1 patch topical Primary Care Provider: Ortega Sebastian Referrals: Ortega Sebastian DO [Primary Care Provider] - Ramos Hargrove MD [Non-Staff] - As soon as possible Print Language: Zambian Disposition Disposition: Home, Self Care
[2024-06-07 23:47] LABS: Absolute Lymphocyte Count 1.12 X10^3/uL (0.83-4.51); Basophil# 0.04 X10^3/uL; Basophil% 0.6 % (0-1); Eosinophil# 0.12 X10^3/uL; Eosinophils% 1.8 % (0-5); Hematocrit 40.1 % (37-47); Hemoglobin 13.6 g/dL (12.0-15.0); Lymphocyte # 1.12 X10^3/ul (0.83-4.51); Lymphocyte % 16.5 % (19-41); Mean Corp Hgb Conc 33.9 g/dL (32-36); Mean Corpuscular Hgb 30.4 pg (27.0-32.0); Mean Corpuscular Volume 89.5 fL (81-99); Mean Platelet Vol. 9.4 fl (6.2-12.0); Monocyte# 0.48 X10^3/uL; Monocyte% 7.1 % (0-10); NRBC Flagged by Analyzer 0 % (0-5); Neutrophil # 5.01 X10^3/uL (2.7-7.7); Neutrophil % 73.7 % (47-70); Platelet Count 271 K/mm3 (150-450); RBC Distribution Width CV 12.3 % (11.6-14.6); RBC Distribution Width SD 40.3 fl (35.1-43.9); Red Blood Count 4.48 M/mm3 (4.2-5.4); White Blood Count 6.8 K/mm3 (4.4-11.0)
[2024-06-07 23:59] VITALS: BP 155/73; PULSE 59; RESP 16; TEMP 36.6; O2SAT 98
[2024-06-08 00:11] LABS: AST(SGOT) 16 U/L (15-37); Alanine Aminotransfer ALT/SGPT 22 U/L (13-56); Albumin, Serum 3.8 g/dL (3.2-5.0); Alkaline Phosphatase 42 U/L (45-117); Anion Gap 7 (5-15); BUN 20 mg/dL (7-18); BUN/Creat Ratio 24.5 RATIO (10-20); Calcium,Total 9.1 mg/dL (8.5-10.1); Chloride 108 mmol/L (98-107); Creatinine, Serum 0.82 mg/dL (0.55-1.02); EST Glomerular Filtration Rate 72 mL/min (>60); Est Glom Filt Rate - Afr Amer 87 mL/min (>60); Estimated Creatinine Clearance 63.29 ml/min; Glucose 153 mg/dL (74-106); Potassium 3.6 mmol/L (3.5-5.1); Protein, Total 7.8 g/dL (6.4-8.2); Sodium Level 140 mmol/L (136-145)
[2024-06-08 00:14] VITALS: BP 151/67; BP 160/73; BP 163/74; PULSE 60; PULSE 65; PULSE 67
[2024-06-08] MEDS: MethylPREDNISolone 125 MG/2 ML Vial IV (00:38)
[2024-06-08 00:42] VITALS: BP 161/72; PULSE 60; RESP 16; TEMP 36.6; O2SAT 99
== END 2024-06-08 00:45 | disposition home or self-care (01) ==
PROVIDERS: Emergency Provider Emergency Medicine; PCP Preventive Medicine Occupational Medicine; Referring Provider Emergency Medicine; Visit Provider Emergency Medicine
DX: K50.911 Crohn's disease, unspecified, with rectal bleeding (principal); E11.9 Type 2 diabetes mellitus without complications; I10 Essential (primary) hypertension; E78.5 Hyperlipidemia, unspecified; Z79.84 Long term (current) use of oral hypoglycemic drugs; Z79.899 Other long term (current) drug therapy; Z87.891 Personal history of nicotine dependence
CPT/HCPCS: 80053; 83630; 85025; 86850; 86900; 86901; 87506; 96374; 99285; A4216

== ENCOUNTER → 2024-08-11 | Outpatient (CLI) | payer MEDICARE, OTHER, SELFPAY ==
[2024-08-11 16:00] LABS: Hematocrit 37.6 % (37-47); Hemoglobin 12.7 g/dL (12.0-15.0); Mean Corp Hgb Conc 33.8 g/dL (32-36); Mean Corpuscular Hgb 30.2 pg (27.0-32.0); Mean Corpuscular Volume 89.3 fL (81-99); Mean Platelet Vol. 10.3 fl (6.2-12.0); Platelet Count 270 K/mm3 (150-450); RBC Distribution Width CV 12.6 % (11.6-14.6); RBC Distribution Width SD 40.7 fl (35.1-43.9); Red Blood Count 4.21 M/mm3 (4.2-5.4); White Blood Count 7.5 K/mm3 (4.4-11.0)
[2024-08-11 16:01] LABS: Vitamin D,25 Hydroxy 54.9 ng/mL
[2024-08-11 16:09] LABS: Hemoglobin A1c 5.2 % (3.8-5.6)
[2024-08-11 16:26] LABS: AST(SGOT) 12 U/L (15-37); Alanine Aminotransfer ALT/SGPT 20 U/L (13-56); Albumin, Serum 3.7 g/dL (3.2-5.0); Alkaline Phosphatase 43 U/L (45-117); Anion Gap 5 (5-15); BUN 14 mg/dL (7-18); BUN/Creat Ratio 17.9 RATIO (10-20); Calcium,Total 9.3 mg/dL (8.5-10.1); Chloride 109 mmol/L (98-107); Cholesterol 143 mg/dL (200); Creatinine, Serum 0.78 mg/dL (0.55-1.02); EST Glomerular Filtration Rate 76 mL/min (>60); Est Glom Filt Rate - Afr Amer 91 mL/min (>60); Globulin 3.7 g/dL (2.2-4.2); Glucose 136 mg/dL (74-106); High Density Lipoprotein 45 mg/dL; Potassium 3.7 mmol/L (3.5-5.1); Protein, Total 7.4 g/dL (6.4-8.2); Sodium Level 141 mmol/L (136-145); T4 Free Direct 0.85 ng/dL (0.76-1.46); Triglycerides 115 mg/dL; Very Low Density Lipoprotein 23 mg/dL (5-40)
[2024-08-11 16:32] LABS: Microalbumin,Random Urine 30.9 mg/L (NO RANGE EST.); Microalbumin:Creatinine Ratio 19.8 mg/g CRE (<30 mg/g CRE)
== END | disposition home or self-care (01) ==
LOC: MTLAB 12:56
PROVIDERS: PCP Preventive Medicine Occupational Medicine
DX: Z00.00 Encounter for general adult medical examination without abnormal findings (principal); K50.00 Crohn's disease of small intestine without complications; E11.69 Type 2 diabetes mellitus with other specified complication; I10 Essential (primary) hypertension; E78.5 Hyperlipidemia, unspecified
CPT/HCPCS: 36415; 80053; 80061; 82043; 82306; 82570; 83036; 84439; 84443; 85027

== ENCOUNTER → 2024-09-01 | Outpatient (CLI) | payer MEDICARE, OTHER, SELFPAY | END | disposition home or self-care (01) | LOC: MTLAB 10:51 | PROVIDERS: PCP Preventive Medicine Occupational Medicine; Referring Provider Nurse Practitioner Adult Health; Visit Provider Nurse Practitioner Adult Health | DX: E28.8 Other ovarian dysfunction (principal) | CPT/HCPCS: 36415; 84403 ==

== ENCOUNTER 2024-10-27 14:50 | Outpatient (RCR) | payer MEDICARE, OTHER, SELFPAY | END 2024-10-27 19:00 | disposition home or self-care (01) | LOC: PT 14:50 | PROVIDERS: PCP Preventive Medicine Occupational Medicine; Referring Provider Podiatrist Foot & Ankle Surgery; Visit Provider Podiatrist Foot & Ankle Surgery | DX: Z91.81 History of falling (principal) | CPT/HCPCS: 97161 ==

== ENCOUNTER → 2024-12-19 | Outpatient (CLI) | payer MEDICARE, OTHER, SELFPAY ==
--- NOTE | 2024-12-19 14:51 | ART_ITS ---
Reason For Study Reason For Study: PVD Procedure A bilateral lower extremity continuous wave Doppler with analog waveform analysis,segmental pressures,and ankle brachial indexes without exercise. Left Segmental Pressures Left brachial= 142mmHg. Left posterior tibial artery = 167mmHg. Left dorsalis pedis artery = 157mmHg. The left posterior tibial artery waveforms are triphasic. The left dorsalis pedis waveforms are triphasic. Right Segmental Pressures Right brachial= 132mmHg. Right posterior tibial artery = 151mmHg. Right dorsalis pedis artery = 151mmHg. Right digit = 155 mmHg. The right posterior tibial artery waveforms are triphasic. The right dorsalis pedis waveforms are triphasic. Indices The right resting ankle brachial index is 1.06. The right ankle brachial index by the posterior tibial artery is 1.06. The right ankle brachial index by the dorsalis pedis is 1.06. The right digital- brachial index is 1.09. The left resting ankle brachial index is 1.18. The left ankle brachial index by the posterior tibial artery is 1.18. The left ankle brachial index by the dorsalis pedis is 1.11. LT digit was NONCOMPRESSIBLE. VL/Lower Ext Art Exam w/o Exercis Interpretation Summary Right MIHAI 1.06, normal. TBI and Doppler/PVR waveforms of the right leg normal a t rest. Left MIHAI 1.18, normal. Doppler/PVR waveforms of the left leg normal at rest. Ordering Physician: BANDAR DUQUE Referring Physician: Ortega Sebastian Performed By: Mignon Ruff RVT, RDCS
== END | disposition home or self-care (01) ==
LOC: CVS 14:33
PROVIDERS: PCP Preventive Medicine Occupational Medicine; Referring Provider Nurse Practitioner Adult Health; Visit Provider Nurse Practitioner Adult Health
DX: I73.9 Peripheral vascular disease, unspecified (principal); M79.604 Pain in right leg
CPT/HCPCS: 93923

== ENCOUNTER 2025-04-20 15:00 | Outpatient (RCR) | payer MEDICARE, OTHER, SELFPAY ==
--- NOTE | 2025-04-13 15:48 | HP.PTEVAL_ITS ---
Patient's Visit Information Visit Information Visit Information: WHITNEY HILLS is a 79 year old F referred to Physical Therapy by Dr. Franki Jurado MD with a diagnosis of BPPV/vertigo. Date of Evaluation: 04/13/25 Physical Therapist: DONG Chapa Visit Plan Frequency: 1x/Week Duration: 6 Weeks Plan: 1X/ week for 4 weeks to attempt to abolish dizziness by stretching, MT to the R side paraspinals and occiput region B, postural exercises (strength and stretch) with HEP Subjective Subjective: This all started 2-3 weeks ago. [place] both eyes were spinning and went to PCP and sent her to ER. 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 She gets vertigo if she gets air down in her ear and her hearing aides blocks the air. Ear nose and throat Dr said wanted hearing test and it was fine. Dr adjusted her neck with a crack and her dizziness went away. She has had a couple little incidences and she lays down and it does not last too long. She has not had any dizziness today. The last time she had dizziness was 2-3 days ago and it did not last long. She has no dizziness with rolling over in bed or getting into the bed. When she gets the dizziness happens it feels like her eyes are rolling inside her head ad the small episodes that she has been having feel like if she does not do something then it will go full b lown. If she rubs the R side of her neck it will go away. She has not had any x-rays of her neck. Objective Objective: - R and L Hallpike for dizziness or nystagmus Tender along the R upper occiput region and pain relieved with suboccip release Tender along the R upper c-spine paraspinals and able to turn neck better after some light MT to this region Discussed with pt to use a towel roll in her pillow to help but her neck out of flexion when she sleeps as her has to sleep with the HOB elevated and pushing her neck FW. Discussed possible dizziness from cervicogenic Balance/Special Test Scores Dizziness Score: 8 Goals Goal 1:: I HEP Goal Time Frame: 4-6 Weeks Goal 2:: Abolish dizziness Goal Time Frame: 4-6 Weeks Goal 3:: Improve R side of neck tightness in the hopes this decreases cervical dizziness Rehabilitation Potential Rehabilitation Potential: Good Anticipated Interventions Text: Thank you for the opportunity to evaluate your patient. For Medicare and Medicare HMO plans, please review the plan of care and approve it. It will need to be FAXED BACK to us at [phone] for Medicare purposes. For Medicare only, by signing this I certify the plan of care. Please let me know if there are questions or concerns regarding this plan of care. Physician Signature: Date:
--- NOTE | 2025-04-20 16:26 | HP.PTDCSUM ---
Discharge Summary D/C summary: It has been my pleasure to treat WHITNEY HILLS referred by Dr. Franki Jurado MD, with the diagnosis of BPPV/vertigo for a total of 2 visit(s). Discharge Date: 04/20/25 Please see the following information for a summary of their discharge status. Subjective Subjective: Pt reports that she has a problem with her R knee and hip and her back has been bothering her since we had to test for the vertigo. She is not sure of the pain is her hip, back or knee. She describes her symptoms as having trouble walking (something is preventing her from walking and was always extremely active and she can not do that anymore and she is unsteady and does not know why). Her R knee will give out on her sometimes. She has pain in her mid back and down the R buttock. Pt reports that she has been rubbing her neck out at home and using the towel in her pillow and she has not had that dizzy feeling Pain back: Pain Intensity (Out of 10): 5 R leg: Pain Intensity (Out of 10): 5 Objective Objective/Function: Pt has no dizziness but back, hip and leg pain that is really bad Goals Goal 1:: I HEP Goal Progress: Goal Met Goal 2:: Abolish dizziness Goal Progress: Progressing Goal 3:: Improve R side of neck tightness in the hopes this decreases cervical dizziness Goal Progress: Progressing Plan Plan: DC PT D/C Information Discharge Comments: DC PT d/c sentence: If there are questions or concerns regarding this patient's physical therapy, please feel free to call me at [phone]. Thank you for the referral of this patient. Sincerely, Ksenia Pierre, MPT Balance/Gait/Functional tests Balance/Special Test Scores Dizziness Score: 8
== END 2025-04-20 19:00 | disposition home or self-care (01) ==
LOC: PT 15:00
PROVIDERS: PCP Nurse Practitioner Family; Referring Provider Otolaryngology; Visit Provider Otolaryngology
DX: H81.11 Benign paroxysmal vertigo, right ear (principal); H90.3 Sensorineural hearing loss, bilateral
CPT/HCPCS: 97161; 97530

== ENCOUNTER → 2025-05-21 | Outpatient (CLI) | payer MEDICARE, OTHER, SELFPAY ==
[2025-05-21 11:07] LABS: AST(SGOT) 17 U/L (<=31); Alanine Aminotransfer ALT/SGPT 10 U/L (<=34); Albumin, Serum 4.2 g/dL (3.4-4.8); Alkaline Phosphatase 49 U/L (35-104); Anion Gap 10 (5-15); BUN 15 mg/dL (4-19); BUN/Creat Ratio 19.7 RATIO (10-20); Calcium,Total 9.6 mg/dL (7.6-11.0); Carbon Dioxide 26.3 mmol/L (21.0-32.0); Chloride 106 mmol/L (98-108); Cholesterol 128 mg/dL (<=200); Globulin 3.2 g/dL (2.2-4.2); Glucose 150 mg/dL (70-99); Low Density Lipoprotein Calc. 64 mg/dL; Potassium 4.0 mmol/L (3.3-5.1); Triglycerides 144 mg/dL; Very Low Density Lipoprotein 29 mg/dL (5-40); cholesterol:hdl ratio screen 3.28
== END | disposition home or self-care (01) ==
LOC: MTLAB 08:12
PROVIDERS: PCP Nurse Practitioner Family; Referring Provider Nurse Practitioner Family; Visit Provider Nurse Practitioner Family
DX: Z00.00 Encounter for general adult medical examination without abnormal findings (principal)
CPT/HCPCS: 36415; 80053; 80061; 83036